=== PATIENT | female | born 1940 | race Caucasian/White ===

== ENCOUNTER → 2016-09-03 | Outpatient (CLI) | payer MEDICARE ==
[2016-09-03 14:52] LABS: Ionized Calcium 5.1 mg/dL (4.5-5.3)
[2016-09-03 15:05] LABS: Calcium 9.5 mg/dL (8.4-10.2)
== END | disposition home or self-care (01) ==
LOC: LABWHC1 13:56
PROVIDERS: ATTEND Internal Medicine
DX: E83.52 Hypercalcemia (principal)
CPT/HCPCS: 36415; 82310; 82330

== ENCOUNTER → 2017-07-07 | Outpatient (CLI) | payer MEDICARE ==
--- NOTE | 2017-07-07 17:33 | US ---
EXAMINATION TYPE: US venous doppler duplex LE BI DATE OF EXAM: 07/07/2017 4:57 PM COMPARISON: NONE CLINICAL HISTORY: Z47.1 Aftercare following joint replacement surgery. Left total hip replacement 2 w eeks prior; bilateral ankle swelling, prior DVT bilateral legs in per patient; on Coumadin. SIDE PERFORMED: Bilateral TECHNIQUE: The lower extremity deep venous system is examined utilizing real time linear array sonog haydee with graded compression, doppler sonography and color-flow sonography. VESSELS IMAGED: Common Femoral Vein Deep Femoral Vein Greater Saphenous Vein * Femoral Vein Popliteal Vein Small Saphenous Vein * Proximal Calf Veins (* superficial vessels) Right Leg: Non occluding chronic wall changes are noted in Right Femoral Vein and in one of two calf veins. Left Leg: Non occluding chronic wall changes are noted in lower Left Popliteal Vein and in one of tw o calf veins. Tech findings reported at exam's end to Dr Matos, utilization supervisor for Dr Gusman. IMPRESSION: The exam shows bilateral limited chronic deep venous thrombosis. No evidence of acute de ep venous thrombosis.
== END | disposition home or self-care (01) ==
LOC: RADUSWWP 15:48
PROVIDERS: ATTEND Orthopaedic Surgery
DX: I82.503 Chronic embolism and thrombosis of unspecified deep veins of lower extremity, bilateral (principal)
CPT/HCPCS: 93970

== ENCOUNTER 2017-08-09 08:44 | Inpatient (IN) | payer MEDICARE ==
[2017-08-09] MEDS ORDERED: LORazepam 2 MG/ML INJ IV STA (08:50)
[2017-08-09] MEDS ORDERED: IPRATROPIUM 0.5 MG/2.5 ML NEBU INHALATION STA (08:50)
[2017-08-09] MEDS ORDERED: SODIUM CHLORIDE 0.9% 500 ML IV STA (08:50)
[2017-08-09] MEDS ORDERED: ALBUTEROL NEBULIZED 2.5 MG/3 ML INHALATION STA (08:50)
[2017-08-09] MEDS ORDERED: methylPREDNISolone SOD SUCCI 125 MG/2 ML VIAL IV STA (08:50)
[2017-08-09] MEDS ORDERED: SODIUM CHLORIDE 0.9% 1,000 ML IV STA (08:50)
--- NOTE | 2017-08-09 08:59 | ED ---
General Adult HPI - General Chief complaint: Shortness of Breath Stated complaint: Diff Breathing Time Seen by Provider: 08/09/17 08:45 Source: patient, EMS, RN notes reviewed, old records reviewed Mode of arrival: EMS Limitations: no limitations - History of Present Illness Initial comments: This is a 68-year-old female to the ER for evaluation today. Patient presents here today for evaluation in regards to shortness of breath patient reassurance of breath. Patient unable to give history secondary to significant shortness of breath. Pulse ox per EMS at home was in the 60s to patiently currently on nonrebreather pulse ox in the 90s. History obtained by EMS recent diagnosis of pneumonia, patient is complaining of cough congestion shortness of breath, denies fevers no chest pain - Related Data Home Medications Medication Instructions Recorded Confirmed Acetaminophen/Diphenhydramine 1 tab PO HS PRN 06/17/17 08/09/17 [Tylenol PM 500-25mg] Aspirin EC [Ecotrin Low Dose] 81 mg PO DAILY 06/17/17 08/09/17 Cetirizine HCl [Zyrtec] 10 mg PO DAILY 06/17/17 08/09/17 Metoprolol Succinate (ER) [Toprol 50 mg PO BID 06/17/17 08/09/17 XL] Omeprazole Magnesium [Prilosec OTC] 20 mg PO DAILY 06/17/17 08/09/17 Telmisartan [Micardis] 80 mg PO DAILY 06/17/17 08/09/17 Albuterol Nebulized [Ventolin 2.5 mg INHALATION RT-Q2H PRN 08/09/17 08/09/17 Nebulized] Albuterol Sulfate [Proair Hfa] 1 - 2 puff INHALATION RT-Q6H PRN 08/09/17 Furosemide [Lasix] 20 mg PO DAILY 08/09/17 08/09/17 Warfarin [Coumadin] 2.5 mg PO DAILY@1800 08/09/17 08/09/17 traMADol HCL [Ultram] 50 mg PO Q6H PRN 08/09/17 08/09/17 Previous Rx's Medication Instructions Recorded Sennosides-Docusate Sodium 1 tab PO BID #60 tablet 06/21/17 [Senokot-S] amLODIPine [Norvasc] 5 mg PO HS tab 06/22/17 Allergies Allergy/AdvReac Type Severity Reaction Status Date / Time aspirin Allergy Unknown Verified 08/09/17 09:25 codeine Allergy Unknown Verified 08/09/17 09:25 insect venom Allergy Unknown Verified 08/09/17 09:25 Penicillins Allergy Unknown Verified 08/09/17 09:25 shellfish derived [Shellfish] Allergy Unknown Verified 08/09/17 09:25 Review of Systems ROS Statement: Those systems with pertinent positive or pertinent negative responses have been documented in the HPI. ROS Other: All systems not noted in ROS Statement are negative. Past Medical History Past Medical History: COPD, Hypertension History of Any Multi-Drug Resistant Organisms: None Reported Past Surgical History: Section, Cholecystectomy, Hernia Repair, Orthopedic Surgery, Tonsillectomy, Tubal Ligation Past Anesthesia/Blood Transfusion Reactions: No Reported Reaction Additional Past Anesthesia/Blood Transfusion Reaction / Comment(s): never had a blood transfusion Past Psychological History: No Psychological Hx Reported Smoking Status: Former smoker Past Alcohol Use History: None Reported Past Drug Use History: None Reported - Past Family History Father Family Medical History: No Reported History Mother Family Medical History: No Reported History General Exam Limitations: no limitations General appearance: alert, in no apparent distress, anxious Head exam: Present: atraumatic, normocephalic, normal inspection Eye exam: Present: normal appearance, PERRL, EOMI. Absent: scleral icterus, conjunctival injection, periorbital swelling ENT exam: Present: normal exam, mucous membranes moist Neck exam: Present: normal inspection. Absent: tenderness, meningismus, lymphadenopathy Respiratory exam: Present: normal lung sounds bilaterally, respiratory distress , wheezes, accessory muscle use, decreased breath sounds, prolonged expiratory. Absent: rales, rhonchi, stridor Cardiovascular Exam: Present: normal rhythm, tachycardia, normal heart sounds. Absent: systolic murmur, diastolic murmur, rubs, gallop, clicks GI/Abdominal exam: Present: soft, normal bowel sounds. Absent: distended, tenderness, guarding, rebound, rigid Extremities exam: Present: normal inspection, full ROM, normal capillary refill. Absent: tenderness, pedal edema, joint swelling, calf tenderness Back exam: Present: normal inspection Neurological exam: Present: alert, oriented X3, CN II-XII intact Psychiatric exam: Present: normal affect, normal mood Skin exam: Present: warm, dry, intact, normal color. Absent: rash Course Vital Signs 08/09/17 08/09/17 08/09/17 08:45 08:55 09:08 Temperature 98.4 F Pulse Rate 114 H 110 H 107 H Respiratory 39 H 36 H Rate Blood Pressure 187/91 O2 Sat by Pulse 86 L 99 Oximetry 08/09/17 08/09/17 08/09/17 09:17 09:25 09:55 Temperature Pulse Rate 105 H 111 H 113 H Respiratory 29 H Rate Blood Pressure 132/63 O2 Sat by Pulse 97 Oximetry 08/09/17 08/09/17 10:04 10:30 Temperature Pulse Rate 113 H 114 H Respiratory 36 H Rate Blood Pressure 136/59 O2 Sat by Pulse 93 L Oximetry - Reevaluation(s) Reevaluation #1: 08/09/17 10:44 no improvfement w breathing treatment, patient to be placed on bipap EKG Findings - EKG Comments: EKG Findings:: EKG shows sinus tachycardia rate of 107, LA 146, QRS 68, QTc 427 - EKG Results: EKG: interpreted by ANN Medical Decision Making - Medical Decision Making 76 female to the ED co sob, hypoxia, cough and congestion, patient is placed on bipap secondarily to work of breathing, patient has low o2, improved with breathing treatments, and o2 - Lab Data Result diagrams: 08/09/17 08:55 08/09/17 08:55 Lab Results 08/09/17 08/09/17 08/09/17 Range/Units 08:55 08:55 08:55 WBC 12.4 H (3.8-10.6) k/uL RBC 4.25 (3.80-5.40) m/uL Hgb 12.3 (11.4-16.0) gm/dL Hct 39.7 (34.0-46.0) % MCV 93.6 (80.0-100.0) fL MCH 28.8 (25.0-35.0) pg MCHC 30.8 L (31.0-37.0) g/dL RDW 15.2 (11.5-15.5) % Plt Count 257 (150-450) k/uL Neutrophils % 75 % Lymphocytes % 21 % Monocytes % 3 % Eosinophils % 0 % Basophils % 0 % Neutrophils # 9.3 H (1.3-7.7) k/uL Lymphocytes # 2.6 (1.0-4.8) k/uL Monocytes # 0.3 (0-1.0) k/uL Eosinophils # 0.0 (0-0.7) k/uL Basophils # 0.0 (0-0.2) k/uL Hypochromasia Moderate PT (9.0-12.0) sec INR (<1.2) APTT (22.0-30.0) sec Sodium (137-145) mmol/L Potassium (3.5-5.1) mmol/L Chloride (98-107) mmol/L Carbon Dioxide (22-30) mmol/L Anion Gap mmol/L BUN (7-17) mg/dL Creatinine (0.52-1.04) mg/dL Est GFR (MDRD) Af Amer (>60 ml/min/1.73 sqM) Est GFR (MDRD) Non-Af (>60 ml/min/1.73 sqM) Glucose (74-99) mg/dL Calcium (8.4-10.2) mg/dL Magnesium (1.6-2.3) mg/dL Total Bilirubin (0.2-1.3) mg/dL AST (14-36) U/L ALT (9-52) U/L Alkaline Phosphatase (38-126) U/L Total Creatine Kinase <20 L (30-135) U/L CK-MB (CK-2) 1.3 (0.0-2.4) ng/mL CK-MB (CK-2) Rel Index Troponin I <0.012 (0.000-0.034) ng/mL NT-Pro-B Natriuret Pep 375 pg/mL Total Protein (6.3-8.2) g/dL Albumin (3.5-5.0) g/dL 08/09/17 08/09/17 Range/Units 08:55 08:55 WBC (3.8-10.6) k/uL RBC (3.80-5.40) m/uL Hgb (11.4-16.0) gm/dL Hct (34.0-46.0) % MCV (80.0-100.0) fL MCH (25.0-35.0) pg MCHC (31.0-37.0) g/dL RDW (11.5-15.5) % Plt Count (150-450) k/uL Neutrophils % % Lymphocytes % % Monocytes % % Eosinophils % % Basophils % % Neutrophils # (1.3-7.7) k/uL Lymphocytes # (1.0-4.8) k/uL Monocytes # (0-1.0) k/uL Eosinophils # (0-0.7) k/uL Basophils # (0-0.2) k/uL Hypochromasia PT 22.3 H (9.0-12.0) sec INR 2.5 H (<1.2) APTT 26.3 (22.0-30.0) sec Sodium 145 (137-145) mmol/L Potassium 3.3 L (3.5-5.1) mmol/L Chloride 99 (98-107) mmol/L Carbon Dioxide 39 H (22-30) mmol/L Anion Gap 7 mmol/L BUN 20 H (7-17) mg/dL Creatinine 0.67 (0.52-1.04) mg/dL Est GFR (MDRD) Af Amer >60 (>60 ml/min/1.73 sqM) Est GFR (MDRD) Non-Af >60 (>60 ml/min/1.73 sqM) Glucose 144 H (74-99) mg/dL Calcium 9.5 (8.4-10.2) mg/dL Magnesium 1.8 (1.6-2.3) mg/dL Total Bilirubin 0.9 (0.2-1.3) mg/dL AST 16 (14-36) U/L ALT 24 (9-52) U/L Alkaline Phosphatase 103 (38-126) U/L Total Creatine Kinase (30-135) U/L CK-MB (CK-2) (0.0-2.4) ng/mL CK-MB (CK-2) Rel Index Troponin I (0.000-0.034) ng/mL NT-Pro-B Natriuret Pep pg/mL Total Protein 6.5 (6.3-8.2) g/dL Albumin 3.3 L (3.5-5.0) g/dL - Radiology Data Radiology results: report reviewed (CXR is negative), image reviewed Critical Care Time Critical Care Time: Yes Total Critical Care Time: 31 Disposition Clinical Impression: COPD exacerbation, Hypoxemia, Acute exacerbation of chronic obstructive airways disease, Acute respiratory failure Disposition: ADMITTED IP TO THIS HOSP Condition: Serious Referrals: Benigno Salinas MD [Primary Care Provider] - 1-2 days
[2017-08-09 09:12] LABS: Basophils % (A) 0 %; Eosinophils % (A) 0 %; HCT 39.7 % (34.0-46.0); HGB 12.3 gm/dL (11.4-16.0); Hypochromasia Moderate; Lymphocytes # (A) 2.6 k/uL (1.0-4.8); Lymphocytes % (A) 21 %; MCH 28.8 pg (25.0-35.0); MCHC 30.8 g/dL (31.0-37.0); MCV 93.6 fL (80.0-100.0); Mean Platelet Volume 7.2; Monocytes # (A) 0.3 k/uL (0-1.0); Monocytes % (A) 3 %; Neutrophils # (A) 9.3 k/uL (1.3-7.7); Neutrophils % (A) 75 %; Platelet Count 257 k/uL (150-450); RBC 4.25 m/uL (3.80-5.40); RDW 15.2 % (11.5-15.5); WBC 12.4 k/uL (3.8-10.6)
--- NOTE | 2017-08-09 09:15 | XR ---
EXAMINATION TYPE: XR chest 1V portable DATE OF EXAM: 08/09/2017 HISTORY: sob. REFERENCE: Previous study dated 07/24/2017. FINDINGS: The lungs are overinflated. The lungs now appear clear. Pleural spaces are clear. The heart is mildly enlarged. IMPRESSION: 1. COPD. 2. MILD CARDIOMEGALY.
[2017-08-09 09:22] LABS: ALT 24 U/L (9-52); AST 16 U/L (14-36); Albumin 3.3 g/dL (3.5-5.0); Alkaline Phosphatase 103 U/L (38-126); Anion Gap 7 mmol/L; Blood Urea Nitrogen 20 mg/dL (7-17); Calcium 9.5 mg/dL (8.4-10.2); Carbon Dioxide 39 mmol/L (22-30); Chloride 99 mmol/L (98-107); Glucose 144 mg/dL (74-99); INR 2.5 (<1.2); Magnesium 1.8 mg/dL (1.6-2.3); Partial Thromboplastin Time 26.3 sec (22.0-30.0); Potassium 3.3 mmol/L (3.5-5.1); Prothrombin Time 22.3 sec (9.0-12.0); Sodium 145 mmol/L (137-145); Total Bilirubin 0.9 mg/dL (0.2-1.3); Total Protein 6.5 g/dL (6.3-8.2)
[2017-08-09 09:37] LABS: Creatine Kinase <20 U/L (30-135)
[2017-08-09 09:51] LABS: Creatine Kinase MB 1.3 ng/mL (0.0-2.4); Troponin I <0.012 ng/mL (0.000-0.034)
[2017-08-09] MEDS ORDERED: ONDANSETRON 4 MG/2 ML VIAL IVP STA (10:30)
[2017-08-09] MEDS ORDERED: AZITHROMYCIN 500 MG TAB PO SCH (11:45)
[2017-08-09] MEDS: SODIUM CHLORIDE 0.9% 1,000 ML IV SCH ×2 (12:26→17:52)
[2017-08-09 12:29] LABS: ABG PH 7.44 (7.35-7.45)
[2017-08-09 12:30] LABS: ABG HCO3 34 mmol/L (21-25); ABG PCO2 51 mmHg (35-45); ABG PO2 220 mmHg (83-108); ABG TCO2 36 mmol/L (19-24)
[2017-08-09 12:31] LABS: ABG Base Excess 9.5 mmol/L
--- NOTE | 2017-08-09 12:46 | P.CNPUL ---
History of Present Illness Consult date: 08/09/17 Requesting physician: Benigno Salinas Reason for consult: COPD Chief complaint: Shortness of breath History of present illness: This is a 68-year-old female who is quite familiar to my service, I saw this patient until on her last admission for shortness of breath which was felt to be related to COPD and pneumonia involving the left lower lobe. Patient was treated and she was eventually discharged home. During her last admission, she was also worked up for pulmonary embolism, and the workup was negative. Patient had hip surgery, and she remains on anticoagulation therapy in the form of within which is therapeutic with INR of 2.5 today. Patient also describes intermittent episodes of cough, and she was noted to have low pulse oximetry before she came into the ER were and her pulse oximetry was in the 60s. Patient was placed on a nonrebreather, and as she was transferred to [facility], she was placed on BiPAP, and ABG was done while on BiPAP. Her BiPAP settings were on the percent FiO2, IPAP of 12 and EPAP of 5. ABG on Zosyn in showed a pO2 of 220 pCO2 of 51 pH of 7.44. Hence the patient will be switched from BiPAP to a nasal cannula. Chest x-ray on this admission showed no evidence of active disease. Patient denies any headaches, no blurred vision no dizziness, no fever, no chills, no hemoptysis, no chest pain. No nausea no vomiting no abdominal pain, she was mostly complaining of shortness of breath. Review of Systems 14 point review of systems were obtained, please refer to pertinent positives and negatives in HPI, otherwise remaining systems are negative. Past Medical History Past Medical History: COPD, Hypertension History of Any Multi-Drug Resistant Organisms: None Reported Past Surgical History: Section, Cholecystectomy, Hernia Repair, Orthopedic Surgery, Tonsillectomy, Tubal Ligation Past Anesthesia/Blood Transfusion Reactions: No Reported Reaction Additional Past Anesthesia/Blood Transfusion Reaction / Comment(s): never had a blood transfusion Past Psychological History: No Psychological Hx Reported Smoking Status: Former smoker Past Alcohol Use History: None Reported Past Drug Use History: None Reported - Past Family History Father Family Medical History: No Reported History Mother Family Medical History: No Reported History Medications and Allergies Home Medications Medication Instructions Recorded Confirmed Type Acetaminophen/Diphenhydramine 1 tab PO HS PRN 06/17/17 08/09/17 History [Tylenol PM 500-25mg] Aspirin EC [Ecotrin Low Dose] 81 mg PO DAILY 06/17/17 08/09/17 History Cetirizine HCl [Zyrtec] 10 mg PO DAILY 06/17/17 08/09/17 History Metoprolol Succinate (ER) [Toprol 50 mg PO BID 06/17/17 08/09/17 History XL] Omeprazole Magnesium [Prilosec OTC] 20 mg PO DAILY 06/17/17 08/09/17 History Telmisartan [Micardis] 80 mg PO DAILY 06/17/17 08/09/17 History Sennosides-Docusate Sodium 1 tab PO BID #60 tablet 06/21/17 08/09/17 Rx [Senokot-S] amLODIPine [Norvasc] 5 mg PO HS tab 06/22/17 08/09/17 Rx Albuterol Nebulized [Ventolin 2.5 mg INHALATION RT-Q2H PRN 08/09/17 08/09/17 History Nebulized] Albuterol Sulfate [Proair Hfa] 1 - 2 puff INHALATION RT-Q6H PRN 08/09/17 History Furosemide [Lasix] 20 mg PO DAILY 08/09/17 08/09/17 History Warfarin [Coumadin] 2.5 mg PO DAILY@1800 08/09/17 08/09/17 History traMADol HCL [Ultram] 50 mg PO Q6H PRN 08/09/17 08/09/17 History Allergies Allergy/AdvReac Type Severity Reaction Status Date / Time aspirin Allergy Unknown Verified 08/09/17 09:25 codeine Allergy Unknown Verified 08/09/17 09:25 insect venom Allergy Unknown Verified 08/09/17 09:25 Penicillins Allergy Unknown Verified 08/09/17 09:25 shellfish derived [Shellfish] Allergy Unknown Verified 08/09/17 09:25 Physical Exam Vitals: Vital Signs Temp Pulse Resp BP Pulse Ox 08/09/17 10:49 108 H 29 H 98 08/09/17 10:30 114 H 36 H 136/59 93 L 08/09/17 10:04 113 H 08/09/17 09:55 113 H 08/09/17 09:25 111 H 08/09/17 09:17 105 H 29 H 132/63 97 08/09/17 09:08 107 H 08/09/17 08:55 110 H 36 H 99 08/09/17 08:45 98.4 F 114 H 39 H 187/91 86 L Intake and Output 08/08/17 08/09/17 08/09/17 22:59 06:59 14:59 Other: Weight 71.668 kg Patient Weight 08/10/17 06:59 Weight 71.668 kg GENERAL EXAM: Alert, fairly comfortable in no apparent distress. However the patient is on BiPAP at the time of my evaluation. HEAD: Normocephalic. EYES: Normal reaction of pupils, equal size. NOSE: Clear with pink turbinates. THROAT: No erythema or exudates. NECK: No masses, no JVD. CHEST: No chest wall deformity. LUNGS: Equal air entry, diminished at the bases, slight wheezing on forced expiratory maneuver noted bilaterally. CVS: S1 and S2 normal with no audible murmur, regular rhythm. ABDOMEN: No hepatosplenomegaly, normal bowel sounds, no guarding or rigidity. SPINE: No scoliosis or deformity SKIN: No rashes CENTRAL NERVOUS SYSTEM: No focal deficits, tone is normal in all 4 extremities. EXTREMITIES: There is no peripheral edema. No clubbing, no cyanosis. Peripheral pulses are intact. Results - Laboratory Findings CBC and BMP: 08/09/17 08:55 08/09/17 08:55 ABG ABG pH 7.44 (7.35-7.45) 08/09/17 12:22 ABG pCO2 51 mmHg (35-45) H 08/09/17 12:22 ABG pO2 220 mmHg (83-108) H 08/09/17 12:22 ABG O2 Saturation 100.0 % (94-97) H 08/09/17 12:22 PT/INR, D-dimer PT 22.3 sec (9.0-12.0) H 08/09/17 08:55 INR 2.5 (<1.2) H 08/09/17 08:55 Abnormal lab findings: Abnormal Labs 08/09/17 08/09/17 08/09/17 08:55 08:55 08:55 WBC 12.4 H MCHC 30.8 L Neutrophils # 9.3 H PT INR ABG pCO2 ABG pO2 ABG HCO3 ABG Total CO2 ABG O2 Saturation Potassium 3.3 L Carbon Dioxide 39 H BUN 20 H Glucose 144 H Total Creatine Kinase <20 L Albumin 3.3 L 08/09/17 08/09/17 08:55 12:22 WBC MCHC Neutrophils # PT 22.3 H INR 2.5 H ABG pCO2 51 H ABG pO2 220 H ABG HCO3 34 H ABG Total CO2 36 H ABG O2 Saturation 100.0 H Potassium Carbon Dioxide BUN Glucose Total Creatine Kinase Albumin - Diagnostic Findings Chest x-ray: image reviewed (Mild cardiomegaly, COPD, lungs are clear.) Assessment and Plan Assessment: Impression: 1 acute on chronic hypoxic respiratory failure secondary to acute exacerbation of COPD. 2 recent history of left lower lobe pneumonia, healthcare acquired, resolved, and workup on her last admission for pulmonary embolism was negative. 3 history of left hip fracture requiring hemiarthroplasty, remains on Coumadin, and it is therapeutic with INR of 2.5. 4 history of hypertension 5 history of chronic ongoing tobacco dependence. Recommendation: Continue present course of treatment including O2, bronchodilators, steroids, empiric antibiotics, will follow closely. No need for repeat CT of the chest at this point. Time with Patient: Greater than 30
[2017-08-09] MEDS: INSULIN ASPART 100 UNIT/ML 1 ML 10 ML VIAL SQ SCH ×3 (13:35→21:03)
[2017-08-09] MEDS: IPRATROPIUM-ALBUTEROL 3 ML NEB INHALATION SCH ×3 (13:42→19:43)
[2017-08-09] MEDS: POTASSIUM CHLORIDE 20 MEQ, LIDOCAINE 2% INJ 20 MG in SODIUM CHLORIDE 0.9% 100 ML IVPB SCH ×3 (13:43→17:42)
[2017-08-09] MEDS: methylPREDNISolone SOD SUCCI 125 MG/2 ML VIAL IV SCH ×3 (13:43→23:11)
--- NOTE | 2017-08-09 13:51 | HP ---
HISTORY AND PHYSICAL DATE OF SERVICE: 08/09/2017 76-year-old white female, single, . NEW DATA: Height is 5 feet 1 inch. Weight 71.668 kg, BSA 1.71 m2, BMI 29.9 kg/m2. ALLERGIES: SHE IS ALLERGIC TO ASPIRIN, CODEINE, AND INSECT VENOM, PENICILLIN, SHELLFISH, AND DERIVATIVE. CHIEF COMPLAINT: The patient presented to the emergency room, brought by ambulance from home and with the severe hypoxemia and her pulse ox at home was 60-68% only and with some oral cyanosis. HISTORY OF PRESENT ILLNESS: A 76-year-old white female presented to the emergency room and found that she has been short of breath and as well as wake up this morning with hypoxemia. They called the EMS, was in the 60s. Subsequently, they started her on non- rebreather and brought her to the emergency room. The patient was discharged recently after Hospital admission with the pneumonia of the left lung and she had at that time very high flow of oxygen up to [address] Lane did graduate her down to a 4 L only and cleared for discharge. She also discharged at that time with antibiotic. On this admission, her chest x-ray was negative for pneumonia, but she has severe hypoxemia and decompensation with the underlying acute respiratory failure. The etiology is unclear. The patient also her caregiver stated that her blood pressure was high at home. However, when she come in the emergency room they gave her a bolus of 500, which is not recorded on the computer. Her blood pressure at that time and the only way to give the bolus is a consideration of hypotension. On the floor, as patient was started in the ER on BiPAP and currently her blood pressure in the 80s over 48 with the underlying hypotension and at that time, we increased on the floor her IV fluid as well as obtaining lactic acid and cultures for the urine and blood with the possibility of hypotension secondary to sepsis in spite that the chest x-ray came back as negative as the report from the ER that she has COPD and mild cardiomegaly. No presence of pneumonia on the x-ray. PAST MEDICAL HISTORY: Chronic respiratory failure and however on this admission, she had acute respiratory failure with failure with hypoxemia with the desaturation. She had history of hypertension, hypertensive heart disease and asthma. In her last admission, we did a CT scan angiogram to rule out PE which was negative for PE and we also requested a V/Q scan. The patient could not stand for sitting on her back and she refused the CT scan. She had also a history of DVT of the left lower extremities and she was treated with heparin followed by Coumadin at that time. Her previous admission she had echocardiogram and the echocardiogram was indicating that she had left ventricular size is normal and she had the ejection fraction 55-60%. Mild aortic valve sclerosis and a gradient in the aortic valve is 25.77 mmHg over 9.55 mmHg with mild aortic stenosis. She had also mitral regurg, tricuspid regurg, and [id number] pulmonary hypertension. She had a fracture of the left hip and underwent hemiarthroplasty of the left hip. She had history of remote history of coronary artery disease and history of osteoporosis. SOCIAL HISTORY: She has a chronic smoker for more than 30 years. However, she quit smoking in her last admission to the hospital. She had also inability to comply with statin. She had history of underlying diastolic dysfunction. However, that was not clear. ALLERGIES: ALLERGY IS SHE HAD ASPIRIN BEE-STING, CODEINE, PENICILLIN, IV DYE. MEDICATION: She has been on bronchodilator at home and she had a caregiver and she also has a stool softener, tramadol, warfarin. She has been on 2.5 mg p.o. daily. The patient currently on the BiPAP. REVIEW OF SYMPTOMS: Full review of systems could not be obtained and however the history taken from the caregiver and she stated that she would wake up with severe hypoxemia and her pulse ox was in the 60s and she does not look good. On examination, the patient was on BiPAP bilaterally. She is conscious, alert, and her vital sign indicating that temperature on the floor 98.7. Her respiratory rate is 26- 29. Her blood pressure 80/42 and was prior to that, 76/43 with a mean blood pressure 54. Also 83/39 on the BiPAP 100%. We obtained the ABGs and the ABGs was called to Dr. Hamilton who gradually decreased her oxygen per the pulmonary. Pulmonary consultation was requested immediately and patient seen by Dr. Hamilton. With the underlying pulmonary hypertension also the hypotension and she is currently on the BiPAP and we will be working out for possible sepsis and for that purpose we obtained the urinalysis, culture and sensitivity. Blood culture and sputum culture as well. With the acute desaturation and hypoxemia as well as lactic acid to indicate the inflammatory process. PHYSICAL EXAMINATION: The patient was conscious, alert, but she could not communicate with the BiPAP and with the hypoxemia and hypotension. Her HEENT was negative. Neck was supple. Chest was clear and however, she is on BiPAP and the lung is created with a positive pressure breathing. The heart was sinus tachycardia. The abdomen was soft, obese, positive bowel sounds. EXTREMITIES: No edema and positive pulses. Currently is hypotensive and we will increase her IV fluid as well and she started on steroid in the emergency room and given steroid with a questionable possibility of adrenal insufficiency. LABORATORY: The patient was leukocytes. White count 12.4 with hemoglobin 12.3, hematocrit 39, and her pro-time is 22.3 and INR 2.5, which is therapeutic for anticoagulation. Her ABGs showed that she has respiratory failure with a CO2 of 51 and the PO2 220 and a bicarb was 34 and she was on 100%. Electrolytes, the sodium 145, and potassium was low 30.3, and she had supplementation per protocol. Her carbon dioxide was 39 with the carbon dioxide retention. Her anion gap is 7 and creatinine 0.67 and BUN of 20. Her estimated glomerular filtration rate more than 60, sugar glucose 144, and serum magnesium is normal. AST 16, ALT 24, and her serum total creatine kinase is less than 20, normal. No cardiac event. Her troponin less than 0.012 and beta nitrate peptide is 375 and total protein 6.5, and albumin 3.3 on admission. ASSESSMENT: Acute respiratory failure and currently on BiPAP. However, we will be looking for her V/Q scan to clarify the issue off pulmonary embolism or CT scan of the chest with contrast and will be discussing with Pulmonary. If we can wait until her acute respiratory failure and hypotension is improved. Currently, the patient on anticoagulation of the Coumadin and currently therapeutic and she is on BiPAP, by the Pulmonary. IMPRESSION: 1. Acute respiratory failure with severe hypoxemia with no pneumonia. 2. Underlying chronic respiratory failure. 3. Electrolyte imbalance with hypokalemia. 4. Questionable pulmonary embolism was considered with the previous history of left lower extremities deep vein thrombosis. Patient at this time in critical situation due to the hypoxemia and hypotension and we will wait for the V/Q scan or the CT scan angio for pulmonary embolism until we were able to clarify that issue. MMODL / IJN: [id number] /
[2017-08-09 16:44] LABS: Appearance,Urine Cloudy (Clear); Bacteria,Urine Rare /hpf; Bilirubin,Urine Negative (Negative); Blood,Urine Negative (Negative); Cellular Casts,Urine 13 /lpf (0); Color,Urine Yellow; Glucose,Urine (UA) Negative (Negative); Granular Casts,Urine 6 /lpf (0); Hyaline Casts,Urine 63 /lpf (0-2); Ketones,Urine Negative (Negative); Leukocyte Esterase,Urine Moderate (Negative); Mucus,Urine Occasional /hpf; Nitrite,Urine Negative (Negative); PH, Urine 5.5 (5.0-8.0); Protein,Urine 1+ (Negative); RBC,Urine 2 /hpf (0-5); Specific Gravity,Urine 1.017 (1.001-1.035); Squamous Epithelial Cell,Urine 7 /hpf (0-4); WBC,Urine 25 /hpf (0-5)
[2017-08-09 16:47] LABS: Glucose,Whole Blood 275 mg/dL (75-99)
[2017-08-09] MEDS ORDERED: RX INFO: IV CONTRAST WAS GIVEN 1 EACH MISC MISCELLANE PRN (17:01)
--- NOTE | 2017-08-09 17:47 | CT ---
EXAMINATION TYPE: CT angio chest DATE OF EXAM: 08/09/2017 COMPARISON: 07/17/2017 HISTORY: 76-year-old female SOB, R/O PE TECHNIQUE: Contiguous axial scanning of the chest performed with IV Contrast, patient injected with 7 0 mL of Omnipaque 350. Coronal/sagittal MIP reconstructions performed. CT DLP: 239.1 mGycm Automated exposure control for dose reduction was used. FINDINGS: Heart is upper limits of normal in size without pericardial effusion. Coronary vessel calcifications are present in remarkable for coronary artery disease. Aorta is normal caliber with mild atherosclerotic calcifications and conventional arch vessel branchi ng anatomy. Satisfactory opacification of the pulmonary arterial system. There is respiratory motion limiting the evaluation Nonenlarged and mildly enlarged mesenteric lymph nodes are present, measuring up to 8 mm in the AP wi ndow, 9 mm precarinal region, and 1.2 cm left tracheobronchial angle. This tracheobronchial angle lym ph node appears slightly smaller measuring 1.4 cm, previously. There is some layering debris within the distal mainstem bronchi and in the proximal left lower lobe are bronchus. Some dependent consolidation or atelectasis at the posterior left base is improved from prior. There are some patchy groundglass posterior right base, inferior lingula, lingula, and diving instructor ior left upper lobe are noted. Background of [id number] emphysema. This seems to be a moderate-sized hiatal hernia but there is thickening along the site of hernia and some dependent fluid and debris within the distal esophagus and hernia. Some hyperdensity also present here, axial image 112 of uncertain etiology, possibly some type of hyp erdense ingested material. Diffuse low-density thickening of both adrenal glands as seen previously. Cholecystectomy clips. Bones: No osseous destructive process. IMPRESSION: 1. COPD. NO EVIDENCE FOR PULMONARY EMBOLUS. 2. WHILE THE DEPENDENT ATELECTASIS AND CONSOLIDATION AT THE LEFT LOWER LOBE SHOWS PARTIAL IMPROVEMENT , THERE IS NEW FOCAL GROUNDGLASS DENSITIES THROUGHOUT THE LEFT UPPER LOBE. CORRELATE FOR INFECTIOUS O R ASPIRATION PNEUMONITIS GIVEN LAYERING DEBRIS/SECRETIONS IN THE MAINSTEM BRONCHI. 3. MODERATE-SIZED HIATAL HERNIA. THERE IS WALL THICKENING AT THE GE JUNCTION AND HERNIA. RECOMMEND DI RECT VISUALIZATION TO EXCLUDE NEOPLASM. 4. SOME NONSPECIFIC HYPERDENSITY PROJECTING ALONG THE DEPENDENT PORTION OF THE HIATAL HERNIA. ETIOLOG Y IS UNCERTAIN. POSSIBLE HIGH DENSITY INGESTED MATERIAL. CORRELATE WITH PATIENT'S HEMOGLOBIN LEVEL AN D FOR ANY HEMATEMESIS/BLOOD IN THE STOOL TO EXCLUDE GI BLEED HERE. AGAIN, DIRECT VISUALIZATION MAY BE HELPFUL.
[2017-08-09] MEDS ORDERED: WARFARIN 2.5 MG TAB PO SCH ×2 (18:00)
[2017-08-09] MEDS: cefTRIAXone IN SWFI 1,000 MG/10 ML SYRINGE IVP SCH (18:36)
[2017-08-09] MEDS: LEVOFLOXACIN 750MG-D5W PMX 750 MG in DEXTROSE/WATER 1 150ML.BAG IVPB SCH (18:36)
[2017-08-09] MEDS: SYMBICORT 160-4.5 MCG INHALER INHALATION SCH (20:02)
[2017-08-09] MEDS: METOPROLOL SUCCINATE (ER) 50 MG TAB.ER.24H PO SCH (20:03)
[2017-08-09] MEDS: SENNOSIDES-DOCUSATE SODIUM 1 EACH TAB PO SCH (20:04)
[2017-08-09 20:17] LABS: Hemoglobin A1C 5.8 % (4.0-6.0)
[2017-08-09 20:57] LABS: Glucose,Whole Blood 182 mg/dL (75-99)
[2017-08-10] MEDS: SODIUM CHLORIDE 0.9% 1,000 ML IV SCH ×4 (03:56→16:37)
[2017-08-10 06:08] LABS: Basophils % (A) 0 %; Eosinophils % (A) 0 %; HCT 29.8 % (34.0-46.0); Hypochromasia Moderate; Lymphocytes # (A) 0.5 k/uL (1.0-4.8); Lymphocytes % (A) 5 %; MCHC 30.8 g/dL (31.0-37.0); MCV 94.2 fL (80.0-100.0); Mean Platelet Volume 7.4; Monocytes # (A) 0.1 k/uL (0-1.0); Monocytes % (A) 1 %; Neutrophils # (A) 8.5 k/uL (1.3-7.7); Neutrophils % (A) 93 %; Platelet Count 223 k/uL (150-450); RBC 3.16 m/uL (3.80-5.40); RDW 15.3 % (11.5-15.5); WBC 9.2 k/uL (3.8-10.6)
[2017-08-10 06:17] LABS: Anion Gap 4 mmol/L; Blood Urea Nitrogen 26 mg/dL (7-17); Carbon Dioxide 33 mmol/L (22-30); Chloride 109 mmol/L (98-107); Glucose 123 mg/dL (74-99); Magnesium 1.8 mg/dL (1.6-2.3); Potassium 4.5 mmol/L (3.5-5.1); Sodium 146 mmol/L (137-145)
[2017-08-10 06:27] LABS: HGB 9.2 gm/dL (11.4-16.0)
[2017-08-10 06:29] LABS: Glucose,Whole Blood 124 mg/dL (75-99)
[2017-08-10] MEDS: INSULIN ASPART 100 UNIT/ML 1 ML 10 ML VIAL SQ SCH ×4 (06:34→20:56)
[2017-08-10] MEDS: methylPREDNISolone SOD SUCCI 125 MG/2 ML VIAL IV SCH ×4 (06:35→23:04)
[2017-08-10 06:40] LABS: INR 4.4 (<1.2); Prothrombin Time 39.7 sec (9.0-12.0)
[2017-08-10] MEDS: IPRATROPIUM-ALBUTEROL 3 ML NEB INHALATION SCH ×4 (07:20→19:09)
[2017-08-10] MEDS: SYMBICORT 160-4.5 MCG INHALER INHALATION SCH ×2 (07:20→19:09)
[2017-08-10] MEDS ORDERED: PANTOPRAZOLE 40 MG TABLET PO SCH (07:30)
[2017-08-10] MEDS: cefTRIAXone IN SWFI 1,000 MG/10 ML SYRINGE IVP SCH (08:18)
[2017-08-10] MEDS ORDERED: ASPIRIN 81 MG PO SCH (09:00)
[2017-08-10] MEDS ORDERED: ENOXAPARIN 40 MG/0.4 ML SYRINGE SQ SCH (09:00)
--- NOTE | 2017-08-10 11:20 | P.PN ---
Subjective Progress Note Date: 08/10/17 Principal diagnosis: Acute on chronic hypoxic respiratory failure secondary to COPD exacerbation. This is a 68-year-old female who is quite familiar to my service, I saw this patient until on her last admission for shortness of breath which was felt to be related to COPD and pneumonia involving the left lower lobe. Patient was treated and she was eventually discharged home. During her last admission, she was also worked up for pulmonary embolism, and the workup was negative. Patient had hip surgery, and she remains on anticoagulation therapy in the form of within which is therapeutic with INR of 2.5 today. Patient also describes intermittent episodes of cough, and she was noted to have low pulse oximetry before she came into the ER were and her pulse oximetry was in the 60s. Patient was placed on a nonrebreather, and as she was transferred to [facility] (formerly [facility]3], she was placed on BiPAP, and ABG was done while on BiPAP. Her BiPAP settings were on the percent FiO2, IPAP of 12 and EPAP of 5. ABG on Zosyn in showed a pO2 of 220 pCO2 of 51 pH of 7.44. Hence the patient will be switched from BiPAP to a nasal cannula. Chest x-ray on this admission showed no evidence of active disease. Patient denies any headaches, no blurred vision no dizziness, no fever, no chills, no hemoptysis, no chest pain. No nausea no vomiting no abdominal pain, she was mostly complaining of shortness of breath. Patient was reevaluated today on 08/10/2017, she is presently on nasal cannula, high flow, doing much better compared to how she felt yesterday. I reviewed the CT of the chest, there is no evidence of pulmonary embolism. There is evidence of postinflammatory changes noted in the left lower lobe, and to some extent some areas of pneumonitis in the left upper lobe, could be residual from her last episode of pneumonia, or could be related to rule he to aspiration pneumonia since the patient is a high risk for aspiration, not to mention that the patient has a large hiatal hernia. Considering this, patient may have to have further GI evaluations, possibly a modified barium swallow, possibly even EGD. In the meantime continue antibiotics for possible aspiration pneumonia. Clinically I feel the findings are mostly postinflammatory from the recent extensive left sided pneumonia for which the patient was treated. These findings were not appreciated on the chest x-ray, but clearly seen on the CT of the chest which is more sensitive. Objective - Vital Signs Vital signs: Vital Signs Temp 97.7 F 08/10/17 08:00 Pulse 87 08/10/17 08:00 Resp 24 08/10/17 08:00 BP 113/59 08/10/17 08:00 Pulse Ox 95 08/10/17 08:47 Intake & Output 08/09/17 08/10/17 08/10/17 18:59 06:59 18:59 Intake Total 222 1974 Output Total 500 Balance 222 1475 Weight 61.5 kg 63.5 kg Intake: IV 1974 Levofloxacin 750Mg-D5w 100 Pmx 750 mg In Dextrose/ Water 1 150ml.bag @ 100 mls/hr IVPB Q24H JASON Rx#: [id number] Sodium Chloride 0.9% 1, 1875 000 ml @ 125 mls/hr IV . Q8H JASON Rx#:[id number] Oral 222 Output: Urine 500 Other: Voiding Method Bedpan # Voids 1 0 # Bowel Movements 0 - Exam GENERAL EXAM: Alert, fairly comfortable in no apparent distress. However the patient is on BiPAP at the time of my evaluation. HEAD: Normocephalic. EYES: Normal reaction of pupils, equal size. NOSE: Clear with pink turbinates. THROAT: No erythema or exudates. NECK: No masses, no JVD. CHEST: No chest wall deformity. LUNGS: Equal air entry, diminished at the bases, slight wheezing on forced expiratory maneuver noted bilaterally. CVS: S1 and S2 normal with no audible murmur, regular rhythm. ABDOMEN: No hepatosplenomegaly, normal bowel sounds, no guarding or rigidity. SPINE: No scoliosis or deformity SKIN: No rashes CENTRAL NERVOUS SYSTEM: No focal deficits, tone is normal in all 4 extremities. EXTREMITIES: There is no peripheral edema. No clubbing, no cyanosis. Peripheral pulses are intact. - Labs CBC & Chem 7: 08/10/17 05:39 08/10/17 05:39 Labs: Abnormal Lab Results - Last 24 Hours (Table) 08/09/17 08/09/17 08/09/17 Range/Units 12:22 14:19 16:00 RBC (3.80-5.40) m/uL Hgb (11.4-16.0) gm/dL Hct (34.0-46.0) % MCHC (31.0-37.0) g/dL Neutrophils # (1.3-7.7) k/uL Lymphocytes # (1.0-4.8) k/uL PT (9.0-12.0) sec INR (<1.2) D-Dimer 2.31 H (<0.60) mg/L FEU ABG pCO2 51 H (35-45) mmHg ABG pO2 220 H (83-108) mmHg ABG HCO3 34 H (21-25) mmol/L ABG Total CO2 36 H (19-24) mmol/L ABG O2 Saturation 100.0 H (94-97) % Sodium (137-145) mmol/L Chloride (98-107) mmol/L Carbon Dioxide (22-30) mmol/L BUN (7-17) mg/dL Glucose (74-99) mg/dL POC Glucose (mg/dL) (75-99) mg/dL Urine Appearance Cloudy H (Clear) Urine Protein 1+ H (Negative) Ur Leukocyte Esterase Moderate H (Negative) Urine WBC 25 H (0-5) /hpf Ur Squamous Epith Cells 7 H (0-4) /hpf Urine Bacteria Rare H (None) /hpf Hyaline Casts 63 H (0-2) /lpf Urine Mucus Occasional H (None) /hpf 08/09/17 08/09/17 08/10/17 Range/Units 16:43 20:52 05:39 RBC (3.80-5.40) m/uL Hgb (11.4-16.0) gm/dL Hct (34.0-46.0) % MCHC (31.0-37.0) g/dL Neutrophils # (1.3-7.7) k/uL Lymphocytes # (1.0-4.8) k/uL PT 39.7 H (9.0-12.0) sec INR 4.4 H (<1.2) D-Dimer (<0.60) mg/L FEU ABG pCO2 (35-45) mmHg ABG pO2 (83-108) mmHg ABG HCO3 (21-25) mmol/L ABG Total CO2 (19-24) mmol/L ABG O2 Saturation (94-97) % Sodium (137-145) mmol/L Chloride (98-107) mmol/L Carbon Dioxide (22-30) mmol/L BUN (7-17) mg/dL Glucose (74-99) mg/dL POC Glucose (mg/dL) 275 H 182 H (75-99) mg/dL Urine Appearance (Clear) Urine Protein (Negative) Ur Leukocyte Esterase (Negative) Urine WBC (0-5) /hpf Ur Squamous Epith Cells (0-4) /hpf Urine Bacteria (None) /hpf Hyaline Casts (0-2) /lpf Urine Mucus (None) /hpf 08/10/17 08/10/17 08/10/17 Range/Units 05:39 05:39 06:25 RBC 3.16 L (3.80-5.40) m/uL Hgb 9.2 L D (11.4-16.0) gm/dL Hct 29.8 L (34.0-46.0) % MCHC 30.8 L (31.0-37.0) g/dL Neutrophils # 8.5 H (1.3-7.7) k/uL Lymphocytes # 0.5 L (1.0-4.8) k/uL PT (9.0-12.0) sec INR (<1.2) D-Dimer (<0.60) mg/L FEU ABG pCO2 (35-45) mmHg ABG pO2 (83-108) mmHg ABG HCO3 (21-25) mmol/L ABG Total CO2 (19-24) mmol/L ABG O2 Saturation (94-97) % Sodium 146 H (137-145) mmol/L Chloride 109 H (98-107) mmol/L Carbon Dioxide 33 H (22-30) mmol/L BUN 26 H (7-17) mg/dL Glucose 123 H (74-99) mg/dL POC Glucose (mg/dL) 124 H (75-99) mg/dL Urine Appearance (Clear) Urine Protein (Negative) Ur Leukocyte Esterase (Negative) Urine WBC (0-5) /hpf Ur Squamous Epith Cells (0-4) /hpf Urine Bacteria (None) /hpf Hyaline Casts (0-2) /lpf Urine Mucus (None) /hpf Microbiology - Last 24 Hours (Table) 08/09/17 16:00 Urine Culture - Preliminary Urine,Clean Catch Assessment and Plan Assessment: Impression: 1 acute on chronic hypoxic respiratory failure secondary to acute exacerbation of COPD. 2 recent history of left lower lobe pneumonia, healthcare acquired, resolved, and workup on her last admission for pulmonary embolism was negative. 3 history of left hip fracture requiring hemiarthroplasty, remains on Coumadin, and it is therapeutic with INR of 2.5. 4 history of hypertension 5 history of chronic ongoing tobacco dependence. 6 possible aspiration pneumonia, although the findings could be related to her recent episode of extensive pneumonia involving the left lung. That is the findings could be postinflammatory in nature. But the patient is truly a high risk for aspiration. And she has a large hiatal hernia noted on the CT of the chest. Patient may need to have further GI workup and modified barium swallow, possibly EGD to evaluate her large hiatal hernia Recommendation: Continue present course of treatment including O2, bronchodilators, steroids, antibiotics, will follow closely. No need for repeat CT of the chest at this point. Time with Patient: Less than 30
[2017-08-10 12:07] LABS: Glucose,Whole Blood 138 mg/dL (75-99)
[2017-08-10] MEDS: SENNOSIDES-DOCUSATE SODIUM 1 EACH TAB PO SCH ×2 (12:18→20:52)
[2017-08-10] MEDS: METOPROLOL TARTRATE 5 MG/5 ML VIAL IVP SCH ×2 (13:04→20:50)
[2017-08-10] MEDS: PANTOPRAZOLE 40 MG/10 ML VIAL IVP SCH (13:05)
[2017-08-10] MEDS: ASPIRIN 300 MG SUPP RECTAL SCH (13:05)
[2017-08-10] MEDS: METOPROLOL SUCCINATE (ER) 50 MG TAB.ER.24H PO SCH (13:24)
[2017-08-10 13:38] LABS: Basophils % (A) 0 %; Eosinophils % (A) 0 %; HGB 9.1 gm/dL (11.4-16.0); Hypochromasia Marked; Lymphocytes # (A) 0.4 k/uL (1.0-4.8); Lymphocytes % (A) 4 %; MCH 28.6 pg (25.0-35.0); MCHC 30.3 g/dL (31.0-37.0); MCV 94.5 fL (80.0-100.0); Mean Platelet Volume 7.6; Monocytes # (A) 0.2 k/uL (0-1.0); Monocytes % (A) 2 %; Neutrophils % (A) 93 %; Platelet Count 233 k/uL (150-450); RBC 3.17 m/uL (3.80-5.40); RDW 15.4 % (11.5-15.5); WBC 9.7 k/uL (3.8-10.6)
[2017-08-10 16:52] LABS: Glucose,Whole Blood 124 mg/dL (75-99)
[2017-08-10] MEDS: LEVOFLOXACIN 750MG-D5W PMX 750 MG in DEXTROSE/WATER 1 150ML.BAG IVPB SCH (17:48)
[2017-08-10 17:58] LABS: Iron Saturation 17.03 (12.00-45.00)
--- NOTE | 2017-08-10 19:35 | PN ---
PROGRESS NOTE DATE OF SERVICE: August 10, 2017 She is 76 years old white female. NEW DATA: She is a 5 foot 1 inch height, weight 63.5 kg, BSA 1.62 m2, BMI 26.5 kg/m per m squared. ALLERGY: ASPIRIN CODEINE INSECT VENOM, PENICILLIN, SHELLFISH. The patient is seen today evaluated and also she seen by Dr. Hamilton, pulmonary and Critical. Her current vital sign is temperature 97.7 axillary and pulse rate 87, respiratory rate 24, her blood pressure markedly improved 113/59, and pulse ox was 95 on high-flow 15 L/minute with the BiPAP has been discontinued by the Pulmonary. On her underlying laboratory indicating that her white count 9.2, and as well as hemoglobin 9.2 and hematocrit 29.8. Her MCV 94.2, and the platelet count 223. Her new level PT 39.7 and 9, INR 4.4, and the Coumadin has been held with the repeat PT and INR on a daily basis. Her sodium 146, and her IV fluids 0.9 normal saline 125 mL/hour has been decreased to 100 with the improvement on her blood pressure, chloride 109, carbon dioxide 33, BUN of 26, creatinine 0.78 with a estimated glomerular filtration rate more than 60. Her blood sugar glucose is 123. He has been monitored because of her steroid as applied and meanwhile steroids causing hyperglycemia and hyperglycemia has been monitored and covered with insulin to scale. Her magnesium 1.8 and calcium 9. On her urine was showed to be that was done yesterday and this was cloudy and moderate leukocyte and WBC 25, and she also had hyaline casts 63. With the protein was 1+ with the assumption of the urinary tract infection and patient was covered already with Levaquin and Rocephin until he has the sensitivity. The patient had D-dimer was 2.31 and that is suspicious. We obtained subsequently CT scan angiogram of the chest and the CT scan angiogram was indicating that the conclusion that she has a COPD with no evidence for PE. She had dependent atelectasis and consolidation in the left lower lobe which shows partial improvement. There is a new focal ground-glass density through out the left upper lobe. So with the recommendation correlation of aspiration pneumonia given the underlying dermis and secretion in the mainstem of the bronchi. She had a moderate sized hiatal hernia. She has a wall thickening at the GE junction and the hernia and recommended direct visual visualization to rule out neoplasm. We did consult Gastroenterology for evaluation. She has nonspecific hyperdensity along the dependent portion of the hiatal hernia, unknown etiology and she had a high density ingested material and correlate with the patient hemoglobin and any hematemesis or blood in the stool, and we will be checking the stool for Hemoccult as well and consulting the Gastroenterology for visualization. She was seen today by Dr. Hamilton. He indicates that she had acute on chronic hypoxic respiratory failure secondary to acute exacerbation of COPD. She had history of recent left lower lobe pneumonia. She had history of left hip fracture with a hemiarthroplasty. She had a history of hypertension, history of chronic tobacco and he discussed the possibility of aspiration pneumonia involving the left lung and upper lobe with the possibility of post inflammatory and the need for a GI workup and modified barium swallow and possibly EGD to evaluate the large hiatal hernia. We did consult the gastroenterology and speech pathology has been seen the patient yesterday and she n.p.o. except currently she requesting ice chips in spite that may cause a problem as aspiration, but the patient is persistent and we tried to avoid that and we limiting her ice cubes. We will continue for his note her current medication and the treatment with bronchodilator and antibiotic. PHYSICAL EXAM: The patient was conscious, alert. She was oriented. Her caregiver at bedside and her temperature is 97.7 axillary. Her heart rate still on the tachycardia side was 105 to 106, however, controlled and occasionally 87, respiratory rate 24, blood pressure 113/59, and a pulse ox 95 on 15 L. she is currently will not be receiving oral medication and we did change her medication to IV discontinuation of Protonix p.o. and started as IV piggyback as well as changing the metoprolol to orally to 2.5 mg q.12 hours and monitoring with the telemetry. After extensive discussion about the risks of the ice chips, and the patient resistant and we allow the ice chips small teaspoon full 5 of them every 6 hours. The nurse was present at the time of the discussion. Currently the chest was recreated with the better improvement on the left lower lobe. However, we have the lower atelectasis. She had coughing and that was the coughing probably could be from pneumonia or could be from aspiration abnormalities. The heart was regular, tachycardic, and she has been on the Coumadin prior to the event for the left lower extremities DVT. The abdomen is soft. Positive bowel sounds. No organ enlargement. EXTREMITIES: No edema. With the underlying prolongation of the pro-time and INR. ASSESSMENT: 1. We have acute hypoxemia with acute respiratory failure with her saturation in the 60s, needed for BiPAP. 2. History of high-flow oxygen 15 L/minute. 3. History of underlying left lower lobe pneumonia. However, now there is scarring and probability of left upper lobe aspiration was considered and workup for that after we had a CT scan of the chest done yesterday. The patient currently n.p.o. except for ice chips and the speech pathology will be doing further investigation tomorrow. Today is a . Further treatment depend on the outcome. We also consulted the Gastroenterology, Dr. Bahena/Dr. Low who is on-call for seeing the patient and evaluated and probably upper EGD if possible as well to rule out thickening of the EG junction and probable biopsy as well added to probably video swallow study with speech pathology for the aspiration and continue the current treatment. The consideration of aspiration pneumonia was highly suspicious. MMODL / IJN: [id number] /
[2017-08-10 20:57] LABS: Glucose,Whole Blood 130 mg/dL (75-99)
[2017-08-10] MEDS: ALBUTEROL NEBULIZED 2.5 MG/3 ML INHALATION PRN (23:14)
[2017-08-11] MEDS: SODIUM CHLORIDE 0.9% 1,000 ML IV SCH ×3 (05:25→21:11)
[2017-08-11] MEDS: methylPREDNISolone SOD SUCCI 125 MG/2 ML VIAL IV SCH ×4 (05:57→23:14)
[2017-08-11 06:19] LABS: Glucose,Whole Blood 120 mg/dL (75-99)
[2017-08-11 06:23] LABS: Reticulocyte % 4.2 % (0.5-2.0)
[2017-08-11] MEDS: INSULIN ASPART 100 UNIT/ML 1 ML 10 ML VIAL SQ SCH ×4 (06:23→21:10)
[2017-08-11 06:27] LABS: Anion Gap 5 mmol/L; Blood Urea Nitrogen 23 mg/dL (7-17); Calcium 8.9 mg/dL (8.4-10.2); Carbon Dioxide 28 mmol/L (22-30); Chloride 111 mmol/L (98-107); Glucose 114 mg/dL (74-99); Potassium 4.1 mmol/L (3.5-5.1); Sodium 144 mmol/L (137-145)
[2017-08-11 06:41] LABS: INR 7.2 (<1.2)
[2017-08-11] MEDS ORDERED: PHYTONADIONE ORAL 5 MG/5 ML ORAL.SYRG PO STA (06:54)
[2017-08-11] MEDS: SENNOSIDES-DOCUSATE SODIUM 1 EACH TAB PO SCH ×2 (07:48→21:11)
[2017-08-11] MEDS: cefTRIAXone IN SWFI 1,000 MG/10 ML SYRINGE IVP SCH (07:48)
[2017-08-11] MEDS: PANTOPRAZOLE 40 MG/10 ML VIAL IVP SCH (07:48)
[2017-08-11] MEDS: ASPIRIN 300 MG SUPP RECTAL SCH (07:49)
[2017-08-11] MEDS: METOPROLOL TARTRATE 5 MG/5 ML VIAL IVP SCH ×2 (08:03→21:10)
[2017-08-11] MEDS: IPRATROPIUM-ALBUTEROL 3 ML NEB INHALATION SCH ×4 (08:22→21:33)
[2017-08-11] MEDS: SYMBICORT 160-4.5 MCG INHALER INHALATION SCH ×2 (08:22→21:31)
--- NOTE | 2017-08-11 09:53 | FL ---
EXAMINATION TYPE: FL barium swallow w video DATE OF EXAM: 08/11/2017 COMPARISON: NONE HISTORY: Silent aspiration TECHNIQUE: Fluoroscopy. FINDINGS: Fluoroscopic guidance was provided for the procedure performed in conjunction with the [facility] [place] pathology department. Please see complete report forthcoming from the Speech Pathology departmen t. Various consistencies from thin liquid to solids were administered. Fluoroscopy time 1.56 minutes. Number of images: 0. Aspiration was evident within liquids. Penetration occurred with additional consistencies. No significant pooling was observed in the vallecula. There was slight hesitation of propulsion. IMPRESSION: 1. Aspiration with thin liquids. This improved with chin tuck method. 2. Multiple episodes of penetration with multiple consistencies. This improved with chin tuck method.
--- NOTE | 2017-08-11 12:23 | CONS ---
CONSULTATION DATE OF SERVICE: 08/11/2017 REASON FOR CONSULTATION: Abnormal CT of the chest showing hiatal hernia and thickened esophagus. HISTORY OF PRESENT ILLNESS: The patient is a 76-year-old pleasant white female admitted to the hospital with shortness of breath, chronic cough, and apparently came to the emergency room and was noted to have severe hypoxia and was admitted to the hospital for further evaluation. She is currently being evaluated by Dr. Hamilton and on broad-spectrum antibiotics for possible pneumonia. She did have a CT of the chest done at the time of admission to the hospital, which showed a moderate-sized hiatal hernia with thickening of the distal esophagus, and hence direct endoscopy was recommended by the radiologist. Hence, we are consulted in regards to this issue. The patient presently denies any abdominal pain. She reports no nausea, vomiting. Denies any dysphagia or odynophagia. She was diagnosed with hiatal hernia many years ago and according to her had a hiatal hernia repair in 1985. She does get intermittent heartburn. She is maintained on omeprazole 20 mg daily for several years. She reports no recent weight loss. Her last upper endoscopy was about 3 or 4 years ago and according to the patient was within normal limits. PAST MEDICAL HISTORY: Her past medical history is significant for COPD, hypertension, GERD, hypercholesteremia. PAST SURGICAL HISTORY: Hiatal hernia repair in 1985, , cholecystectomy, tubal ligation, tonsillectomy. MEDICATIONS AT HOME: Metoprolol, Zyrtec, aspirin, Tylenol p.m., Senokot, Micardis, Prilosec, Norvasc, albuterol, Lasix, Coumadin, Ultram, ProAir. ALLERGIES: She has allergies to ASPIRIN, CODEINE, PENICILLIN, and SHELLFISH. SOCIAL HISTORY: No smoking. No alcohol use. FAMILY HISTORY: Unremarkable. REVIEW OF SYSTEMS: CARDIOPULMONARY: She does complain of shortness of breath. No chest pain. GENITOURINARY: No dysuria or hematuria. MUSCULOSKELETAL: Unremarkable. SKIN: Unremarkable. ENDOCRINE: Unremarkable. PSYCHIATRIC: Unremarkable. NEUROLOGY: Unremarkable. ENT/VISION: Unremarkable. HEMATOLOGY: Unremarkable. GI: As mentioned above. CONSTITUTIONAL: No recent weight loss. No fever, chills, night sweats. PHYSICAL EXAMINATION: On physical examination, she appears comfortable. No apparent distress. Vital signs are stable. Blood pressure is 132/86, pulse 85, temperature 97.9. HEENT EXAMINATION: Unremarkable. Conjunctivae pink. Sclerae anicteric. Oral cavity, no lesions. NECK: No JVD or lymph node enlargement. Chest was clear to auscultation. HEART: Regular rate and rhythm. ABDOMEN: Soft, nontender, nondistended. Liver and spleen are not palpable. Bowel sounds are positive. No organomegaly. EXTREMITIES: No pedal edema. SKIN: No rashes. NEURO: Alert and oriented x3. No focal deficits. LABS: Labs from yesterday, WBC 9.7, hemoglobin 9.1, platelets are normal. Basic metabolic panel is within normal limits. PT 66, INR 7.2. Hemoglobin is 9.1. IMPRESSION: 1. Exacerbation of chronic obstructive pulmonary disease. 2. Abnormal CT of the chest that showed a large hiatal hernia as well as thickening of the distal esophagus. Clinically, she does not have any symptoms, had gastroesophageal reflux disease for many years and has been maintained on Prilosec 20 mg daily and doing well. 3. Chronic cough, rule out aspiration pneumonia. Patient is scheduled for a modified barium swallow today at the bedside at 10 a.m. today. RECOMMENDATIONS: 1. Continue with Prilosec 20 mg daily. 2. Await modified barium swallow results from today. 3. If her respiratory status improves, we will consider proceeding with an upper endoscopy, but currently she is not very stable to undergo any endoscopic intervention/sedation for now. Plan was discussed with the patient. She is agreeable with that. We will follow her closely during her hospital stay. Thank you for this consultation. MMODL / IJN: [id number] /
[2017-08-11 12:27] LABS: INR 4.8 (<1.2); Prothrombin Time 43.7 sec (9.0-12.0)
[2017-08-11 12:30] LABS: Glucose,Whole Blood 179 mg/dL (75-99)
--- NOTE | 2017-08-11 15:47 | P.PN ---
Subjective Progress Note Date: 08/11/17 Principal diagnosis: Acute on chronic hypoxic respiratory failure secondary to acute exacerbation of COPD This is a 68-year-old female who is quite familiar to my service, I saw this patient until on her last admission for shortness of breath which was felt to be related to COPD and pneumonia involving the left lower lobe. Patient was treated and she was eventually discharged home. During her last admission, she was also worked up for pulmonary embolism, and the workup was negative. Patient had hip surgery, and she remains on anticoagulation therapy in the form of within which is therapeutic with INR of 2.5 today. Patient also describes intermittent episodes of cough, and she was noted to have low pulse oximetry before she came into the ER were and her pulse oximetry was in the 60s. Patient was placed on a nonrebreather, and as she was transferred to [facility] at [facility], she was placed on BiPAP, and ABG was done while on BiPAP. Her BiPAP settings were on the percent FiO2, IPAP of 12 and EPAP of 5. ABG on Zosyn in showed a pO2 of 220 pCO2 of 51 pH of 7.44. Hence the patient will be switched from BiPAP to a nasal cannula. Chest x-ray on this admission showed no evidence of active disease. Patient denies any headaches, no blurred vision no dizziness, no fever, no chills, no hemoptysis, no chest pain. No nausea no vomiting no abdominal pain, she was mostly complaining of shortness of breath. Patient was reevaluated today on 08/10/2017, she is presently on nasal cannula, high flow, doing much better compared to how she felt yesterday. I reviewed the CT of the chest, there is no evidence of pulmonary embolism. There is evidence of postinflammatory changes noted in the left lower lobe, and to some extent some areas of pneumonitis in the left upper lobe, could be residual from her last episode of pneumonia, or could be related to rule he to aspiration pneumonia since the patient is a high risk for aspiration, not to mention that the patient has a large hiatal hernia. Considering this, patient may have to have further GI evaluations, possibly a modified barium swallow, possibly even EGD. In the meantime continue antibiotics for possible aspiration pneumonia. Clinically I feel the findings are mostly postinflammatory from the recent extensive left sided pneumonia for which the patient was treated. These findings were not appreciated on the chest x-ray, but clearly seen on the CT of the chest which is more sensitive. On 08/11/2017 patient is doing well, her FiO2 is currently at 8 L per high flow nasal cannula with O2 sat at 96%. She remains afebrile since admission. Her vital signs are stable, hemodynamics are stable. Lung sounds are positive for some scattered rhonchi, she still has a congested cough. Able to expectorate some white-yellow sputum. Sputum cultures positive for Mariaelena albicans. Urine and blood cultures show no growth. She remains on antibiotics with Rocephin, Levaquin. Continues on Symbicort, continues on steroids 60 mg every 6 hours. Overall some modest improvement was noted. Objective - Vital Signs Vital signs: Vital Signs Temp 97.5 F L 08/11/17 15:24 Pulse 90 08/11/17 15:24 Resp 17 08/11/17 15:24 BP 113/63 08/11/17 15:24 Pulse Ox 96 08/11/17 15:24 Intake & Output 08/10/17 08/11/17 08/11/17 18:59 06:59 18:59 Intake Total 1190 1750 1780 Output Total 200 Balance 990 1750 1780 Weight 67.5 kg Intake: IV 950 1750 1200 Levofloxacin 750Mg-D5w 150 150 Pmx 750 mg In Dextrose/ Water 1 150ml.bag @ 100 mls/hr IVPB Q24H JASON Rx#: [id number] Sodium Chloride 0.9% 1, 800 1600 1200 000 ml @ 100 mls/hr IV . Q10H JASON Rx#:[id number] Oral 240 580 Output: Urine 200 Other: Voiding Method Bedpan # Voids 1 2 # Bowel Movements 0 0 - Exam GENERAL EXAM: Alert, fairly comfortable in no apparent distress. However the patient is on BiPAP at the time of my evaluation. HEAD: Normocephalic. EYES: Normal reaction of pupils, equal size. NOSE: Clear with pink turbinates. THROAT: No erythema or exudates. NECK: No masses, no JVD. CHEST: No chest wall deformity. LUNGS: Equal air entry, diminished at the bases, few rhonchi, congestive cough with production of white and yellow sputum CVS: S1 and S2 normal with no audible murmur, regular rhythm. ABDOMEN: No hepatosplenomegaly, normal bowel sounds, no guarding or rigidity. SPINE: No scoliosis or deformity SKIN: No rashes CENTRAL NERVOUS SYSTEM: No focal deficits, tone is normal in all 4 extremities. EXTREMITIES: There is no peripheral edema. No clubbing, no cyanosis. Peripheral pulses are intact. - Labs CBC & Chem 7: 08/10/17 13:30 08/11/17 05:49 Labs: Abnormal Lab Results - Last 24 Hours (Table) 08/10/17 08/10/17 08/10/17 Range/Units 13:30 16:49 20:56 Retic Count (0.5-2.0) % PT (9.0-12.0) sec INR (<1.2) Chloride (98-107) mmol/L BUN (7-17) mg/dL Glucose (74-99) mg/dL POC Glucose (mg/dL) 124 H 130 H (75-99) mg/dL Iron 39 L (50-170) ug/dL Ferritin 361.6 H (10.0-291.0) ng/mL 08/11/17 08/11/17 08/11/17 Range/Units 05:49 05:49 05:49 Retic Count 4.2 H (0.5-2.0) % PT 66.0 H (9.0-12.0) sec INR 7.2 H* (<1.2) Chloride 111 H (98-107) mmol/L BUN 23 H (7-17) mg/dL Glucose 114 H (74-99) mg/dL POC Glucose (mg/dL) (75-99) mg/dL Iron (50-170) ug/dL Ferritin (10.0-291.0) ng/mL 08/11/17 08/11/17 08/11/17 Range/Units 06:04 11:29 11:40 Retic Count (0.5-2.0) % PT 43.7 H (9.0-12.0) sec INR 4.8 H (<1.2) Chloride (98-107) mmol/L BUN (7-17) mg/dL Glucose (74-99) mg/dL POC Glucose (mg/dL) 120 H 179 H (75-99) mg/dL Iron (50-170) ug/dL Ferritin (10.0-291.0) ng/mL Microbiology - Last 24 Hours (Table) 08/09/17 12:15 Blood Culture - Preliminary Blood No Growth after 48 hours 08/10/17 12:30 Gram Stain - Preliminary Sputum Sputum Culture - Preliminary Mariaelena albicans 08/10/17 13:15 Throat Culture - Preliminary Throat 08/09/17 16:00 Urine Culture - Final Urine,Clean Catch Assessment and Plan Plan: Assessment: Impression: 1 acute on chronic hypoxic respiratory failure secondary to acute exacerbation of COPD. 2 recent history of left lower lobe pneumonia, healthcare acquired, resolved, and workup on her last admission for pulmonary embolism was negative. 3 history of left hip fracture requiring hemiarthroplasty, remains on Coumadin, and it is supratherapeutic at 4.8 on 08/11/2017. 4 history of hypertension 5 history of chronic ongoing tobacco dependence. 6 possible aspiration pneumonia, although the findings could be related to her recent episode of extensive pneumonia involving the left lung. That is the findings could be postinflammatory in nature. But the patient is truly a high risk for aspiration. And she has a large hiatal hernia noted on the CT of the chest. Patient may need to have further GI workup and modified barium swallow, possibly EGD to evaluate her large hiatal hernia Recommendation: Patient is doing well, continue weaning FiO2 to maintain O2 sat at 92%. Is currently down to 8 L per high flow nasal cannula with O2 sat at 96%. Continue antibiotics, continue bronchodilators continue steroids. Further recommendations to follow I performed a history & physical examination of the patient and discussed their management with my nurse practitioner, Candace Traylor. I reviewed the nurse practitioner's note and agree with the documented findings and plan of care. Lung sounds are positive for scattered rhonchi and congested cough. The findings and the impression was discussed with the patient. I attest to the documentation by the nurse practitioner. Time with Patient: Less than 30
[2017-08-11 17:12] LABS: Glucose,Whole Blood 196 mg/dL (75-99)
--- NOTE | 2017-08-11 17:24 | PN ---
PROGRESS NOTE She has ALLERGY to ASPIRIN, CODEINE; however, small dose aspirin 81 has not bothered her. She has allergy to CODEINE, INSECT VENOM, PENICILLIN and SHELLFISH. The patient has underlying history of coughing after eating, especially liquid and seen by the speech pathology and subsequently today we had to do fluoroscopic swallow study and that was the result of that. This is aspiration with thin liquid and improved with thick liquid and there are multiple episodes of penetration and with multiple consistency, improved with the chin-neck method. The patient seen also by Dr. Low regarding the CT scan result with the thickening in the GE junction and at this time she decided no further investigation because the patient did not have symptoms to her at this time and she will be following her as outpatient. In regard of her current status, she is much awake, alert, oriented. Her caregiver at bedside and her vital signs indicating that her temperature today 98.3 orally and her blood pressure 129/72, which is markedly improved with a mean pressure 91. She is on still high-flow oxygen with 13 L/minute and currently 97. On the laboratory, her retic count was increased with underlying pro-time ans INR was increased, the pro-time 66 and INR 7.2 and for that purpose the patient received vitamin K. Her electrolytes indicating sodium 144, potassium 4.1, chloride 111, carbon dioxide 28, anion gap is 5. Her BUN is 23 and creatinine 0.60 with the estimated glomerular filtration rate more than 60 and her blood sugar 114, covered with insulin to scale. Repeat PT and INR after giving the vitamin K orally down to 4.8, INR with a pro-time 43.7. EXAMINATION: The patient is conscious, alert, oriented. She now will be addressed Thick-it to be added to her meal as only to the liquid. Her oropharynx is normal. She has upper plate dentures. The neck was supple. The chest was increased anteroposterior diameter with underlying history of severe COPD and history of acute respiratory failure with hypoxemia and need for use of BiPAP. Currently she is off the BiPAP, but she had high- flow oxygen. Pulmonary following that as well. The heart was regular sinus and the abdomen was soft, positive bowel sounds and the extremities: No edema. She had a CT scan of the chest, which I did mention the result on it before and they did not find any PE, but they have thoughts of of the distal mainstem of the bronchi, has proximal left lower lobe bronchus and with the possibility of atelectasis or improved pneumonia and the patchy ground-glass posterior in the right base, lingula and posterior of the left upper lobe noted with the background of emphysema. She has also hiatal hernia moderate-size and as mentioned, seen by Dr. Low, as we requested to further evaluation, and she did not feel the patient needed any further investigation. On the assessment, the patient with the acute respiratory failure on high-flow oxygen with a history of probably the left lower lobe pneumonia is in resolving status, as the 1st chest x-ray was essentially negative, but the flow and the saturation were very low and she had in the 60s pulse ox. With the underlying minimal fluid for aspiration, the patient started on the Thick-it according to recommendation of the pathologist and chronic obstructive pulmonary disease. Still plan for the treatment with the hypotension. Also, which has been treated and so far no organism. We will continue the current treatment and we will repeat a chest x-ray tomorrow and for further evaluation depends on the patient's condition. MMODL / IJN: [id number] /
[2017-08-11] MEDS: LEVOFLOXACIN 750MG-D5W PMX 750 MG in DEXTROSE/WATER 1 150ML.BAG IVPB SCH (17:45)
[2017-08-11 20:53] LABS: Glucose,Whole Blood 219 mg/dL (75-99)
[2017-08-12] MEDS: ALBUTEROL NEBULIZED 2.5 MG/3 ML INHALATION PRN (04:08)
[2017-08-12] MEDS: methylPREDNISolone SOD SUCCI 125 MG/2 ML VIAL IV SCH ×4 (06:14→23:19)
[2017-08-12 06:22] LABS: Glucose,Whole Blood 178 mg/dL (75-99)
[2017-08-12] MEDS: INSULIN ASPART 100 UNIT/ML 1 ML 10 ML VIAL SQ SCH ×4 (06:31→21:37)
[2017-08-12 06:34] LABS: INR 1.3 (<1.2); Prothrombin Time 12.4 sec (9.0-12.0)
[2017-08-12] MEDS: IPRATROPIUM-ALBUTEROL 3 ML NEB INHALATION SCH ×4 (08:48→21:36)
[2017-08-12] MEDS: SYMBICORT 160-4.5 MCG INHALER INHALATION SCH (08:48)
[2017-08-12] MEDS: SENNOSIDES-DOCUSATE SODIUM 1 EACH TAB PO SCH ×2 (10:10→21:36)
[2017-08-12] MEDS: ASPIRIN 300 MG SUPP RECTAL SCH (10:10)
[2017-08-12] MEDS: PANTOPRAZOLE 40 MG/10 ML VIAL IVP SCH (10:10)
[2017-08-12] MEDS: METOPROLOL TARTRATE 5 MG/5 ML VIAL IVP SCH ×2 (10:17→21:37)
[2017-08-12] MEDS: SODIUM CHLORIDE 0.9% 1,000 ML IV SCH ×2 (10:40→17:33)
[2017-08-12 11:57] LABS: Glucose,Whole Blood 190 mg/dL (75-99)
[2017-08-12] MEDS: cefTRIAXone IN SWFI 1,000 MG/10 ML SYRINGE IVP SCH (12:09)
--- NOTE | 2017-08-12 12:31 | P.PN ---
Subjective Progress Note Date: 08/12/17 Principal diagnosis: Respiratory failure Progress note dated 08/12/2017 76-year-old female admitted with a diagnosis of hypoxemic respiratory failure. The patient has a history of underlying COPD and pneumonia. The patient's overall clinical status is improved slightly. She still has a wet congested cough. Doesn't take deep breaths. Still on high flow oxygen. The patient was admitted on August 09. She's feeling improved. Her improvement has been modest at best. We'll continue to watch very closely. Labs x-rays a medications are all reviewed. Objective - Vital Signs Vital signs: Vital Signs Temp 97.4 F L 08/12/17 12:00 Pulse 84 08/12/17 12:00 Resp 17 08/12/17 12:00 BP 139/91 08/12/17 12:00 Pulse Ox 96 08/12/17 12:00 Intake & Output 08/11/17 08/12/17 08/12/17 18:59 06:59 18:59 Intake Total 3156 774 2452 Output Total 100 Balance 7776 416 5811 Weight 67.5 kg Intake: IV 1200 800 500 Sodium Chloride 0.9% 1, 1200 800 500 000 ml @ 100 mls/hr IV . Q10H JASON Rx#:[id number] Oral 680 860 Output: Urine 100 Other: Voiding Method Bedside Commode Bedpan # Voids 2 # Bowel Movements 0 - Exam No acute distress, oriented 3. Mild conversational dyspnea HEENT examination is grossly unremarkable. Mucous membranes are moist. No oral lesions. Neck supple. Full range of motion. No adenopathy thyromegaly or neck vein distention. Cardiovascular examination reveals regular rhythm rate. S1-S2 normal. No S3 or S4. No discernible murmur noted. Lungs reveal diffuse bilateral rhonchi. Breath sounds are diminished. No wheezes. A few scattered crackles. Breath sounds are equal throughout. Abdomen soft bowel sounds are heard. No masses or tenderness. Extremities are intact. No cyanosis clubbing or edema. Skin is without rash or lesion. Neurologic examination is brief but nonfocal. - Labs CBC & Chem 7: 08/10/17 13:30 08/11/17 05:49 Labs: Abnormal Lab Results - Last 24 Hours (Table) 08/10/17 08/11/17 08/11/17 Range/Units 13:30 11:29 11:40 Pathologist Review See comment A PT 43.7 H (9.0-12.0) sec INR 4.8 H (<1.2) POC Glucose (mg/dL) 179 H (75-99) mg/dL 08/11/17 08/11/17 08/12/17 Range/Units 16:42 20:52 05:39 Pathologist Review PT 12.4 H (9.0-12.0) sec INR 1.3 H (<1.2) POC Glucose (mg/dL) 196 H 219 H (75-99) mg/dL 08/12/17 08/12/17 Range/Units 06:21 11:46 Pathologist Review PT (9.0-12.0) sec INR (<1.2) POC Glucose (mg/dL) 178 H 190 H (75-99) mg/dL Microbiology - Last 24 Hours (Table) 08/10/17 13:15 Throat Culture - Final Throat 08/10/17 12:30 Gram Stain - Final Sputum Sputum Culture - Final Mariaelena albicans 08/09/17 12:15 Blood Culture - Preliminary Blood No Growth after 48 hours Assessment and Plan (1) Acute exacerbation of chronic obstructive airways disease Current Visit: Yes Status: Acute Code(s): J44.1 - CHRONIC OBSTRUCTIVE PULMONARY DISEASE W (ACUTE) EXACERBATION SNOMED Code(s): 582490373 (2) Acute respiratory failure Current Visit: Yes Status: Acute Code(s): J96.00 - ACUTE RESPIRATORY FAILURE , UNSP W HYPOXIA OR HYPERCAPNIA SNOMED Code(s): 44538268 (3) COPD exacerbation Current Visit: Yes Status: Acute Code(s): J44.1 - CHRONIC OBSTRUCTIVE PULMONARY DISEASE W (ACUTE) EXACERBATION SNOMED Code(s): 703050568707435 (4) Hypoxemia Current Visit: Yes Status: Acute Code(s): R09.02 - HYPOXEMIA SNOMED Code(s ): 068034638 (5) Fracture of femoral neck, left Current Visit: No Status: Acute Code(s): S72.002A - FRACTURE OF UNSP PART OF NECK OF LEFT FEMUR, INIT SNOMED Code(s): 0647037 (6) Hypertension Current Visit: No Status: Acute Code(s): I10 - ESSENTIAL (PRIMARY) HYPERTENSION SNOMED Code(s): 12050672 (7) Pneumonia Current Visit: No Status: Acute Code(s): J18.9 - PNEUMONIA, UNSPECIFIED ORGANISM SNOMED Code(s): 923604068 (8) Sepsis Current Visit: No Status: Acute Code(s): A41.9 - SEPSIS, UNSPECIFIED ORGANISM SNOMED Code(s): 65831502 (9) Tobacco dependence Current Visit: No Status: Acute Code(s): F17.200 - NICOTINE DEPENDENCE, UNSPECIFIED, UNCOMPLICATED SNOMED Code(s): 18478355 Plan: Plan dated 08/12/2017 The patient's oxygen will continue to be weaned down. We'll review the medications. X-rays are reviewed. The patient's overall prognosis remains very guarded. She has show modest improvement. We'll continue to follow closely. Time with Patient: Less than 30
--- NOTE | 2017-08-12 13:14 | P.PN ---
Subjective Progress Note Date: 08/12/17 Principal diagnosis: This is a dictation on progress note patient seen and evaluated today on [address] Destiny Nation M.D., FACP. Patient seen today by Dr. Lane as well and he will be planning for bronchoscopy probably tomorrow. Patient appeared to be improving gradually but still have high flow of nasal O2. Her vital sign indicating temperature 97.4 and rhythm is 84 bpm and regular and her blood pressure 139/91. Her mean blood pressure 107. Today on the 08 12 her INR 1.3 and pro time is 12.4 Coumadin has been stopped as she could not be able to handle with the prolongation of the PT and INR. And will start her on heparin subcu for DVT prophylaxis. Patient is diabetic covered with insulin to scale her blood sugars fairly well controlled with the coverage with insulin spatially she is on a steroid. Pulmonary recommended continue with the steroid and antibiotic will be continued until bronchoscopy done as well as the testing followed that. Laboratory: White count is 9.7 on August 10 and her on hemoglobin 9.1 with the market hypochromasia and the reticulocyte count was mildly elevated will check stool for Hemoccult as well, and that could be associated with the Coumadin with the super therapeutic or more of toxic. Patient in bed conscious alert oriented 3 She able to eat her lunch with the use of [place] after evaluation with swallowing study and indicating minimal aspiration with Clomid only and the recommended Thick-It and neck maneuver. A chest is clear with the presence of left-sided rhonchi's and decrease air entry on the left side of the chest. The heart is regular sinus and the blood pressure improved significantly as she was admitted with hypotension. Abdomen is soft positive bowel sounds no tenderness in the 4 quadrants. Extremities no edema and positive pulses. Neurologically stable no lateralizing sign. Assessment: #1 patient admitted with acute hypoxemia with the saturation average of in the 60s situation. On the chronic respiratory failure. #2 left sided remanent of pneumonia or obstruction of the rhonchi's with the tracheobronchitis obstruction of pneumonia. #3 aspiration to liquid. #4 anemia of chronic disease and could be complexed with the Coumadin toxicity. Order Erick therapeutic level. #5 advanced COPD in for stage with the need of oxygen with the desaturation with ambulation below 88. #6 chronic degenerative osteoarthritis hyperlipidemia, hypertension with hypertensive heart disease currently stable and other chronic illness. #7 sputum Mariaelena albicans could be associated with the antibiotic, negative blood culture, throat culture normal adali, and urine culture was genital adali however patient had leukocytic elevation in the urine and the possibility of the UTI was considered. With the underlying presentation of hypotension and leukocytosis. Plan: #1 obtain stool for Hemoccult 2. #2 continue the antibiotic until the bronchoscopy done. #3 we'll order laboratory for tomorrow and start oral Diflucan 100 mg daily. For 4 days fill the results of the bronchoscopy available. Objective - Vital Signs Vital signs: Vital Signs Temp 97.4 F L 08/12/17 12:00 Pulse 84 08/12/17 12:00 Resp 17 08/12/17 12:00 BP 139/91 08/12/17 12:00 Pulse Ox 96 08/12/17 12:00 Intake & Output 08/11/17 08/12/17 08/12/17 18:59 06:59 18:59 Intake Total 7433 145 1247 Output Total 100 Balance 1658 006 2339 Weight 67.5 kg Intake: IV 1200 800 500 Sodium Chloride 0.9% 1, 1200 800 500 000 ml @ 100 mls/hr IV . Q10H JASON Rx#:[id number] Oral 680 860 Output: Urine 100 Other: Voiding Method Bedside Commode Bedpan # Voids 2 # Bowel Movements 0 - Labs CBC & Chem 7: 08/10/17 13:30 08/11/17 05:49 Labs: Abnormal Lab Results - Last 24 Hours (Table) 08/10/17 08/11/17 08/11/17 Range/Units 13:30 16:42 20:52 Pathologist Review See comment A PT (9.0-12.0) sec INR (<1.2) POC Glucose (mg/dL) 196 H 219 H (75-99) mg/dL 08/12/17 08/12/17 08/12/17 Range/Units 05:39 06:21 11:46 Pathologist Review PT 12.4 H (9.0-12.0) sec INR 1.3 H (<1.2) POC Glucose (mg/dL) 178 H 190 H (75-99) mg/dL Microbiology - Last 24 Hours (Table) 08/10/17 13:15 Throat Culture - Final Throat 08/10/17 12:30 Gram Stain - Final Sputum Sputum Culture - Final Mariaelena albicans 08/09/17 12:15 Blood Culture - Preliminary Blood No Growth after 48 hours
[2017-08-12] MEDS: HEPARIN SODIUM,PORCINE 5,000 UNIT/ML 1 ML VIAL SQ SCH ×2 (15:53→21:37)
[2017-08-12] MEDS: FLUCONAZOLE 100 MG TAB PO SCH (15:53)
[2017-08-12 17:07] LABS: Glucose,Whole Blood 281 mg/dL (75-99)
[2017-08-12 21:06] LABS: Glucose,Whole Blood 224 mg/dL (75-99)
[2017-08-12] MEDS: BUDESONIDE 1 MG/2 ML NEBU INHALATION SCH (21:36)
[2017-08-12] MEDS: FORMOTEROL FUMARATE 20 MCG/2 ML NEBU INHALATION SCH (21:36)
[2017-08-13] MEDS: ALBUTEROL NEBULIZED 2.5 MG/3 ML INHALATION PRN (05:29)
[2017-08-13 06:05] LABS: Glucose,Whole Blood 160 mg/dL (75-99)
[2017-08-13] MEDS: INSULIN ASPART 100 UNIT/ML 1 ML 10 ML VIAL SQ SCH ×4 (06:30→21:54)
[2017-08-13] MEDS: methylPREDNISolone SOD SUCCI 125 MG/2 ML VIAL IV SCH ×4 (06:30→23:42)
[2017-08-13 06:45] LABS: INR 1.1 (<1.2); Prothrombin Time 10.3 sec (9.0-12.0)
[2017-08-13] MEDS: FORMOTEROL FUMARATE 20 MCG/2 ML NEBU INHALATION SCH ×2 (07:41→20:26)
[2017-08-13] MEDS: IPRATROPIUM-ALBUTEROL 3 ML NEB INHALATION SCH ×4 (07:41→20:26)
[2017-08-13] MEDS: BUDESONIDE 1 MG/2 ML NEBU INHALATION SCH ×2 (07:41→20:26)
[2017-08-13] MEDS: PANTOPRAZOLE 40 MG/10 ML VIAL IVP SCH (08:36)
[2017-08-13] MEDS: METOPROLOL TARTRATE 5 MG/5 ML VIAL IVP SCH ×2 (08:40→21:40)
[2017-08-13] MEDS: cefTRIAXone IN SWFI 1,000 MG/10 ML SYRINGE IVP SCH (08:40)
[2017-08-13] MEDS: HEPARIN SODIUM,PORCINE 5,000 UNIT/ML 1 ML VIAL SQ SCH ×2 (08:41→21:42)
[2017-08-13] MEDS: ASPIRIN 300 MG SUPP RECTAL SCH (08:41)
[2017-08-13] MEDS: SODIUM CHLORIDE 0.9% 1,000 ML IV SCH ×3 (08:41→23:46)
[2017-08-13] MEDS ORDERED: PROPOFOL 10 MG/ML 20 ML VIAL IV ONE (10:38)
[2017-08-13] MEDS ORDERED: LIDOCAINE 1% INJ 10MG/ML (20 ML MDV) ONE (10:38)
[2017-08-13] MEDS ORDERED: IV FLUID CONTINUATION 1,000 ML IV ONE (10:39)
--- NOTE | 2017-08-13 10:40 | P.PN ---
Subjective Progress Note Date: 08/13/17 Principal diagnosis: Acute exacerbation of chronic obstructive pulmonary disease This is a 68-year-old female who is quite familiar to my service, I saw this patient until on her last admission for shortness of breath which was felt to be related to COPD and pneumonia involving the left lower lobe. Patient was treated and she was eventually discharged home. During her last admission, she was also worked up for pulmonary embolism, and the workup was negative. Patient had hip surgery, and she remains on anticoagulation therapy in the form of within which is therapeutic with INR of 2.5 today. Patient also describes intermittent episodes of cough, and she was noted to have low pulse oximetry before she came into the ER were and her pulse oximetry was in the 60s. Patient was placed on a nonrebreather, and as she [facility] she was placed on BiPAP, and ABG was done while on BiPAP. Her BiPAP settings were on the percent FiO2, IPAP of 12 and EPAP of 5. ABG on Zosyn in showed a pO2 of 220 pCO2 of 51 pH of 7.44. Hence the patient will be switched from BiPAP to a nasal cannula. Chest x-ray on this admission showed no evidence of active disease. Patient denies any headaches, no blurred vision no dizziness, no fever, no chills, no hemoptysis, no chest pain. No nausea no vomiting no abdominal pain, she was mostly complaining of shortness of breath. Patient was reevaluated today on 08/10/2017, she is presently on nasal cannula, high flow, doing much better compared to how she felt yesterday. I reviewed the CT of the chest, there is no evidence of pulmonary embolism. There is evidence of postinflammatory changes noted in the left lower lobe, and to some extent some areas of pneumonitis in the left upper lobe, could be residual from her last episode of pneumonia, or could be related to rule he to aspiration pneumonia since the patient is a high risk for aspiration, not to mention that the patient has a large hiatal hernia. Considering this, patient may have to have further GI evaluations, possibly a modified barium swallow, possibly even EGD. In the meantime continue antibiotics for possible aspiration pneumonia. Clinically I feel the findings are mostly postinflammatory from the recent extensive left sided pneumonia for which the patient was treated. These findings were not appreciated on the chest x-ray, but clearly seen on the CT of the chest which is more sensitive. On 08/11/2017 patient is doing well, her FiO2 is currently at 8 L per high flow nasal cannula with O2 sat at 96%. She remains afebrile since admission. Her vital signs are stable, hemodynamics are stable. Lung sounds are positive for some scattered rhonchi, she still has a congested cough. Able to expectorate some white-yellow sputum. Sputum cultures positive for Mariaelena albicans. Urine and blood cultures show no growth. She remains on antibiotics with Rocephin, Levaquin. Continues on Symbicort, continues on steroids 60 mg every 6 hours. Overall some modest improvement was noted. Progress note dated 08/12/2017 76-year-old female admitted with a diagnosis of hypoxemic respiratory failure. The patient has a history of underlying COPD and pneumonia. The patient's overall clinical status is improved slightly. She still has a wet congested cough. Doesn't take deep breaths. Still on high flow oxygen. The patient was admitted on August 09. She's feeling improved. Her improvement has been modest at best. We'll continue to watch very closely. Labs x-rays a medications are all reviewed. On 08/13/2017 the patient is seen again today in follow-up on the selective care unit. She is awake and alert in no acute distress. She continues with a loose nonproductive cough. Sputum culture revealed evidence of Mariaelena otherwise no growth. Blood cultures reveal no growth. Throat cultures no growth. She continues to require 10 L high flow nasal cannula to maintain O2 saturations in the 90s. She is afebrile. Hemodynamically stable. The plan is for bronchoscopy with BAL with Dr. Lane today. Objective - Vital Signs Vital signs: Vital Signs Temp 97.0 F L 08/13/17 04:00 Pulse 90 08/13/17 08:02 Resp 22 08/13/17 08:00 BP 149/69 08/13/17 08:00 Pulse Ox 93 L 08/13/17 08:00 Intake & Output 08/12/17 08/13/17 08/13/17 18:59 06:59 18:59 Intake Total 1760 800 Output Total 300 300 200 Balance 1460 500 -200 Weight 71.2 kg Intake: IV 500 800 Sodium Chloride 0.9% 1, 500 800 000 ml @ 100 mls/hr IV . Q10H [facility] Rx#:[id number] Oral 1260 Output: Urine 300 300 200 Other: Voiding Method Bedside Commode Bedpan # Voids 1 2 # Bowel Movements 1 - Exam GENERAL EXAM: Alert, fairly comfortable in no apparent distress. However the patient is on BiPAP at the time of my evaluation. HEAD: Normocephalic. EYES: Normal reaction of pupils, equal size. NOSE: Clear with pink turbinates. THROAT: No erythema or exudates. NECK: No masses, no JVD. CHEST: No chest wall deformity. LUNGS: Equal air entry, diminished at the bases, few rhonchi, congestive cough with production of white and yellow sputum CVS: S1 and S2 normal with no audible murmur, regular rhythm. ABDOMEN: No hepatosplenomegaly, normal bowel sounds, no guarding or rigidity. SPINE: No scoliosis or deformity SKIN: No rashes CENTRAL NERVOUS SYSTEM: No focal deficits, tone is normal in all 4 extremities. EXTREMITIES: There is no peripheral edema. No clubbing, no cyanosis. Peripheral pulses are intact. - Labs CBC & Chem 7: 08/10/17 13:30 08/11/17 05:49 Labs: Abnormal Lab Results - Last 24 Hours (Table) 08/12/17 08/12/17 08/12/17 Range/Units 11:46 16:45 21:04 POC Glucose (mg/dL) 190 H 281 H 224 H (75-99) mg/dL 08/13/17 Range/Units 06:04 POC Glucose (mg/dL) 160 H (75-99) mg/dL Microbiology - Last 24 Hours (Table) 08/09/17 12:15 Blood Culture - Preliminary Blood No Growth after 72 hours 08/10/17 13:15 Throat Culture - Final Throat 08/10/17 12:30 Gram Stain - Final Sputum Sputum Culture - Final Mariaelena albicans Assessment and Plan Assessment: Impression: 1 acute on chronic hypoxic respiratory failure secondary to acute exacerbation of COPD. 2 recent history of left lower lobe pneumonia, healthcare acquired, resolved, and workup on her last admission for pulmonary embolism was negative. 3 history of left hip fracture requiring hemiarthroplasty, remains on Coumadin, and it is supratherapeutic at 4.8 on 08/11/2017. 4 history of hypertension 5 history of chronic ongoing tobacco dependence. 6 possible aspiration pneumonia, although the findings could be related to her recent episode of extensive pneumonia involving the left lung. That is the findings could be postinflammatory in nature. But the patient is truly a high risk for aspiration. And she has a large hiatal hernia noted on the CT of the chest. Patient may need to have further GI workup and modified barium swallow, possibly EGD to evaluate her large hiatal hernia Recommendation: The patient was seen and evaluated by Dr. Lane. The plan is for bronchoscopy with BAL today. We'll continue with her current medications for now. We will continue to titrate down her FiO2 as tolerated. We'll continue to follow. I, the cosigning physician, have performed a history and physical examination on the patient. Lung sounds have bilateral scattered rhonchi more so on the left lung base.. Maintaining good O2 saturations in the 10 L high flow nasal cannula. I have discussed the assessment and plan of care with my nurse practitioner, Tisha Carpenter. I attest the above documented note as dictated by her.
[2017-08-13] MEDS ORDERED: LIDOCAINE 2% INJ 20 MG/ML INTRATRACH ONE (10:49)
--- NOTE | 2017-08-13 12:05 | PCN ---
PROCEDURE NOTE PROCEDURE: Bronchoscopy, airway examination, therapeutic lavage, BAL left lower lobe. PREOPERATIVE DIAGNOSIS: Left lower lobe pneumonia. POSTOPERATIVE DIAGNOSIS: Left lower lobe pneumonia. PROCEDURE: QUANTITATIVE ANALYST provided general anesthesia and unconscious sedation. The patient's procedure was done in room #1. There was informed consent. There was universal timeout. After the patient was adequately sedated and being fully monitored, the bronchoscope was placed through the right nostril. It passed through the right nasopharynx into the oropharynx. The hypopharynx was identified. There was some dried blood noted in the hypopharynx. Anterior commissure, true cords, false cords arytenoids, piriform sinuses, right and left vallecula all appeared otherwise normal. After topicalization, bronchoscope was pushed through glottic opening into the trachea. Trachea appeared relatively normal. There was some thin filmy secretions noted throughout the trachea. Nothing that looked purulent. Trachea nery was sharp. Right upper lobe and its 3 segments, right middle lobe and its 2 segments, right lower lobe and its 5 segments, left upper lobe and its 2 segments, the lingula and its 2 segments and the left lower lobe and its 4 segments, all had similar findings of mild bronchitis. There were some foamy secretions noted throughout. There was also what appeared to be some dried blood throughout the airways. There was no purulence. No mass or tumor. The bronchoscope was wedged into the left lower lobe. We did BAL. The patient tolerated the procedure well. Samples will be sent for evaluation. The patient will be recovered. MMODL / IJN: [id number] /
[2017-08-13 12:14] LABS: Glucose,Whole Blood 177 mg/dL (75-99)
[2017-08-13] MEDS: FLUCONAZOLE 100 MG TAB PO SCH (12:20)
[2017-08-13] MEDS: SENNOSIDES-DOCUSATE SODIUM 1 EACH TAB PO SCH ×2 (12:20→22:38)
[2017-08-13 14:03] LABS: Appearance,BF Cloudy; Color,BF Brown; Nucleated Cells, Body Fluid 780 /uL; RBC, Body Fluid 140 /uL
[2017-08-13 14:12] LABS: Mononuclear WBC,Body Fluid 66 %; Polynuclear WBC,Body Fluid 34 %; Total Cells Counted,Body Fluid 100
[2017-08-13 16:54] LABS: Glucose,Whole Blood 144 mg/dL (75-99)
--- NOTE | 2017-08-13 18:59 | P.PN ---
Subjective Progress Note Date: 08/13/17 Principal diagnosis: Dictation on the progress note date of service 08/13/[address]ElSafy Cameron [facility]. Patient seen and evaluated today and she was taken to bronchoscopy by Dr. Casey today on August 13 with the bronchial wash result is pending. Vital sign indicating 96.9 pulse rate is 106 respiratory rate 18 and nonlabored her blood pressure improved 149/82 with a mean blood pressure 104 her pulse ox is 91 which is lower on 10 L and we will see if the bronchoscopy also will be improving her future titration for the high flow oxygen with the underlying stage IV of COPD. However so far the blood pressure is improved at this time and we will be if continue to be elevated will start back her home medication. She is still on the antibiotic and Levaquin has been discontinued but the Rocephin has been still on until we see the lab tomorrow as we order the CBC with differential as well has the BNP. On the physical examination today face- to-face. Her HEENT was negative neck was supple chest was clear on the upper lung field is still decreased air entry in the lower lung field and the heart was regular sinus rhythm and the abdomen was soft positive bowel sounds and extremities no edema. We did stop the Coumadin and currently on heparin subcu every 12 hours 5000 as well as the state her previous medications nausea aspirin 81 that she has been tolerated and we hope that they removed from the ALLERGY of aspirin because patient has been taking aspirin at home with no problem. Her Lost laboratory was done on August 10 and her white count was 9.7 with hemoglobin 9.1 and a hematocrit 30.3 and we did the peripheral dyspnea the peripheral smear was done and read by the pathologist and could not differentiate between anemia of chronic disease versus iron deficiency anemia and that she had some reactive neutrophilia. We will be obtaining the CBC with differential tomorrow. On the Examination HEENT was negative as mentioned the pupil is equal reactive the oropharynx is negative no difficulty of swallowing has been [place] as she had aspiration to aspiration to 2 liquid. The and patient has currently able to eat her lunch and solid food Her chest was upper lung field is created the lower lung field is still diminished air entry with the high flow oxygen and waiting for the results of the bronchoscopy the. Heart the regular sinus rhythm and the abdomen was soft nontender positive bowel sounds and extremities no edema and positive pulses. Assessment #1 underlying acute hypoxemia and chronic respiratory failure associated with 60 acute respiratory failure on admission. #2 history of left lung pneumonia and the high flow oxygen with the hypoxemia. #3 status post bronchoscopy waiting for the results. #4 on a steroid and hyperglycemia with covered with insulin. #5 anemia of chronic disease and iron deficiency. #6 history of super level of PT INR and INR secondary to the Coumadin therapy that she could not be tolerated which was given to her because of history of left lower extremities DVT. Plan: The #1 continue the current treatment including the Rocephin as well as waiting for the results of the bronchoscopy and the bronchial lavage, #2 #2 high flow oxygen with the underlying COPD and the future plan at home. #3 underlying use of the steroid and then need for discontinuation will be discussed with the pulmonary to see what their opinion in that regard. Objective - Vital Signs Vital signs: Vital Signs Temp 96.9 F L 08/13/17 16:00 Pulse 88 08/13/17 16:22 Resp 18 08/13/17 16:00 BP 149/82 08/13/17 16:00 Pulse Ox 91 L 08/13/17 16:00 Intake & Output 08/12/17 08/13/17 08/13/17 18:59 06:59 18:59 Intake Total 1760 800 510 Output Total 300 300 600 Balance 1460 500 -90 Weight 71.2 kg Intake: IV 500 800 300 Sodium Chloride 0.9% 1, 500 800 000 ml @ 100 mls/hr IV . Q10H [facility] Rx#:[id number] Oral 1260 210 Output: Urine 300 300 600 Other: Voiding Method Bedside Commode Bedside Commode Bedpan Bedpan # Voids 1 2 0 # Bowel Movements 0 - Labs CBC & Chem 7: 08/10/17 13:30 08/11/17 05:49 Labs: Abnormal Lab Results - Last 24 Hours (Table) 08/12/17 08/13/17 08/13/17 Range/Units 21:04 06:04 12:10 POC Glucose (mg/dL) 224 H 160 H 177 H (75-99) mg/dL 08/13/17 Range/Units 16:41 POC Glucose (mg/dL) 144 H (75-99) mg/dL Microbiology - Last 24 Hours (Table) 08/09/17 12:15 Blood Culture - Preliminary Blood No Growth after 96 hours
[2017-08-13 21:21] LABS: Glucose,Whole Blood 177 mg/dL (75-99)
[2017-08-14] MEDS: ALBUTEROL NEBULIZED 2.5 MG/3 ML INHALATION PRN ×2 (03:02→23:38)
[2017-08-14 06:12] LABS: Glucose,Whole Blood 179 mg/dL (75-99)
[2017-08-14] MEDS: methylPREDNISolone SOD SUCCI 125 MG/2 ML VIAL IV SCH ×2 (06:26→11:47)
[2017-08-14] MEDS: SODIUM CHLORIDE 0.9% 1,000 ML IV SCH (06:27)
[2017-08-14 07:16] LABS: INR 1.1 (<1.2); Prothrombin Time 10.5 sec (9.0-12.0)
[2017-08-14 07:22] LABS: Anisocytosis Slight; Basophils % (A) 0 %; Eosinophils % (A) 0 %; HCT 31.4 % (34.0-46.0); HGB 9.4 gm/dL (11.4-16.0); Hypochromasia Moderate; Lymphocytes # (A) 0.2 k/uL (1.0-4.8); Lymphocytes % (A) 2 %; MCH 28.3 pg (25.0-35.0); MCV 94.6 fL (80.0-100.0); Mean Platelet Volume 7.7; Monocytes # (A) 0.2 k/uL (0-1.0); Monocytes % (A) 2 %; Neutrophils # (A) 8.8 k/uL (1.3-7.7); Neutrophils % (A) 95 %; Platelet Count 234 k/uL (150-450); RBC 3.32 m/uL (3.80-5.40); RDW 16.9 % (11.5-15.5); WBC 9.3 k/uL (3.8-10.6)
[2017-08-14 07:35] LABS: Anion Gap 4 mmol/L; Blood Urea Nitrogen 11 mg/dL (7-17); Calcium 8.5 mg/dL (8.4-10.2); Carbon Dioxide 33 mmol/L (22-30); Chloride 107 mmol/L (98-107); Glucose 164 mg/dL (74-99); Sodium 144 mmol/L (137-145)
[2017-08-14] MEDS: INSULIN ASPART 100 UNIT/ML 1 ML 10 ML VIAL SQ SCH ×4 (08:09→23:10)
[2017-08-14] MEDS: ASPIRIN 81 MG PO SCH (08:09)
[2017-08-14] MEDS: PANTOPRAZOLE 40 MG/10 ML VIAL IVP SCH (08:10)
[2017-08-14] MEDS: FLUCONAZOLE 100 MG TAB PO SCH (08:10)
[2017-08-14] MEDS: HEPARIN SODIUM,PORCINE 5,000 UNIT/ML 1 ML VIAL SQ SCH ×2 (08:10→22:36)
[2017-08-14] MEDS: SENNOSIDES-DOCUSATE SODIUM 1 EACH TAB PO SCH ×2 (08:10→22:42)
[2017-08-14] MEDS ORDERED: Potassium Replacement Protocol 1 EACH MISC MISCELLANE PRN ×2 (08:27→17:16)
[2017-08-14] MEDS: METOPROLOL TARTRATE 5 MG/5 ML VIAL IVP SCH ×2 (08:48→22:41)
[2017-08-14] MEDS: POTASSIUM CHLORIDE 10 MEQ, LIDOCAINE 2% INJ 10 MG in SODIUM CHLORIDE 0.9% 100 ML IV SCH ×5 (08:48→21:17)
[2017-08-14] MEDS: cefTRIAXone IN SWFI 1,000 MG/10 ML SYRINGE IVP SCH (08:48)
[2017-08-14] MEDS: IPRATROPIUM-ALBUTEROL 3 ML NEB INHALATION SCH ×4 (08:56→20:12)
[2017-08-14] MEDS: FORMOTEROL FUMARATE 20 MCG/2 ML NEBU INHALATION SCH ×2 (08:56→20:12)
[2017-08-14] MEDS: BUDESONIDE 1 MG/2 ML NEBU INHALATION SCH ×2 (08:56→20:12)
--- NOTE | 2017-08-14 11:28 | P.PN ---
Subjective Progress Note Date: 08/14/17 Principal diagnosis: Respiratory failure Progress note dated 08/12/2017 76-year-old female admitted with a diagnosis of hypoxemic respiratory failure. The patient has a history of underlying COPD and pneumonia. The patient's overall clinical status is improved slightly. She still has a wet congested cough. Doesn't take deep breaths. Still on high flow oxygen. The patient was admitted on August 09. She's feeling improved. Her improvement has been modest at best. We'll continue to watch very closely. Labs x-rays a medications are all reviewed. Progress note dated 08/14/2017 76-year-old female with history of persistent ongoing hypoxia make respiratory failure. Her car is high flow oxygen therapy. Spends much of her time on either BiPAP or the high flow oxygen device. The patient does have history of underlying COPD and pneumonia. She has been evaluated for pulmonary most him without was negative. The patient underwent bronchoscopy yesterday. She has scanty secretions. There were somewhat bloody. The blood was old. Otherwise not much purulence. I don't know how much it helped. The BAL was done. Also for culture results are negative. They are pending though. They are For up to 8 weeks. The patient feels better once ago home but obviously cannot go home on the amount of oxygen that she's currently requiring. We'll have to watch her closely. X-rays are reviewed. Objective - Vital Signs Vital signs: Vital Signs Temp 98.7 F 08/14/17 08:00 Pulse 100 08/14/17 09:14 Resp 20 08/14/17 08:00 BP 161/86 08/14/17 08:00 Pulse Ox 94 L 08/14/17 08:00 Intake & Output 08/13/17 08/14/17 08/14/17 18:59 06:59 18:59 Intake Total 510 1418 Output Total 600 800 Balance -90 -800 1418 Weight 73.2 kg Intake: IV 300 1100 Sodium Chloride 0.9% 1, 1100 000 ml @ 100 mls/hr IV . Q10H [facility] Rx#:[id number] Oral 210 318 Output: Urine 600 800 Other: Voiding Method Bedside Commode Bedside Commode Bedpan Bedpan # Voids 0 2 8 # Bowel Movements 0 - Exam No acute distress, oriented 3. Mild conversational dyspnea HEENT examination is grossly unremarkable. Mucous membranes are moist. No oral lesions. Neck supple. Full range of motion. No adenopathy thyromegaly or neck vein distention. Cardiovascular examination reveals regular rhythm rate. S1-S2 normal. No S3 or S4. No discernible murmur noted. Lungs reveal diffuse bilateral rhonchi. Breath sounds are diminished. No wheezes. A few scattered crackles. Breath sounds are equal throughout. Abdomen soft bowel sounds are heard. No masses or tenderness. Extremities are intact. No cyanosis clubbing or edema. Skin is without rash or lesion. Neurologic examination is brief but nonfocal. - Labs CBC & Chem 7: 08/14/17 06:21 08/14/17 06:21 Labs: Abnormal Lab Results - Last 24 Hours (Table) 08/13/17 08/13/17 08/13/17 Range/Units 12:10 16:41 21:19 RBC (3.80-5.40) m/uL Hgb (11.4-16.0) gm/dL Hct (34.0-46.0) % MCHC (31.0-37.0) g/dL RDW (11.5-15.5) % Neutrophils # (1.3-7.7) k/uL Lymphocytes # (1.0-4.8) k/uL Potassium (3.5-5.1) mmol/L Carbon Dioxide (22-30) mmol/L Glucose (74-99) mg/dL POC Glucose (mg/dL) 177 H 144 H 177 H (75-99) mg/dL 08/14/17 08/14/17 08/14/17 Range/Units 06:10 06:21 06:21 RBC 3.32 L (3.80-5.40) m/uL Hgb 9.4 L (11.4-16.0) gm/dL Hct 31.4 L (34.0-46.0) % MCHC 30.0 L (31.0-37.0) g/dL RDW 16.9 H (11.5-15.5) % Neutrophils # 8.8 H (1.3-7.7) k/uL Lymphocytes # 0.2 L (1.0-4.8) k/uL Potassium 3.0 L* (3.5-5.1) mmol/L Carbon Dioxide 33 H (22-30) mmol/L Glucose 164 H (74-99) mg/dL POC Glucose (mg/dL) 179 H (75-99) mg/dL Microbiology - Last 24 Hours (Table) 08/13/17 11:00 Gram Stain - Preliminary Bronchial Washings - Left Bronchial Washings Culture - Preliminary 08/13/17 11:00 Acid Fast Bacilli Smear - Final Bronchial Washings - Left Acid Fast Bacilli Culture - Preliminary 08/13/17 11:00 Fungal Culture - Preliminary Bronchial Washings - Left 08/09/17 12:15 Blood Culture - Preliminary Blood No Growth after 96 hours Assessment and Plan (1) Acute exacerbation of chronic obstructive airways disease Current Visit: Yes Status: Acute Code(s): J44.1 - CHRONIC OBSTRUCTIVE PULMONARY DISEASE W (ACUTE) EXACERBATION SNOMED Code(s): 224631510 (2) Acute respiratory failure Current Visit: Yes Status: Acute Code(s): J96.00 - ACUTE RESPIRATORY FAILURE , UNSP W HYPOXIA OR HYPERCAPNIA SNOMED Code(s): 81558122 (3) COPD exacerbation Current Visit: Yes Status: Acute Code(s): J44.1 - CHRONIC OBSTRUCTIVE PULMONARY DISEASE W (ACUTE) EXACERBATION SNOMED Code(s): 204232390170040 (4) Hypoxemia Current Visit: Yes Status: Acute Code(s): R09.02 - HYPOXEMIA SNOMED Code(s ): 877515811 (5) Fracture of femoral neck, left Current Visit: No Status: Acute Code(s): S72.002A - FRACTURE OF UNSP PART OF NECK OF LEFT FEMUR, INIT SNOMED Code(s): 2475074 (6) Hypertension Current Visit: No Status: Acute Code(s): I10 - ESSENTIAL (PRIMARY) HYPERTENSION SNOMED Code(s): 87768986 (7) Pneumonia Current Visit: No Status: Acute Code(s): J18.9 - PNEUMONIA, UNSPECIFIED ORGANISM SNOMED Code(s): 280295628 (8) Sepsis Current Visit: No Status: Acute Code(s): A41.9 - SEPSIS, UNSPECIFIED ORGANISM SNOMED Code(s): 21238831 (9) Tobacco dependence Current Visit: No Status: Acute Code(s): F17.200 - NICOTINE DEPENDENCE, UNSPECIFIED, UNCOMPLICATED SNOMED Code(s): 95090999 Plan: Plan dated 08/12/2017 The patient's oxygen will continue to be weaned down. We'll review the medications. X-rays are reviewed. The patient's overall prognosis remains very guarded. She has show modest improvement. We'll continue to follow closely. Plan dated 08/13/2017 The patient's labs x-rays a medications are reviewed. The patient's culture data will be reviewed as well. We'll also review her updrafts in her antibiotics. Prognosis is very poor given the fact that she's not been able to be weaned down significantly from her oxygen requirements. She causes might be a consideration. We'll continue to follow. Additional recommendations and suggestions are forthcoming. Time with Patient: Less than 30
[2017-08-14 11:30] LABS: Glucose,Whole Blood 158 mg/dL (75-99)
--- NOTE | 2017-08-14 15:03 | XR ---
EXAMINATION TYPE: XR chest 1V portable DATE OF EXAM: 08/14/2017 CLINICAL HISTORY: Difficulty breathing progress study. Shortness of breath with productive cough and congestion. TECHNIQUE: Single AP portable upright view of the chest is obtained. COMPARISON: Chest x-ray and CTA chest from 5 days earlier FINDINGS: Cardiac silhouette size is stable and mildly enlarged with central vascular congestion. Th ere is underlying chronic emphysematous change with small bilateral pleural effusions now felt presen t. There is new patchy bibasilar atelectasis and/or infiltrate. Retrocardiac opacity consistent with moderate size hiatal hernia is redemonstrated. Osseous structures are demineralized. IMPRESSION: Suspect developing CHF exacerbation fluid overload state as there is new small bilateral pleural effusions and mild central vascular congestion felt present.
[2017-08-14 16:56] LABS: Glucose,Whole Blood 174 mg/dL (75-99)
[2017-08-14] MEDS: methylPREDNISolone SOD SUCCI 40 MG/ML 1 ML VIAL IV SCH (18:01)
[2017-08-14 19:06] LABS: Anion Gap 4 mmol/L; Blood Urea Nitrogen 13 mg/dL (7-17); Calcium 8.8 mg/dL (8.4-10.2); Carbon Dioxide 33 mmol/L (22-30); Chloride 106 mmol/L (98-107); Glucose 187 mg/dL (74-99); Potassium 3.2 mmol/L (3.5-5.1); Sodium 143 mmol/L (137-145)
--- NOTE | 2017-08-14 19:11 | P.PN ---
Subjective Progress Note Date: 08/14/17 #5 hyperglycemia This dictation on progress note date of service 08/14/2017. Dictated by Dr. Rios Cameron [facility]. Patient seen and evaluated today and discussed with her current planning, she still weaning her off the oxygen gradually as she still on high flow oxygen 10 L /m. Dr. Lane pulmonary and critical has been following the patient closely. And he ordered a chest x-ray today and the impression that they suspect developing of congestive heart failure exacerbation and fluid overload which is a new small bilateral pleural effusion and mild central vascular congestion. I did discontinue IV fluids and to be hep well, and that patient already receiving Lasix and hopefully that will be corrected. Her vital sign indicating that blood pressure 156/83 which is markedly improvement from the time she arrived with hypotension her mean arterial pressure is 107 her pulse ox saturation was 98 but [place] later of oxygen her heart rate still have some tachycardia but sinus with a temperature 98.2 orally. She has a bilateral rhonchi and crackles. On the physical examination her culture found that she has from the bronchial washing done on 08/13/2017 that she has yeast species and found that Mariaelena albicans. Blood culture was no growth. Probably we will be starting her on Diflucan 100 mg once daily. Her white count is 9.3 with a hemoglobin 9.4 and hematocrit 31.4 with the underlying anemia her MCV 94.6 and she has moderate hypochromasia and a niece who cytosis slight. Today she have lab in the morning found the potassium is 2.8 supplemented per protocol. Her blood sugar has been controlled with insulin to scale due to the hyperglycemia of a steroid her BMP was 2270 with probably the volume over load. On examination: Patient still need high flow oxygen 10 m/m her HEENT was negative no cyanosis. Neck was supple no JVD trachea midline. Chest rhonchi's bilaterally and left lung decreased air entry with dullness on percussion. The heart is regular sinus no evidence of gallop. The abdomen: Soft nontender positive bowel sounds. Extremities no edema. Assessment: Advanced stage of COPD stage IV with severe hypoxemia and the high flow oxygen. #2 underlying history of left lower lobe pneumonia resolving #3 underlying sputum positive for Mariaelena albicans. #4 elevated BP and PE with a normal systolic function associated with diastolic congestive heart failure considered. #5 hyperglycemia secondary to steroid as recommended by pulmonary. Anemia mixed picture and will continue the iron supplementation. Plan: #1 physical therapy #2 continuing the oxygen and titration and weaning by Dr. Lane, #3 supple mentation of the electrolytes and the potassium. #4 discontinue IV fluid and continue his hep well. Objective - Vital Signs Vital signs: Vital Signs Temp 98.2 F 08/14/17 16:00 Pulse 107 H 08/14/17 16:00 Resp 16 08/14/17 16:00 BP 156/83 08/14/17 16:00 Pulse Ox 98 08/14/17 16:00 Intake & Output 08/13/17 08/14/17 08/14/17 18:59 06:59 18:59 Intake Total 510 1654 Output Total 600 800 Balance -90 -800 1654 Weight 73.2 kg 73.2 kg Intake: IV 300 1100 Sodium Chloride 0.9% 1, 1100 000 ml @ 100 mls/hr IV . Q10H JASON Rx#:[id number] Oral 210 554 Output: Urine 600 800 Other: Voiding Method Bedside Commode Bedside Commode Bedpan Bedpan # Voids 0 2 8 # Bowel Movements 0 - Labs CBC & Chem 7: 08/14/17 06:21 08/14/17 15:34 Labs: Abnormal Lab Results - Last 24 Hours (Table) 08/13/17 08/14/17 08/14/17 Range/Units 21:19 06:10 06:21 RBC 3.32 L (3.80-5.40) m/uL Hgb 9.4 L (11.4-16.0) gm/dL Hct 31.4 L (34.0-46.0) % MCHC 30.0 L (31.0-37.0) g/dL RDW 16.9 H (11.5-15.5) % Neutrophils # 8.8 H (1.3-7.7) k/uL Lymphocytes # 0.2 L (1.0-4.8) k/uL Potassium (3.5-5.1) mmol/L Carbon Dioxide (22-30) mmol/L Glucose (74-99) mg/dL POC Glucose (mg/dL) 177 H 179 H (75-99) mg/dL 08/14/17 08/14/17 08/14/17 Range/Units 06:21 11:28 15:34 RBC (3.80-5.40) m/uL Hgb (11.4-16.0) gm/dL Hct (34.0-46.0) % MCHC (31.0-37.0) g/dL RDW (11.5-15.5) % Neutrophils # (1.3-7.7) k/uL Lymphocytes # (1.0-4.8) k/uL Potassium 3.0 L* 2.8 L* (3.5-5.1) mmol/L Carbon Dioxide 33 H (22-30) mmol/L Glucose 164 H (74-99) mg/dL POC Glucose (mg/dL) 158 H (75-99) mg/dL 08/14/17 Range/Units 16:43 RBC (3.80-5.40) m/uL Hgb (11.4-16.0) gm/dL Hct (34.0-46.0) % MCHC (31.0-37.0) g/dL RDW (11.5-15.5) % Neutrophils # (1.3-7.7) k/uL Lymphocytes # (1.0-4.8) k/uL Potassium (3.5-5.1) mmol/L Carbon Dioxide (22-30) mmol/L Glucose (74-99) mg/dL POC Glucose (mg/dL) 174 H (75-99) mg/dL Microbiology - Last 24 Hours (Table) 08/13/17 11:00 Gram Stain - Preliminary Bronchial Washings - Left Bronchial Washings Culture - Preliminary Yeast species 08/09/17 12:15 Blood Culture - Preliminary Blood No Growth after 120 hours 08/13/17 11:00 Acid Fast Bacilli Smear - Final Bronchial Washings - Left Acid Fast Bacilli Culture - Preliminary 08/13/17 11:00 Fungal Culture - Preliminary Bronchial Washings - Left
[2017-08-14 21:22] LABS: Glucose,Whole Blood 162 mg/dL (75-99)
[2017-08-14] MEDS: FUROSEMIDE 10 MG/ML 4 ML VIAL IV SCH (22:41)
[2017-08-14] MEDS: IRON AG/C/B12/CA/SUC.ACID/STOM 1 EACH TAB PO SCH (22:52)
[2017-08-15] MEDS: methylPREDNISolone SOD SUCCI 40 MG/ML 1 ML VIAL IV SCH ×4 (00:25→17:17)
[2017-08-15] MEDS: ALBUTEROL NEBULIZED 2.5 MG/3 ML INHALATION PRN ×2 (03:59→23:53)
[2017-08-15 06:31] LABS: Anisocytosis Slight; Basophils % (A) 0 %; Eosinophils % (A) 0 %; HCT 32.4 % (34.0-46.0); Hypochromasia Moderate; Lymphocytes # (A) 0.2 k/uL (1.0-4.8); Lymphocytes % (A) 1 %; MCH 28.6 pg (25.0-35.0); MCHC 30.8 g/dL (31.0-37.0); MCV 92.8 fL (80.0-100.0); Mean Platelet Volume 8.1; Monocytes # (A) 0.3 k/uL (0-1.0); Monocytes % (A) 2 %; Neutrophils # (A) 10.7 k/uL (1.3-7.7); Neutrophils % (A) 96 %; Platelet Count 216 k/uL (150-450); RBC 3.49 m/uL (3.80-5.40); RDW 16.7 % (11.5-15.5); Reticulocyte % 3.1 % (0.5-2.0); WBC 11.2 k/uL (3.8-10.6)
[2017-08-15 06:38] LABS: Glucose,Whole Blood 191 mg/dL (75-99)
[2017-08-15 06:41] LABS: Anion Gap 4 mmol/L; Blood Urea Nitrogen 15 mg/dL (7-17); Calcium 8.7 mg/dL (8.4-10.2); Carbon Dioxide 39 mmol/L (22-30); Chloride 102 mmol/L (98-107); Glucose 178 mg/dL (74-99); Magnesium 1.7 mg/dL (1.6-2.3); Sodium 145 mmol/L (137-145)
[2017-08-15 07:05] LABS: Potassium 2.8 mmol/L (3.5-5.1)
[2017-08-15] MEDS: INSULIN ASPART 100 UNIT/ML 1 ML 10 ML VIAL SQ SCH ×4 (07:13→21:18)
[2017-08-15] MEDS: BUDESONIDE 1 MG/2 ML NEBU INHALATION SCH ×2 (08:01→20:20)
[2017-08-15] MEDS: IPRATROPIUM-ALBUTEROL 3 ML NEB INHALATION SCH ×4 (08:01→20:20)
[2017-08-15] MEDS: FORMOTEROL FUMARATE 20 MCG/2 ML NEBU INHALATION SCH ×2 (08:01→20:20)
[2017-08-15] MEDS: PANTOPRAZOLE 40 MG/10 ML VIAL IVP SCH (08:24)
[2017-08-15] MEDS: FLUCONAZOLE 100 MG TAB PO SCH (08:25)
[2017-08-15] MEDS: HEPARIN SODIUM,PORCINE 5,000 UNIT/ML 1 ML VIAL SQ SCH ×2 (08:25→21:10)
[2017-08-15] MEDS: cefTRIAXone IN SWFI 1,000 MG/10 ML SYRINGE IVP SCH (08:25)
[2017-08-15] MEDS: METOPROLOL TARTRATE 5 MG/5 ML VIAL IVP SCH (08:25)
[2017-08-15] MEDS: ASPIRIN 81 MG PO SCH (08:25)
[2017-08-15] MEDS: SENNOSIDES-DOCUSATE SODIUM 1 EACH TAB PO SCH ×2 (08:25→21:10)
[2017-08-15] MEDS: FUROSEMIDE 10 MG/ML 4 ML VIAL IV SCH ×2 (08:25→15:27)
[2017-08-15] MEDS: IRON AG/C/B12/CA/SUC.ACID/STOM 1 EACH TAB PO SCH (08:25)
[2017-08-15] MEDS: POTASSIUM CHLORIDE 10 MEQ, LIDOCAINE 2% INJ 10 MG in SODIUM CHLORIDE 0.9% 100 ML IV SCH ×3 (08:43→10:47)
[2017-08-15] MEDS ORDERED: Magnesium Replacement Protocol 1 EACH MISC MISCELLANE PRN (11:04)
[2017-08-15 11:55] LABS: Glucose,Whole Blood 173 mg/dL (75-99)
--- NOTE | 2017-08-15 12:55 | PN ---
PROGRESS NOTE DATE OF SERVICE: 08/15/2017. DATA: 76-year-old white female, room #677, bed 2. She is a 5 foot 1 inch height, weight 71 kg and BSA 1.70 m2, BMI is 29.6 kg/m2. ALLERGIES: She has allergies to ASPIRIN, CODEINE, INSECT VENOM, PENICILLIN, SHELLFISH AND DERIVATIVES. The patient currently seen, evaluated, discussed with the caregiver sitting at bedside and the patient as well. Patient has been desaturated and currently she is on high- flow oxygen and we currently also Dr. Lane, the Pulmonary and Critical, is trying to wean her off. However, she is currently in 70% oxygen with the still high-flow and she is running in the 90s, which is good, but she is not continuing to improve. Today her laboratory indicating white count is improving to 11.2 and hemoglobin 10 and hematocrit is 32.4. Her retic count is high at 3.1 and her potassium was low 2.8, supplemented with the protocol and her sodium 145, potassium 102, carbon dioxide is 39, and her BUN is 0.5, and estimated glomerular filtration rate is more than 60, and she has a glucose 178, covered with insulin to scale. Calcium is 8.7 and magnesium 1.7, and also we are ordering magnesium to be covered with protocol if the magnesium drops. Also the patient is able to currently eat and will change her metoprolol to orally as well as pantoprazole and magnesium supplementation as mentioned. However, she is normal at this time. Her vital signs: The temperature is normal. Pulse rate in the average 100 and she has sinus rhythm. She is on exam, conscious and alert. She is still on the high flow rate. Her chest improved significantly after we discontinued the IV fluid and the patient also was found in the sputum with Mariaelena albicans and we started her on the Diflucan. Currently on examination of the chest. She has improved lungs. However, she had rhonchi bilateral and she has decreased air entry on the left lung. The last chest x-ray was done on August 14 with the impression of developing congestive heart failure or volume overload and at that time, her IV fluid was discontinued. She is urinating well with no evidence of abnormalities and left ventricular function is improved and the chest x-ray reviewed with the underlying cephalization. However, she has chronic scarring on the right lower lobe. The abdomen examination was negative. No tenderness. Positive bowel sounds. Extremities, no edema. ASSESSMENT: 1. Underlying severe hypoxemia with the high-flow oxygen. 2. History of pneumonia and significant improvement with the right lower lung possible scarring or collapse. 3. Underlying chronic obstructive pulmonary disease. 4. History of non toleration of the liquid with minimal aspiration, has been corrected by Thick-it with the underlying swallowing study. 5. Underlying hypertension. 6. Chronic smoker. PLAN: Will continue the current treatment. MMODL / IJN: [id number] /
--- NOTE | 2017-08-15 13:50 | P.PN ---
Subjective Progress Note Date: 08/15/17 Principal diagnosis: Respiratory failure Progress note dated 08/12/2017 76-year-old female admitted with a diagnosis of hypoxemic respiratory failure. The patient has a history of underlying COPD and pneumonia. The patient's overall clinical status is improved slightly. She still has a wet congested cough. Doesn't take deep breaths. Still on high flow oxygen. The patient was admitted on August 09. She's feeling improved. Her improvement has been modest at best. We'll continue to watch very closely. Labs x-rays a medications are all reviewed. Progress note dated 08/14/2017 76-year-old female with history of persistent ongoing hypoxia make respiratory failure. Her car is high flow oxygen therapy. Spends much of her time on either BiPAP or the high flow oxygen device. The patient does have history of underlying COPD and pneumonia. She has been evaluated for pulmonary most him without was negative. The patient underwent bronchoscopy yesterday. She has scanty secretions. There were somewhat bloody. The blood was old. Otherwise not much purulence. I don't know how much it helped. The BAL was done. Also for culture results are negative. They are pending though. They are For up to 8 weeks. The patient feels better once ago home but obviously cannot go home on the amount of oxygen that she's currently requiring. We'll have to watch her closely. X-rays are reviewed. Progress note dated 08/15/2017 76-year-old female with history of persistent and ongoing hypoxemia and respiratory failure. She's currently on high flow oxygen therapy. I told her respiratory therapist he could wean her FiO2 and except saturations in the mid to high 80s. The patient otherwise is doing about the same. Chest x-ray reveals some fluid overload. I started her on some Lasix. She does have underlying COPD and pneumonia. She has been screened for pulmonary embolism. CT angiogram was negative. Bronchoscopy was done for airway secretion control. There was scanty secretions and there were suctioned. Specimens went to laboratory for analysis. Other than that, things seem to be about the same. She clinically looks pretty reasonable. She still is on high flow at 50 L/m. Objective - Vital Signs Vital signs: Vital Signs Temp 97.6 F 08/15/17 12:30 Pulse 95 08/15/17 12:30 Resp 20 08/15/17 12:30 BP 150/97 08/15/17 12:30 Pulse Ox 94 L 08/15/17 12:30 Intake & Output 08/14/17 08/15/17 08/15/17 18:59 06:59 18:59 Intake Total 1654 420 Balance 1654 420 Weight 73.2 kg 71 kg Intake: IV 1100 300 Sodium Chloride 0.9% 1, 1100 300 000 ml @ 100 mls/hr IV . Q10H JASON Rx#:[id number] Oral 554 120 Other: Voiding Method Bedside Commode Bedpan Bedpan # Voids 8 1 - Exam No acute distress, oriented 3. Mild conversational dyspnea HEENT examination is grossly unremarkable. Mucous membranes are moist. No oral lesions. Neck supple. Full range of motion. No adenopathy thyromegaly or neck vein distention. Cardiovascular examination reveals regular rhythm rate. S1-S2 normal. No S3 or S4. No discernible murmur noted. Lungs reveal diffuse bilateral rhonchi. Breath sounds are diminished. No wheezes. A few scattered crackles. Breath sounds are equal throughout. Abdomen soft bowel sounds are heard. No masses or tenderness. Extremities are intact. No cyanosis clubbing or edema. Skin is without rash or lesion. Neurologic examination is brief but nonfocal. - Labs CBC & Chem 7: 08/15/17 05:45 08/15/17 05:45 Labs: Abnormal Lab Results - Last 24 Hours (Table) 08/13/17 08/14/17 08/14/17 Range/Units 11:00 15:34 16:43 WBC (3.8-10.6) k/uL RBC (3.80-5.40) m/uL Hgb (11.4-16.0) gm/dL Hct (34.0-46.0) % MCHC (31.0-37.0) g/dL RDW (11.5-15.5) % Neutrophils # (1.3-7.7) k/uL Lymphocytes # (1.0-4.8) k/uL Retic Count (0.5-2.0) % Potassium 2.8 L* (3.5-5.1) mmol/L Carbon Dioxide (22-30) mmol/L Creatinine (0.52-1.04) mg/dL Glucose (74-99) mg/dL POC Glucose (mg/dL) 174 H (75-99) mg/dL Viral Test See Below H 08/14/17 08/14/17 08/15/17 Range/Units 18:26 21:19 05:45 WBC 11.2 H (3.8-10.6) k/uL RBC 3.49 L (3.80-5.40) m/uL Hgb 10.0 L (11.4-16.0) gm/dL Hct 32.4 L (34.0-46.0) % MCHC 30.8 L (31.0-37.0) g/dL RDW 16.7 H (11.5-15.5) % Neutrophils # 10.7 H (1.3-7.7) k/uL Lymphocytes # 0.2 L (1.0-4.8) k/uL Retic Count 3.1 H (0.5-2.0) % Potassium 3.2 L (3.5-5.1) mmol/L Carbon Dioxide 33 H (22-30) mmol/L Creatinine (0.52-1.04) mg/dL Glucose 187 H (74-99) mg/dL POC Glucose (mg/dL) 162 H (75-99) mg/dL Viral Test 08/15/17 08/15/17 08/15/17 Range/Units 05:45 06:31 11:41 WBC (3.8-10.6) k/uL RBC (3.80-5.40) m/uL Hgb (11.4-16.0) gm/dL Hct (34.0-46.0) % MCHC (31.0-37.0) g/dL RDW (11.5-15.5) % Neutrophils # (1.3-7.7) k/uL Lymphocytes # (1.0-4.8) k/uL Retic Count (0.5-2.0) % Potassium 2.8 L* (3.5-5.1) mmol/L Carbon Dioxide 39 H (22-30) mmol/L Creatinine 0.50 L (0.52-1.04) mg/dL Glucose 178 H (74-99) mg/dL POC Glucose (mg/dL) 191 H 173 H (75-99) mg/dL Viral Test Microbiology - Last 24 Hours (Table) 08/13/17 11:00 Gram Stain - Final Bronchial Washings - Left Bronchial Washings Culture - Final Mariaelena glabrata Mariaelena albicans 08/09/17 12:15 Blood Culture - Preliminary Blood No Growth after 120 hours Assessment and Plan (1) Acute exacerbation of chronic obstructive airways disease Current Visit: Yes Status: Acute Code(s): J44.1 - CHRONIC OBSTRUCTIVE PULMONARY DISEASE W (ACUTE) EXACERBATION SNOMED Code(s): 879576054 (2) Acute respiratory failure Current Visit: Yes Status: Acute Code(s): J96.00 - ACUTE RESPIRATORY FAILURE , UNSP W HYPOXIA OR HYPERCAPNIA SNOMED Code(s): 99802981 (3) COPD exacerbation Current Visit: Yes Status: Acute Code(s): J44.1 - CHRONIC OBSTRUCTIVE PULMONARY DISEASE W (ACUTE) EXACERBATION SNOMED Code(s): 405944219160082 (4) Hypoxemia Current Visit: Yes Status: Acute Code(s): R09.02 - HYPOXEMIA SNOMED Code(s ): 635746161 (5) Fracture of femoral neck, left Current Visit: No Status: Acute Code(s): S72.002A - FRACTURE OF UNSP PART OF NECK OF LEFT FEMUR, INIT SNOMED Code(s): 2954540 (6) Hypertension Current Visit: No Status: Acute Code(s): I10 - ESSENTIAL (PRIMARY) HYPERTENSION SNOMED Code(s): 52477611 (7) Pneumonia Current Visit: No Status: Acute Code(s): J18.9 - PNEUMONIA, UNSPECIFIED ORGANISM SNOMED Code(s): 542265363 (8) Sepsis Current Visit: No Status: Acute Code(s): A41.9 - SEPSIS, UNSPECIFIED ORGANISM SNOMED Code(s): 59392316 (9) Tobacco dependence Current Visit: No Status: Acute Code(s): F17.200 - NICOTINE DEPENDENCE, UNSPECIFIED, UNCOMPLICATED SNOMED Code(s): 43835409 Plan: Plan dated 08/12/2017 The patient's oxygen will continue to be weaned down. We'll review the medications. X-rays are reviewed. The patient's overall prognosis remains very guarded. She has show modest improvement. We'll continue to follow closely. Plan dated 08/13/2017 The patient's labs x-rays a medications are reviewed. The patient's culture data will be reviewed as well. We'll also review her updrafts in her antibiotics. Prognosis is very poor given the fact that she's not been able to be weaned down significantly from her oxygen requirements. She causes might be a consideration. We'll continue to follow. Additional recommendations and suggestions are forthcoming. Plan dated 08/15/2017 The patient's BUN/creatinine are normal. I'll push the dose of Lasix at this time. She will need potassium replacement for hypokalemia. Review her other medications. We'll wean the FiO2. We'll except saturations in the mid to high 80s. Additional recommendations and suggestions are forthcoming. She may benefit from a Trilogy ventilator. Time with Patient: Less than 30
[2017-08-15] MEDS: POTASSIUM CHLORIDE ER 20 MEQ TAB.ER PO SCH ×3 (16:03→21:10)
[2017-08-15 17:11] LABS: Glucose,Whole Blood 165 mg/dL (75-99)
[2017-08-15] MEDS: METOPROLOL TARTRATE 25 MG TAB PO SCH (21:10)
[2017-08-15 21:28] LABS: Glucose,Whole Blood 241 mg/dL (75-99)
[2017-08-16] MEDS: FUROSEMIDE 10 MG/ML 4 ML VIAL IV SCH ×3 (00:53→20:49)
[2017-08-16] MEDS: methylPREDNISolone SOD SUCCI 40 MG/ML 1 ML VIAL IV SCH ×4 (00:53→17:37)
[2017-08-16] MEDS: ALBUTEROL NEBULIZED 2.5 MG/3 ML INHALATION PRN ×2 (04:39→23:27)
[2017-08-16] MEDS: PANTOPRAZOLE 40 MG TABLET PO SCH (06:25)
[2017-08-16] MEDS: INSULIN ASPART 100 UNIT/ML 1 ML 10 ML VIAL SQ SCH ×4 (06:26→20:54)
[2017-08-16 06:31] LABS: Glucose,Whole Blood 170 mg/dL (75-99)
[2017-08-16] MEDS: FORMOTEROL FUMARATE 20 MCG/2 ML NEBU INHALATION SCH ×2 (08:07→19:33)
[2017-08-16] MEDS: IPRATROPIUM-ALBUTEROL 3 ML NEB INHALATION SCH ×4 (08:07→19:33)
[2017-08-16] MEDS: BUDESONIDE 1 MG/2 ML NEBU INHALATION SCH ×2 (08:07→19:33)
[2017-08-16 08:19] LABS: Basophils % (A) 0 %; Eosinophils % (A) 0 %; HCT 35.8 % (34.0-46.0); HGB 10.9 gm/dL (11.4-16.0); Hypochromasia Moderate; Lymphocytes # (A) 0.4 k/uL (1.0-4.8); Lymphocytes % (A) 3 %; MCH 28.6 pg (25.0-35.0); MCHC 30.5 g/dL (31.0-37.0); MCV 93.9 fL (80.0-100.0); Monocytes # (A) 0.3 k/uL (0-1.0); Monocytes % (A) 2 %; Neutrophils # (A) 12.8 k/uL (1.3-7.7); Neutrophils % (A) 95 %; Platelet Count 244 k/uL (150-450); RBC 3.81 m/uL (3.80-5.40); RDW 15.2 % (11.5-15.5); WBC 13.5 k/uL (3.8-10.6)
[2017-08-16 08:23] LABS: Blood Urea Nitrogen 19 mg/dL (7-17); Chloride 90 mmol/L (98-107); Glucose 141 mg/dL (74-99); Sodium 145 mmol/L (137-145)
[2017-08-16 08:30] LABS: Anion Gap 3 mmol/L
[2017-08-16 08:33] LABS: Carbon Dioxide 52 mmol/L (22-30)
[2017-08-16] MEDS: IRON AG/C/B12/CA/SUC.ACID/STOM 1 EACH TAB PO SCH (08:51)
[2017-08-16] MEDS: FLUCONAZOLE 100 MG TAB PO SCH (08:51)
[2017-08-16] MEDS: ASPIRIN 81 MG PO SCH (08:51)
[2017-08-16] MEDS: SENNOSIDES-DOCUSATE SODIUM 1 EACH TAB PO SCH ×2 (08:51→20:50)
[2017-08-16] MEDS: HEPARIN SODIUM,PORCINE 5,000 UNIT/ML 1 ML VIAL SQ SCH ×2 (08:51→20:49)
[2017-08-16] MEDS: METOPROLOL TARTRATE 25 MG TAB PO SCH ×2 (08:51→20:49)
[2017-08-16] MEDS: cefTRIAXone IN SWFI 1,000 MG/10 ML SYRINGE IVP SCH (08:52)
[2017-08-16] MEDS: POTASSIUM CHLORIDE ER 20 MEQ TAB.ER PO SCH ×6 (08:58→22:23)
[2017-08-16 11:39] LABS: Glucose,Whole Blood 179 mg/dL (75-99)
[2017-08-16] MEDS: ALPRAZolam 0.25 MG TAB PO PRN ×2 (12:47→22:22)
--- NOTE | 2017-08-16 12:54 | P.PN ---
Subjective Progress Note Date: 08/16/17 Principal diagnosis: Respiratory failure Progress note dated 08/12/2017 76-year-old female admitted with a diagnosis of hypoxemic respiratory failure. The patient has a history of underlying COPD and pneumonia. The patient's overall clinical status is improved slightly. She still has a wet congested cough. Doesn't take deep breaths. Still on high flow oxygen. The patient was admitted on August 09. She's feeling improved. Her improvement has been modest at best. We'll continue to watch very closely. Labs x-rays a medications are all reviewed. Progress note dated 08/14/2017 76-year-old female with history of persistent ongoing hypoxia make respiratory failure. Her car is high flow oxygen therapy. Spends much of her time on either BiPAP or the high flow oxygen device. The patient does have history of underlying COPD and pneumonia. She has been evaluated for pulmonary most him without was negative. The patient underwent bronchoscopy yesterday. She has scanty secretions. There were somewhat bloody. The blood was old. Otherwise not much purulence. I don't know how much it helped. The BAL was done. Also for culture results are negative. They are pending though. They are For up to 8 weeks. The patient feels better once ago home but obviously cannot go home on the amount of oxygen that she's currently requiring. We'll have to watch her closely. X-rays are reviewed. Progress note dated 08/15/2017 76-year-old female with history of persistent and ongoing hypoxemia and respiratory failure. She's currently on high flow oxygen therapy. I told her respiratory therapist he could wean her FiO2 and except saturations in the mid to high 80s. The patient otherwise is doing about the same. Chest x-ray reveals some fluid overload. I started her on some Lasix. She does have underlying COPD and pneumonia. She has been screened for pulmonary embolism. CT angiogram was negative. Bronchoscopy was done for airway secretion control. There was scanty secretions and there were suctioned. Specimens went to laboratory for analysis. Other than that, things seem to be about the same. She clinically looks pretty reasonable. She still is on high flow at 50 L/m. Progress note dated 08/16/2017 76-year-old female with a history of persistent and ongoing hypoxemia with respiratory failure. The patient has improved but her improvement has been very slow. She continues on high flow oxygen therapy. I did tell respiratory and nursing that the patient's saturations were fine in the mid to high 80s. The patient otherwise is doing about the same or slightly better. Since chest x -ray revealed evidence of fluid overload, were giving her additional Lasix 40 mg every 8 hours. Her primary diagnoses include COPD fluid overload and pneumonia. She was screened for pulmonary embolism. Computed tomography scan angiogram was negative for PE. Bronchoscopy was done for airway secretion control. She had scant secretions. Cultures are either pending or negative. We'll continue to follow. Prognosis is very guarded. Objective - Vital Signs Vital signs: Vital Signs Temp 97.5 F L 08/16/17 12:00 Pulse 94 08/16/17 12:00 Resp 18 08/16/17 12:00 BP 126/67 08/16/17 12:00 Pulse Ox 93 L 08/16/17 12:00 Intake & Output 08/15/17 08/16/17 08/16/17 18:59 06:59 18:59 Intake Total 840 120 Output Total 850 Balance 840 -850 120 Weight 63.5 kg Intake: IV 300 Sodium Chloride 0.9% 1, 300 000 ml @ 100 mls/hr IV . Q10H JASON Rx#:[id number] Intake, IV Titration 300 Amount Potassium Chloride 10 meq 300 Lidocaine 2% Inj 10 mg In Sodium Chloride 0.9% 100 ml @ 100 mls/hr IV Q1HR JASON Rx#:[id number] Oral 240 120 Output: Urine 850 Other: Voiding Method Bedpan Bedpan Bedpan # Voids 22 1 1 # Bowel Movements 0 - Exam No acute distress, oriented 3. Mild conversational dyspnea HEENT examination is grossly unremarkable. Mucous membranes are moist. No oral lesions. Neck supple. Full range of motion. No adenopathy thyromegaly or neck vein distention. Cardiovascular examination reveals regular rhythm rate. S1-S2 normal. No S3 or S4. No discernible murmur noted. Lungs reveal diffuse bilateral rhonchi. Breath sounds are diminished. No wheezes. A few scattered crackles. Breath sounds are equal throughout. Abdomen soft bowel sounds are heard. No masses or tenderness. Extremities are intact. No cyanosis clubbing or edema. Skin is without rash or lesion. Neurologic examination is brief but nonfocal. - Labs CBC & Chem 7: 08/16/17 07:34 08/16/17 07:34 Labs: Abnormal Lab Results - Last 24 Hours (Table) 08/15/17 08/15/17 08/15/17 Range/Units 15:26 17:01 21:11 WBC (3.8-10.6) k/uL Hgb (11.4-16.0) gm/dL MCHC (31.0-37.0) g/dL Neutrophils # (1.3-7.7) k/uL Lymphocytes # (1.0-4.8) k/uL Potassium 2.8 L* (3.5-5.1) mmol/L Chloride (98-107) mmol/L Carbon Dioxide (22-30) mmol/L BUN (7-17) mg/dL Creatinine (0.52-1.04) mg/dL Glucose (74-99) mg/dL POC Glucose (mg/dL) 165 H 241 H (75-99) mg/dL 08/16/17 08/16/17 08/16/17 Range/Units 06:13 07:34 07:34 WBC 13.5 H (3.8-10.6) k/uL Hgb 10.9 L (11.4-16.0) gm/dL MCHC 30.5 L (31.0-37.0) g/dL Neutrophils # 12.8 H (1.3-7.7) k/uL Lymphocytes # 0.4 L (1.0-4.8) k/uL Potassium 3.0 L* (3.5-5.1) mmol/L Chloride 90 L (98-107) mmol/L Carbon Dioxide 52 H* (22-30) mmol/L BUN 19 H (7-17) mg/dL Creatinine 0.48 L (0.52-1.04) mg/dL Glucose 141 H (74-99) mg/dL POC Glucose (mg/dL) 170 H (75-99) mg/dL 08/16/17 Range/Units 11:11 WBC (3.8-10.6) k/uL Hgb (11.4-16.0) gm/dL MCHC (31.0-37.0) g/dL Neutrophils # (1.3-7.7) k/uL Lymphocytes # (1.0-4.8) k/uL Potassium (3.5-5.1) mmol/L Chloride (98-107) mmol/L Carbon Dioxide (22-30) mmol/L BUN (7-17) mg/dL Creatinine (0.52-1.04) mg/dL Glucose (74-99) mg/dL POC Glucose (mg/dL) 179 H (75-99) mg/dL Microbiology - Last 24 Hours (Table) 08/09/17 12:15 Blood Culture - Final Blood No Growth after 144 hours 08/13/17 11:00 Gram Stain - Final Bronchial Washings - Left Bronchial Washings Culture - Final Mariaelena glabrata Mariaelena albicans Assessment and Plan (1) Acute exacerbation of chronic obstructive airways disease Current Visit: Yes Status: Acute Code(s): J44.1 - CHRONIC OBSTRUCTIVE PULMONARY DISEASE W (ACUTE) EXACERBATION SNOMED Code(s): 109454589 (2) Acute respiratory failure Current Visit: Yes Status: Acute Code(s): J96.00 - ACUTE RESPIRATORY FAILURE , UNSP W HYPOXIA OR HYPERCAPNIA SNOMED Code(s): 48818741 (3) COPD exacerbation Current Visit: Yes Status: Acute Code(s): J44.1 - CHRONIC OBSTRUCTIVE PULMONARY DISEASE W (ACUTE) EXACERBATION SNOMED Code(s): 256691310354335 (4) Hypoxemia Current Visit: Yes Status: Acute Code(s): R09.02 - HYPOXEMIA SNOMED Code(s ): 825364222 (5) Fracture of femoral neck, left Current Visit: No Status: Acute Code(s): S72.002A - FRACTURE OF UNSP PART OF NECK OF LEFT FEMUR, INIT SNOMED Code(s): 4745341 (6) Hypertension Current Visit: No Status: Acute Code(s): I10 - ESSENTIAL (PRIMARY) HYPERTENSION SNOMED Code(s): 74241437 (7) Pneumonia Current Visit: No Status: Acute Code(s): J18.9 - PNEUMONIA, UNSPECIFIED ORGANISM SNOMED Code(s): 690386304 (8) Sepsis Current Visit: No Status: Acute Code(s): A41.9 - SEPSIS, UNSPECIFIED ORGANISM SNOMED Code(s): 41191317 (9) Tobacco dependence Current Visit: No Status: Acute Code(s): F17.200 - NICOTINE DEPENDENCE, UNSPECIFIED, UNCOMPLICATED SNOMED Code(s): 45381740 Plan: Plan dated 08/12/2017 The patient's oxygen will continue to be weaned down. We'll review the medications. X-rays are reviewed. The patient's overall prognosis remains very guarded. She has show modest improvement. We'll continue to follow closely. Plan dated 08/13/2017 The patient's labs x-rays a medications are reviewed. The patient's culture data will be reviewed as well. We'll also review her updrafts in her antibiotics. Prognosis is very poor given the fact that she's not been able to be weaned down significantly from her oxygen requirements. She causes might be a consideration. We'll continue to follow. Additional recommendations and suggestions are forthcoming. Plan dated 08/15/2017 The patient's BUN/creatinine are normal. I'll push the dose of Lasix at this time. She will need potassium replacement for hypokalemia. Review her other medications. We'll wean the FiO2. We'll except saturations in the mid to high 80s. Additional recommendations and suggestions are forthcoming. She may benefit from a Trilogy ventilator. Plan dated 08/16/2017 The patient's Lasix was increased. Continuing to wean down her FiO2. Saturations have improved but slowly. Her saturations are okay in the mid to high 80s and low 90s. I'm considering echocardiogram with bubble study to rule out right to left shunt. This might be another explanation for her ongoing hypoxemia. CT angiogram was negative. We'll continue to follow. Time with Patient: Less than 30
--- NOTE | 2017-08-16 14:34 | PN ---
PROGRESS NOTE DATE OF SERVICE: 08/16/2017 DATA: She is a 5 foot 1 inches, weight 63.5 kg, BSA 1.62 m2, BMI 26.5 kg/m2. ALLERGY: ASPIRIN, CODEINE, INSECT VENOM AND PENICILLIN AND SHELLFISH DERIVATIVE. Today patient on date of service August 16 2017. The patient is seen evaluated today and discussed with her the plan of care. Her vital signs: Temperature 97.5 and orally. Pulse is 94 and regular sinus, blood pressure 126/67, and mean is 86. She had respiratory rate is 18 per minute, and she is on high-flow oxygen at 30%. FiO2 of 30, high-flow and her oxygen 93 without oxygen dropped to the 80s. In the laboratory and clinical pattern was indicating that her potassium is 3 and that has supplemented as per protocol. Her carbon dioxide was 52 with carbon dioxide retention with the associated with the acute respiratory failure. Her magnesium was normal as well as that was done yesterday and today her hyperglycemia secondary to steroid and 141. Her creatinine is 0.48 and BUN of 19. Her white count on today was 13.5 and hemoglobin is 10.9, and the hematocrit 35.8, and her electrolytes as mentioned was high carbon dioxide due to the respiratory failure and high-flow oxygen and the Dr. Lane and his team has seen the patient, and they are adjusting her weaning process and in Dr. Lane's note indicating his impression, acute exacerbation of COPD on top of chronic. He has acute respiratory failure and COPD exacerbation, hypoxemia with the use of high-flow and she had a history of fracture of the femoral neck and history of hypertension, history also of the sputum. This is his impression and his plan is to continue with the weaning of the oxygen and he will be following the patient. She has still hypokalemia fluctuating and the patient was increased the Lasix. It is okay mid to high 80s and low 90 by the Pulmonary. Patient currently on the medication and including the steroids and per Pulmonary we started her on the iron and the Diflucan and she is on ceftriaxone at this point with the underlying Mariaelena albicans in the sputum and we started the Diflucan. She is on Diflucan 100 mg once a day. As patient has feeling of significant improvement, however, the oxygen still high-flow and difficult weaning at this time and her lung is improved with bilateral rhonchi and especially mild dullness on the left lung field. The heart was regular sinus rhythm and the abdomen was soft. Positive bowel sounds and extremities no edema and positive pulses. ASSESSMENT: 1. Acute respiratory failure with the high-flow oxygen and history of previous left lung pneumonia. 2. Also she has status post bronchoscopy by Dr. Lane and Mariaelena in the sputum and treated at this time. 3. History of hypertension. 4. Hypertensive heart disease, controlled. 5. History of gastroesophageal reflux disease, currently covered. 6. History of liquid aspiration by video swallowing camera and that was already covered with thicket by the speech pathology. 7. Otherwise the potassium is currently covered with the medication. 8. The patient is still on prednisone as has been kept by Dr. Domingo morillo. Dr. Mcdaniels will cover me tomorrow and I will be back on Thursday as being a new year and I will be out of town for today and tomorrow after seeing the patient today. MMODL / IJN: [id number] /
[2017-08-16 16:36] LABS: Glucose,Whole Blood 180 mg/dL (75-99)
[2017-08-16] MEDS ORDERED: NA PHOS,M-B/NA PHOS,DI-BA 133 ML ENEMA RECTAL ONE (18:00)
[2017-08-16 20:53] LABS: Glucose,Whole Blood 153 mg/dL (75-99)
[2017-08-17] MEDS: methylPREDNISolone SOD SUCCI 40 MG/ML 1 ML VIAL IV SCH ×5 (00:22→23:26)
[2017-08-17] MEDS: ALBUTEROL NEBULIZED 2.5 MG/3 ML INHALATION PRN (02:54)
[2017-08-17 06:03] LABS: Glucose,Whole Blood 149 mg/dL (75-99)
[2017-08-17] MEDS: PANTOPRAZOLE 40 MG TABLET PO SCH (06:41)
[2017-08-17] MEDS: INSULIN ASPART 100 UNIT/ML 1 ML 10 ML VIAL SQ SCH ×4 (06:42→21:38)
[2017-08-17] MEDS: FORMOTEROL FUMARATE 20 MCG/2 ML NEBU INHALATION SCH ×2 (07:51→19:02)
[2017-08-17] MEDS: BUDESONIDE 1 MG/2 ML NEBU INHALATION SCH ×2 (07:51→19:02)
[2017-08-17] MEDS: IPRATROPIUM-ALBUTEROL 3 ML NEB INHALATION SCH ×4 (07:51→19:02)
[2017-08-17] MEDS: ASPIRIN 81 MG PO SCH (08:27)
[2017-08-17] MEDS: FUROSEMIDE 10 MG/ML 4 ML VIAL IV SCH ×2 (08:28→21:38)
[2017-08-17] MEDS: HEPARIN SODIUM,PORCINE 5,000 UNIT/ML 1 ML VIAL SQ SCH ×2 (08:28→20:37)
[2017-08-17] MEDS: IRON AG/C/B12/CA/SUC.ACID/STOM 1 EACH TAB PO SCH (08:28)
[2017-08-17] MEDS: FLUCONAZOLE 100 MG TAB PO SCH (08:28)
[2017-08-17] MEDS: METOPROLOL TARTRATE 25 MG TAB PO SCH ×2 (08:29→20:37)
[2017-08-17] MEDS: SENNOSIDES-DOCUSATE SODIUM 1 EACH TAB PO SCH ×2 (08:29→20:37)
[2017-08-17] MEDS: cefTRIAXone IN SWFI 1,000 MG/10 ML SYRINGE IVP SCH (08:31)
--- NOTE | 2017-08-17 12:01 | P.PN ---
Subjective Progress Note Date: 08/17/17 Principal diagnosis: Respiratory failure Progress note dated 08/12/2017 76-year-old female admitted with a diagnosis of hypoxemic respiratory failure. The patient has a history of underlying COPD and pneumonia. The patient's overall clinical status is improved slightly. She still has a wet congested cough. Doesn't take deep breaths. Still on high flow oxygen. The patient was admitted on August 09. She's feeling improved. Her improvement has been modest at best. We'll continue to watch very closely. Labs x-rays a medications are all reviewed. Progress note dated 08/14/2017 76-year-old female with history of persistent ongoing hypoxia make respiratory failure. Her car is high flow oxygen therapy. Spends much of her time on either BiPAP or the high flow oxygen device. The patient does have history of underlying COPD and pneumonia. She has been evaluated for pulmonary most him without was negative. The patient underwent bronchoscopy yesterday. She has scanty secretions. There were somewhat bloody. The blood was old. Otherwise not much purulence. I don't know how much it helped. The BAL was done. Also for culture results are negative. They are pending though. They are For up to 8 weeks. The patient feels better once ago home but obviously cannot go home on the amount of oxygen that she's currently requiring. We'll have to watch her closely. X-rays are reviewed. Progress note dated 08/15/2017 76-year-old female with history of persistent and ongoing hypoxemia and respiratory failure. She's currently on high flow oxygen therapy. I told her respiratory therapist he could wean her FiO2 and except saturations in the mid to high 80s. The patient otherwise is doing about the same. Chest x-ray reveals some fluid overload. I started her on some Lasix. She does have underlying COPD and pneumonia. She has been screened for pulmonary embolism. CT angiogram was negative. Bronchoscopy was done for airway secretion control. There was scanty secretions and there were suctioned. Specimens went to laboratory for analysis. Other than that, things seem to be about the same. She clinically looks pretty reasonable. She still is on high flow at 50 L/m. Progress note dated 08/16/2017 76-year-old female with a history of persistent and ongoing hypoxemia with respiratory failure. The patient has improved but her improvement has been very slow. She continues on high flow oxygen therapy. I did tell respiratory and nursing that the patient's saturations were fine in the mid to high 80s. The patient otherwise is doing about the same or slightly better. Since chest x -ray revealed evidence of fluid overload, were giving her additional Lasix 40 mg every 8 hours. Her primary diagnoses include COPD fluid overload and pneumonia. She was screened for pulmonary embolism. Computed tomography scan angiogram was negative for PE. Bronchoscopy was done for airway secretion control. She had scant secretions. Cultures are either pending or negative. We'll continue to follow. Prognosis is very guarded. Progress note dated 08/17/2017 76-year-old female with history of persistent ongoing hypoxemia with respiratory failure. Overall the patient has improved but her improvement has been slow. The patient has been diuresed. She is on good breathing medications. She underwent bronchoscopy for airway secretion control. The patient was evaluated for pulmonary embolism. That was negative. She does have a history of underlying COPD. Bronchoscopy revealed only scanty secretions. There are no thick secretions or mucus noted. Objective - Vital Signs Vital signs: Vital Signs Temp 97.4 F L 08/17/17 11:48 Pulse 84 08/17/17 11:51 Resp 20 08/17/17 11:48 BP 166/82 08/17/17 11:48 Pulse Ox 92 L 08/17/17 11:48 Intake & Output 08/16/17 08/17/17 08/17/17 18:59 06:59 18:59 Intake Total 300 120 Output Total 100 Balance 300 -100 120 Weight 61.5 kg Intake: Oral 300 120 Output: Urine 100 Other: Voiding Method Bedpan Bedpan Bedpan # Voids 1 1 1 # Bowel Movements 0 - Exam No acute distress, oriented 3. Mild conversational dyspnea HEENT examination is grossly unremarkable. Mucous membranes are moist. No oral lesions. Neck supple. Full range of motion. No adenopathy thyromegaly or neck vein distention. Cardiovascular examination reveals regular rhythm rate. S1-S2 normal. No S3 or S4. No discernible murmur noted. Lungs reveal diffuse bilateral rhonchi. Breath sounds are diminished. No wheezes. A few scattered crackles. Breath sounds are equal throughout. Abdomen soft bowel sounds are heard. No masses or tenderness. Extremities are intact. No cyanosis clubbing or edema. Skin is without rash or lesion. Neurologic examination is brief but nonfocal. - Labs CBC & Chem 7: 08/16/17 07:34 08/17/17 03:03 Labs: Abnormal Lab Results - Last 24 Hours (Table) 08/13/17 08/16/17 08/16/17 Range/Units 11:00 16:31 16:45 Potassium 3.4 L (3.5-5.1) mmol/L POC Glucose (mg/dL) 180 H (75-99) mg/dL Viral Test See Below H 08/16/17 08/17/17 Range/Units 20:50 06:01 Potassium (3.5-5.1) mmol/L POC Glucose (mg/dL) 153 H 149 H (75-99) mg/dL Viral Test Assessment and Plan (1) Acute exacerbation of chronic obstructive airways disease Current Visit: Yes Status: Acute Code(s): J44.1 - CHRONIC OBSTRUCTIVE PULMONARY DISEASE W (ACUTE) EXACERBATION SNOMED Code(s): 473049113 (2) Acute respiratory failure Current Visit: Yes Status: Acute Code(s): J96.00 - ACUTE RESPIRATORY FAILURE , UNSP W HYPOXIA OR HYPERCAPNIA SNOMED Code(s): 64835227 (3) COPD exacerbation Current Visit: Yes Status: Acute Code(s): J44.1 - CHRONIC OBSTRUCTIVE PULMONARY DISEASE W (ACUTE) EXACERBATION SNOMED Code(s): 578738694126178 (4) Hypoxemia Current Visit: Yes Status: Acute Code(s): R09.02 - HYPOXEMIA SNOMED Code(s ): 619485201 (5) Fracture of femoral neck, left Current Visit: No Status: Acute Code(s): S72.002A - FRACTURE OF UNSP PART OF NECK OF LEFT FEMUR, INIT SNOMED Code(s): 8807584 (6) Hypertension Current Visit: No Status: Acute Code(s): I10 - ESSENTIAL (PRIMARY) HYPERTENSION SNOMED Code(s): 52694420 (7) Pneumonia Current Visit: No Status: Acute Code(s): J18.9 - PNEUMONIA, UNSPECIFIED ORGANISM SNOMED Code(s): 950415297 (8) Sepsis Current Visit: No Status: Acute Code(s): A41.9 - SEPSIS, UNSPECIFIED ORGANISM SNOMED Code(s): 81578652 (9) Tobacco dependence Current Visit: No Status: Acute Code(s): F17.200 - NICOTINE DEPENDENCE, UNSPECIFIED, UNCOMPLICATED SNOMED Code(s): 82070475 Plan: Plan dated 08/12/2017 The patient's oxygen will continue to be weaned down. We'll review the medications. X-rays are reviewed. The patient's overall prognosis remains very guarded. She has show modest improvement. We'll continue to follow closely. Plan dated 08/13/2017 The patient's labs x-rays a medications are reviewed. The patient's culture data will be reviewed as well. We'll also review her updrafts in her antibiotics. Prognosis is very poor given the fact that she's not been able to be weaned down significantly from her oxygen requirements. She causes might be a consideration. We'll continue to follow. Additional recommendations and suggestions are forthcoming. Plan dated 08/15/2017 The patient's BUN/creatinine are normal. I'll push the dose of Lasix at this time. She will need potassium replacement for hypokalemia. Review her other medications. We'll wean the FiO2. We'll except saturations in the mid to high 80s. Additional recommendations and suggestions are forthcoming. She may benefit from a Trilogy ventilator. Plan dated 08/16/2017 The patient's Lasix was increased. Continuing to wean down her FiO2. Saturations have improved but slowly. Her saturations are okay in the mid to high 80s and low 90s. I'm considering echocardiogram with bubble study to rule out right to left shunt. This might be another explanation for her ongoing hypoxemia. CT angiogram was negative. We'll continue to follow. Plan dated 08/17/2017. The patient so Lasix was initially increased and reduce because of prerenal azotemia. Her improvement to have been slow but steady. Saturations are improved. Dr. reyes have come down. The patient's CT angiogram was negative for pulmonary most him. Bronchoscopy revealed only scanty small amounts of secretions. Additional recommendations and suggestions are forthcoming. Prognosis is very guarded. Time with Patient: Less than 30
[2017-08-17 12:10] LABS: Glucose,Whole Blood 186 mg/dL (75-99)
[2017-08-17] MEDS ORDERED: LISINOPRIL 5 MG TAB PO STA (16:31)
[2017-08-17 17:22] LABS: Glucose,Whole Blood 142 mg/dL (75-99)
[2017-08-17 20:55] LABS: Glucose,Whole Blood 202 mg/dL (75-99)
--- NOTE | 2017-08-17 23:30 | PN ---
PROGRESS NOTE DATE OF SERVICE: 08/17/2017 This is a 76-year-old female who is known to have a chronic obstructive pulmonary disease and the patient was admitted to the hospital with fevers and difficulty in breathing and she was in acute respiratory failure and she also has a history of hypertensive cardiovascular disease, gastroesophageal reflux disease, and a history of recurrent aspiration pneumonia and the patient was admitted to the hospital for further evaluation and treatment. The patient was seen by Dr. Lane in consultation and he did a bronchoscopy and bronchial lavage and the patient tolerated the procedure well and patient waiting for the final culture results. The patient is currently using nasal oxygen constantly and also on a updraft treatments and antibiotics and clinically she is showing improvement. Vital signs stable. Heart is in sinus rhythm. Lungs revealed diminished breath sounds both bases. Scattered rales and rhonchi heard bilaterally. Abdomen soft and nontender. There is no mass palpable. Examination of the lower extremity reveals by bilateral minimal pitting edema. Neurologic examination does not reveal any localizing signs. The patient is constantly using oxygen and she had a CT angio which was negative for pulmonary embolism. She denies any chest pain and apparently she is getting better clinically and prognosis is guarded. We will continue current medications and Dr. Salinas her primary care physician will be back tomorrow and he will assume care of the patient starting tomorrow. Prognosis guarded. MMODL / IJN: [id number] /
[2017-08-18] MEDS: ALBUTEROL NEBULIZED 2.5 MG/3 ML INHALATION PRN (03:56)
[2017-08-18] MEDS: methylPREDNISolone SOD SUCCI 40 MG/ML 1 ML VIAL IV SCH ×4 (05:52→23:36)
[2017-08-18 06:21] LABS: Glucose,Whole Blood 174 mg/dL (75-99)
[2017-08-18] MEDS: PANTOPRAZOLE 40 MG TABLET PO SCH ×2 (06:38→06:43)
[2017-08-18] MEDS: INSULIN ASPART 100 UNIT/ML 1 ML 10 ML VIAL SQ SCH ×4 (06:38→21:23)
[2017-08-18] MEDS: IPRATROPIUM-ALBUTEROL 3 ML NEB INHALATION SCH ×4 (08:38→19:30)
[2017-08-18] MEDS: FORMOTEROL FUMARATE 20 MCG/2 ML NEBU INHALATION SCH ×2 (08:38→19:30)
[2017-08-18] MEDS: BUDESONIDE 1 MG/2 ML NEBU INHALATION SCH ×2 (08:38→19:30)
[2017-08-18] MEDS: FLUCONAZOLE 100 MG TAB PO SCH (09:21)
[2017-08-18] MEDS: METOPROLOL TARTRATE 25 MG TAB PO SCH ×2 (09:21→20:20)
[2017-08-18] MEDS: HEPARIN SODIUM,PORCINE 5,000 UNIT/ML 1 ML VIAL SQ SCH (09:21)
[2017-08-18] MEDS: IRON AG/C/B12/CA/SUC.ACID/STOM 1 EACH TAB PO SCH (09:21)
[2017-08-18] MEDS: LISINOPRIL 5 MG TAB PO SCH (09:21)
[2017-08-18] MEDS: SENNOSIDES-DOCUSATE SODIUM 1 EACH TAB PO SCH ×2 (09:21→20:20)
[2017-08-18] MEDS: cefTRIAXone IN SWFI 1,000 MG/10 ML SYRINGE IVP SCH (09:22)
[2017-08-18] MEDS: FUROSEMIDE 10 MG/ML 4 ML VIAL IV SCH (09:22)
[2017-08-18] MEDS: ASPIRIN 81 MG PO SCH (09:22)
[2017-08-18] MEDS ORDERED: RX INFO: IV CONTRAST WAS GIVEN 1 EACH MISC MISCELLANE PRN (09:31)
[2017-08-18] MEDS ORDERED: ENOXAPARIN 60 MG/0.6 ML SYRINGE SQ SCH (09:45)
[2017-08-18 10:54] LABS: ABG Base Excess 25.4 mmol/L; ABG HCO3 51 mmol/L (21-25); ABG PCO2 51 mmHg (35-45); ABG PH 7.61 (7.35-7.45); ABG PO2 51 mmHg (83-108); ABG TCO2 52 mmol/L (19-24)
--- NOTE | 2017-08-18 11:43 | CT ---
EXAMINATION TYPE: CT chest angio for PE DATE OF EXAM: 08/18/2017 COMPARISON: 08/09/2017 HISTORY: Persistant hypoxia CT DLP: 192.7 mGycm CONTRAST: CT chest with contrast and 3D reconstruction with MIP imaging is performed with IV Contrast, patient injected with 100 mL of Omnipaque 350. Contrast-enhanced CT of the chest was performed through the course of the pulmonary arteries with nathan g and mediastinal window settings submitted. 3D reconstruction with MIP imaging was also performed. PULMONARY ARTERIES: The pulmonary arteries and their major tributaries are patent. I do not see yanni dence for sizable filling defect to suggest pulmonary embolic process. LUNGS: Increasing basilar infiltrates and/or atelectasis. Scattered patchy densities lower lobes have also increased. Hyperinflation compatible with COPD. Pulmonary nodule left upper lobe measuring 8.6 mm has slightly irregular margins and should be followed closely and/or PET/CT. MEDIASTINUM: Thoracic aorta is of normal caliber . The heart is not enlarged. No evidence for media stinal mass. No mediastinal lymph nodes greater than 1cm. Large hiatal hernia again noted. HILAR STRUCTURES: No evidence for mass. No hilar lymph nodes greater than 1 cm. UPPER ABDOMEN: No significant abnormality is seen. IMPRESSION: 1. No evidence for Pulmonary embolism at this time. 2. Increasing basilar patchy infiltrates and areas of compressive atelectasis. Correlate for prior 9 pneumonia and/or aspiration pneumonia. 3. Large fixed hiatal hernia redemonstrated. 4. Follow-up for pulmonary nodule left upper lobe.
[2017-08-18 11:50] LABS: Glucose,Whole Blood 209 mg/dL (75-99)
--- NOTE | 2017-08-18 14:06 | P.PN ---
Subjective Progress Note Date: 08/18/17 Principal diagnosis: Acute on chronic hypoxic respiratory failure secondary to acute exacerbation of COPD This is a 68-year-old female who is quite familiar to my service, I saw this patient until on her last admission for shortness of breath which was felt to be related to COPD and pneumonia involving the left lower lobe. Patient was treated and she was eventually discharged home. During her last admission, she was also worked up for pulmonary embolism, and the workup was negative. Patient had hip surgery, and she remains on anticoagulation therapy in the form of within which is therapeutic with INR of 2.5 today. Patient also describes intermittent episodes of cough, and she was noted to have low pulse oximetry before she came into the ER were and her pulse oximetry was in the 60s. Patient was placed on a nonrebreather, and as she was transferred to [facility], she was placed on BiPAP, and ABG was done while on BiPAP. Her BiPAP settings were on the percent FiO2, IPAP of 12 and EPAP of 5. ABG on Zosyn in showed a pO2 of 220 pCO2 of 51 pH of 7.44. Hence the patient will be switched from BiPAP to a nasal cannula. Chest x-ray on this admission showed no evidence of active disease. Patient denies any headaches, no blurred vision no dizziness, no fever, no chills, no hemoptysis, no chest pain. No nausea no vomiting no abdominal pain, she was mostly complaining of shortness of breath. Patient was reevaluated today on 08/10/2017, she is presently on nasal cannula, high flow, doing much better compared to how she felt yesterday. I reviewed the CT of the chest, there is no evidence of pulmonary embolism. There is evidence of postinflammatory changes noted in the left lower lobe, and to some extent some areas of pneumonitis in the left upper lobe, could be residual from her last episode of pneumonia, or could be related to rule he to aspiration pneumonia since the patient is a high risk for aspiration, not to mention that the patient has a large hiatal hernia. Considering this, patient may have to have further GI evaluations, possibly a modified barium swallow, possibly even EGD. In the meantime continue antibiotics for possible aspiration pneumonia. Clinically I feel the findings are mostly postinflammatory from the recent extensive left sided pneumonia for which the patient was treated. These findings were not appreciated on the chest x-ray, but clearly seen on the CT of the chest which is more sensitive. On 08/11/2017 patient is doing well, her FiO2 is currently at 8 L per high flow nasal cannula with O2 sat at 96%. She remains afebrile since admission. Her vital signs are stable, hemodynamics are stable. Lung sounds are positive for some scattered rhonchi, she still has a congested cough. Able to expectorate some white-yellow sputum. Sputum cultures positive for Mariaelena albicans. Urine and blood cultures show no growth. She remains on antibiotics with Rocephin, Levaquin. Continues on Symbicort, continues on steroids 60 mg every 6 hours. Overall some modest improvement was noted. On 08/18/2017 patient seen in follow-up on selective care unit. She remains on AIRVO at 25 L/m, with O2 sat at 86%. She is awake, alert, responds appropriately. Does not appear to be in any acute distress, but remains persistently hypoxemic. Otherwise remains afebrile, hemodynamically stable. Repeat CTA chest was done today, results showed no evidence of pulmonary embolism, and increasing basilar patchy infiltrates and areas of compressive atelectasis. Large fixed hiatal hernia was seen again, and the pulmonary nodule in the left upper lobe measuring 8.6 mm with slightly irregular margins that will have to be followed up on. Hilar structures showed no evidence of a mass. Patient has been diuresed on Lasix, and has now developed significant metabolic alkalosis, with CO2 at 52 on labs from 08/16/2017. Blood gases were ordered and reviewed, pH 7.61, pCO2 is 51, pO2 is 51, and bicarb is 51, this was done and FiO2 of 60%. Patient has been off her anticoagulation since last week, we will resume her Lovenox at therapeutic dose. Objective - Vital Signs Vital signs: Vital Signs Temp 97.5 F L 08/18/17 12:10 Pulse 92 08/18/17 13:15 Resp 22 08/18/17 12:10 BP 142/73 08/18/17 12:10 Pulse Ox 93 L 08/18/17 13:15 Intake & Output 08/17/17 08/18/17 08/18/17 18:59 06:59 18:59 Intake Total 120 220 180 Output Total 300 Balance -180 220 180 Weight 48.6 kg Intake: Oral 120 220 180 Output: Urine 300 Other: Voiding Method Bedpan Bedpan Bedpan # Voids 1 2 0 # Bowel Movements 0 - Exam GENERAL EXAM: Alert, fairly comfortable in no apparent distress. Currently is on AIRVO at 25 l/min HEAD: Normocephalic. EYES: Normal reaction of pupils, equal size. NOSE: Clear with pink turbinates. THROAT: No erythema or exudates. NECK: No masses, no JVD. CHEST: No chest wall deformity. LUNGS: Equal air entry, diminished at the bases, bibasilar crackles CVS: S1 and S2 normal with no audible murmur, regular rhythm. ABDOMEN: No hepatosplenomegaly, normal bowel sounds, no guarding or rigidity. SPINE: No scoliosis or deformity SKIN: No rashes CENTRAL NERVOUS SYSTEM: No focal deficits, tone is normal in all 4 extremities. EXTREMITIES: There is no peripheral edema. No clubbing, no cyanosis. Peripheral pulses are intact. - Labs CBC & Chem 7: 08/16/17 07:34 08/17/17 03:03 Labs: Abnormal Lab Results - Last 24 Hours (Table) 08/17/17 08/17/17 08/18/17 Range/Units 17:05 20:52 06:19 ABG pH (7.35-7.45) ABG pCO2 (35-45) mmHg ABG pO2 (83-108) mmHg ABG HCO3 (21-25) mmol/L ABG Total CO2 (19-24) mmol/L ABG O2 Saturation (94-97) % POC Glucose (mg/dL) 142 H 202 H 174 H (75-99) mg/dL 08/18/17 08/18/17 Range/Units 10:35 11:41 ABG pH 7.61 H* (7.35-7.45) ABG pCO2 51 H (35-45) mmHg ABG pO2 51 L (83-108) mmHg ABG HCO3 51 H* (21-25) mmol/L ABG Total CO2 52 H (19-24) mmol/L ABG O2 Saturation 90.0 L (94-97) % POC Glucose (mg/dL) 209 H (75-99) mg/dL Microbiology - Last 24 Hours (Table) 08/13/17 11:00 Fungal Culture - Preliminary Bronchial Washings - Left Yeast species Assessment and Plan Plan: Assessment: Impression: 1 acute on chronic hypoxic respiratory failure secondary to acute exacerbation of COPD. 2 recent history of left lower lobe pneumonia, healthcare acquired, resolved, and workup on her last admission for pulmonary embolism was negative. 3 history of left hip fracture requiring hemiarthroplasty, Coumadin is currently on hold 4 history of hypertension 5 history of chronic ongoing tobacco dependence. 6 possible aspiration pneumonia, although the findings could be related to her recent episode of extensive pneumonia involving the left lung. That is the findings could be postinflammatory in nature. But the patient is truly a high risk for aspiration. And she has a large hiatal hernia noted on the CT of the chest. Patient may need to have further GI workup and modified barium swallow, possibly EGD to evaluate her large hiatal hernia Recommendation: Patient remains persistently hypoxemic even on high flow oxygen at 25 L/m. We will stop the diuretics, patient developed significant metabolic alkalosis. We will give the patient 2 doses of IV Diamox at 250 mg IV push. Repeat CTA chest from 08/18/2017 was reviewed, and again showed no evidence of pulmonary embolism. There is evidence of increased basilar patchy infiltrates and areas of compressive atelectasis. Hilar structures are negative for any evidence of a mass. Large fixed hiatal hernia was again seen. There is a left upper lobe nodule measuring 8.6 mm that we will need follow-up. We will titrate the oxygen to 50 L/m with FiO2 of 90%. We will obtain pulmonary perfusion scan to evaluate for a shunt. We will request cardiology to perform a bubble study echo to evaluate for any possibility of cardiac septal defect. I performed a history & physical examination of the patient and discussed their management with my nurse practitioner, Candace Traylor. I reviewed the nurse practitioner's note and agree with the documented findings and plan of care. Lung sounds are positive for bibasilar crackles. The findings and the impression was discussed with the patient. I attest to the documentation by the nurse practitioner. Time with Patient: Less than 30
[2017-08-18 16:44] LABS: Glucose,Whole Blood 178 mg/dL (75-99)
[2017-08-18] MEDS: ENOXAPARIN 60 MG/0.6 ML SYRINGE SQ SCH (17:36)
[2017-08-18] MEDS: amLODIPine 5 MG TAB PO SCH (20:20)
[2017-08-18 21:11] LABS: Glucose,Whole Blood 282 mg/dL (75-99)
[2017-08-18] MEDS: ALPRAZolam 0.25 MG TAB PO PRN (23:36)
[2017-08-19] MEDS: ALBUTEROL NEBULIZED 2.5 MG/3 ML INHALATION PRN (01:54)
[2017-08-19 06:10] LABS: Glucose,Whole Blood 240 mg/dL (75-99)
[2017-08-19 06:31] LABS: Basophils % (A) 0 %; Eosinophils % (A) 0 %; HCT 35.1 % (34.0-46.0); HGB 10.7 gm/dL (11.4-16.0); Hypochromasia Moderate; Lymphocytes # (A) 0.3 k/uL (1.0-4.8); Lymphocytes % (A) 2 %; MCH 29.1 pg (25.0-35.0); MCHC 30.6 g/dL (31.0-37.0); MCV 95.3 fL (80.0-100.0); Mean Platelet Volume 8.3; Monocytes # (A) 0.3 k/uL (0-1.0); Monocytes % (A) 2 %; Neutrophils # (A) 14.4 k/uL (1.3-7.7); Neutrophils % (A) 96 %; Platelet Count 205 k/uL (150-450); RBC 3.68 m/uL (3.80-5.40); RDW 15.2 % (11.5-15.5)
[2017-08-19] MEDS: INSULIN ASPART 100 UNIT/ML 1 ML 10 ML VIAL SQ SCH ×4 (06:37→22:15)
[2017-08-19] MEDS: PANTOPRAZOLE 40 MG TABLET PO SCH (06:37)
[2017-08-19] MEDS: methylPREDNISolone SOD SUCCI 40 MG/ML 1 ML VIAL IV SCH ×3 (06:38→17:25)
[2017-08-19] MEDS: ENOXAPARIN 60 MG/0.6 ML SYRINGE SQ SCH ×2 (06:38→17:24)
[2017-08-19 06:50] LABS: ALT 48 U/L (9-52); AST 17 U/L (14-36); Albumin 2.8 g/dL (3.5-5.0); Alkaline Phosphatase 82 U/L (38-126); Blood Urea Nitrogen 37 mg/dL (7-17); Calcium 8.9 mg/dL (8.4-10.2); Chloride 88 mmol/L (98-107); Glucose 226 mg/dL (74-99); Sodium 145 mmol/L (137-145); Total Bilirubin 0.7 mg/dL (0.2-1.3); Total Protein 5.1 g/dL (6.3-8.2)
[2017-08-19 06:58] LABS: Anion Gap 5 mmol/L
[2017-08-19 07:09] LABS: Potassium 2.6 mmol/L (3.5-5.1)
[2017-08-19 07:10] LABS: Carbon Dioxide 52 mmol/L (22-30)
--- NOTE | 2017-08-19 07:34 | PN ---
PROGRESS NOTE DATE OF SERVICE: 08/18/17 NEW DATA: Height is 5 feet 1 inch, weight 60.5 kg, BSA 1.59 m2, BMI 25.2 kg/m2. ALLERGIES: MULTIPLE SHE HAS WAS MENTIONED ALLERGY OF ASPIRIN. However, she is on 81 mg of aspirin daily and I do not think that this is allergic to and CODEINE, INSECT VENOM, PENICILLIN, SHELLFISH. HISTORY: Patient is seen today evaluated on the date of service on August 18, 2017 as today seen and evaluated, found the patient her bronchial washing was Mariaelena albicans. 76-year- old . On the current visit and progress note dictation by Dr. Salinas today I did find out that she became desaturated again and Dr. Rodriguez has been seeing the patient, evaluated her and found that her carbon dioxide went up with carbon dioxide retention. Her pH went up to 7.61 and the PO2 was 51 with hypoxemia and they restarted the oxygen again and increased the flow. The patient has been on high-flow off oxygen and they tried Dr. Lane to wean her off however she relapsed and currently she is on 60% FiO2 with the carbon dioxide as well as PO2 in acute respiratory failure. The bronchial washing as mentioned, she has Mariaelena albicans and in the bronchial wash and she has been covered with Diflucan. The Pulmonary reviewed impression that she had: 1. Acute on chronic hypoxic respiratory failure secondary to acute COPD exacerbation and history of left lower lobe infiltration and resolved. 2. Workup last admission of pulmonary embolism. Embolism was negative. 3. She had left hip fracture requiring hemiarthroplasty. 4. She is on Coumadin but currently we stopped the Coumadin because of the exacerbation and become supratherapeutic and patient has no atrial fibrillation. 5. Hypertension. 6. Chronic ongoing tobacco dependence. However, she quit since her last admission. 7. Possible aspiration. However, patient had with underwent the swallow study with video camera and found that she had only on the liquid and she is on Thick-it at this time and could be post inflammatory in nature that is considered. 8. She has a large hiatal hernia noted on the CT scan of the chest and the modified barium swallow already was done. After evaluation by EGD, the Dr. Low has been seen the patient in her last admission and she decided not to have any for further investigation. We would like to have the discussion between the Pulmonary and Gastroenterology if the thinking that is really the cause of her problem. On the current vital signs: Temperature 97.7 and pulse 95, respiratory rate 18, blood pressure 158/79 with a mean 105. Actually, patient came with hypotension and we held all medication at home until her blood pressure is currently back. She is on high O2 right now. FiO2 of 90 with the flow 50% full high-flow rate. On the microbiology found that she had a bronchial washing on the sputum, Mariaelena albicans and blood culture was negative. PHYSICAL EXAMINATION: On examination, the patient is conscious, alert, oriented. She has a special nasal plug for high-flow oxygen and she is able to eat and her chest bilateral rhonchi and she is on Thicket and the heart was regular sinus and the abdomen was soft. Positive bowel sounds and extremities no edema. Currently, she is on Rocephin 1 g and daily and she has the Rocephin was ordered on August 12 and that will be a total of 5 days on the Rocephin today and in a couple days probably will discontinue it except if the Pulmonary has different opinion. She is currently also on lisinopril 5 mg once a day. She is on the steroid, which continued by the Pulmonary as well and she is in on the Lovenox q.12 hours twice a day. The abdomen is soft, positive bowel sounds and extremities no edema and the heart was compensated and regular sinus rhythm. We will be still monitoring her flow high flow with hopefully with improvement. MMODL / IJN: [id number] /
[2017-08-19] MEDS: BUDESONIDE 1 MG/2 ML NEBU INHALATION SCH ×2 (08:49→20:11)
[2017-08-19] MEDS: FORMOTEROL FUMARATE 20 MCG/2 ML NEBU INHALATION SCH ×2 (08:49→20:12)
[2017-08-19] MEDS: IPRATROPIUM-ALBUTEROL 3 ML NEB INHALATION SCH ×4 (08:49→20:11)
[2017-08-19] MEDS: LOSARTAN 25 MG TAB PO SCH (09:06)
[2017-08-19] MEDS: SENNOSIDES-DOCUSATE SODIUM 1 EACH TAB PO SCH ×3 (09:06→20:37)
[2017-08-19] MEDS: IRON AG/C/B12/CA/SUC.ACID/STOM 1 EACH TAB PO SCH (09:07)
[2017-08-19] MEDS: ASPIRIN 81 MG PO SCH (09:07)
[2017-08-19] MEDS: LISINOPRIL 5 MG TAB PO SCH (09:07)
[2017-08-19] MEDS: METOPROLOL TARTRATE 25 MG TAB PO SCH ×3 (09:07→20:37)
[2017-08-19] MEDS: FLUCONAZOLE 100 MG TAB PO SCH (09:07)
[2017-08-19] MEDS: POTASSIUM CHLORIDE ER 20 MEQ TAB.ER PO SCH ×2 (09:11→12:18)
[2017-08-19] MEDS: cefTRIAXone IN SWFI 1,000 MG/10 ML SYRINGE IVP SCH (09:12)
[2017-08-19 12:21] LABS: Glucose,Whole Blood 212 mg/dL (75-99)
--- NOTE | 2017-08-19 15:11 | P.PN ---
<Candace Traylor M - Last Filed: 08/19/17 14:49> Subjective Progress Note Date: 08/19/17 Principal diagnosis: Acute on chronic hypoxic respiratory failure secondary to acute exacerbation of COPD This is a 68-year-old female who is quite familiar to my service, I saw this patient until on her last admission for shortness of breath which was felt to be related to COPD and pneumonia involving the left lower lobe. Patient was treated and she was eventually discharged home. During her last admission, she was also worked up for pulmonary embolism, and the workup was negative. Patient had hip surgery, and she remains on anticoagulation therapy in the form of within which is therapeutic with INR of 2.5 today. Patient also describes intermittent episodes of cough, and she was noted to have low pulse oximetry before she came into the ER were and her pulse oximetry was in the 60s. Patient was placed on a nonrebreather, and as she was transferred to [facility], she was placed on BiPAP, and ABG was done while on BiPAP. Her BiPAP settings were on the percent FiO2, IPAP of 12 and EPAP of 5. ABG on Zosyn in showed a pO2 of 220 pCO2 of 51 pH of 7.44. Hence the patient will be switched from BiPAP to a nasal cannula. Chest x-ray on this admission showed no evidence of active disease. Patient denies any headaches, no blurred vision no dizziness, no fever, no chills, no hemoptysis, no chest pain. No nausea no vomiting no abdominal pain, she was mostly complaining of shortness of breath. Patient was reevaluated today on 08/10/2017, she is presently on nasal cannula, high flow, doing much better compared to how she felt yesterday. I reviewed the CT of the chest, there is no evidence of pulmonary embolism. There is evidence of postinflammatory changes noted in the left lower lobe, and to some extent some areas of pneumonitis in the left upper lobe, could be residual from her last episode of pneumonia, or could be related to rule he to aspiration pneumonia since the patient is a high risk for aspiration, not to mention that the patient has a large hiatal hernia. Considering this, patient may have to have further GI evaluations, possibly a modified barium swallow, possibly even EGD. In the meantime continue antibiotics for possible aspiration pneumonia. Clinically I feel the findings are mostly postinflammatory from the recent extensive left sided pneumonia for which the patient was treated. These findings were not appreciated on the chest x-ray, but clearly seen on the CT of the chest which is more sensitive. On 08/11/2017 patient is doing well, her FiO2 is currently at 8 L per high flow nasal cannula with O2 sat at 96%. She remains afebrile since admission. Her vital signs are stable, hemodynamics are stable. Lung sounds are positive for some scattered rhonchi, she still has a congested cough. Able to expectorate some white-yellow sputum. Sputum cultures positive for Mariaelena albicans. Urine and blood cultures show no growth. She remains on antibiotics with Rocephin, Levaquin. Continues on Symbicort, continues on steroids 60 mg every 6 hours. Overall some modest improvement was noted. On 08/18/2017 patient seen in follow-up on selective care unit. She remains on AIRVO at 25 L/m, with O2 sat at 86%. She is awake, alert, responds appropriately. Does not appear to be in any acute distress, but remains persistently hypoxemic. Otherwise remains afebrile, hemodynamically stable. Repeat CTA chest was done today, results showed no evidence of pulmonary embolism, and increasing basilar patchy infiltrates and areas of compressive atelectasis. Large fixed hiatal hernia was seen again, and the pulmonary nodule in the left upper lobe measuring 8.6 mm with slightly irregular margins that will have to be followed up on. Hilar structures showed no evidence of a mass. Patient has been diuresed on Lasix, and has now developed significant metabolic alkalosis, with CO2 at 52 on labs from 08/16/2017. Blood gases were ordered and reviewed, pH 7.61, pCO2 is 51, pO2 is 51, and bicarb is 51, this was done and FiO2 of 60%. Patient has been off her anticoagulation since last week, we will resume her Lovenox at therapeutic dose. On 08/19/2017 seen in follow-up. Remains on AIRVO with FiO2 of 80%, satting 97% . Patient is resting comfortably in bed, somewhat somnolent, but arouses easily to verbal stimuli. She has percent, and 2 granddaughters present at the bedside. They're expressing concern over patient's ongoing persistent hypoxemia , overall medical debility. There was a long discussion patient's current condition. Today we obtained CTA chest, that showed no evidence of pulmonary embolism, but there are basilar patchy infiltrates with areas of compressive atelectasis. We had ordered pulmonary perfusion scan for possible shunt were explained patient's hypoxemia. But related to patient's poor respiratory status , and inability to lie flat for the test, we will wait till tomorrow. Patient did have a barium swallow evaluation that showed positive aspiration with thin liquids and multiple episodes of penetration with multiple consistencies. Echocardiogram on 2016 has been reviewed and showed EF 55-60%, with mild to moderate pulmonary hypertension, with mild to moderate right ventricular systolic pressure 46 mmHg. Bronchial washings show Mariaelena albicans. He is afebrile. Lung sounds are positive for expiratory wheezes on the left, and crackles over right lower base, patient still has a very congested loose cough, production of small amount of weight yellow sputum. Blood work has been reviewed, WBCs 15, hemoglobin stable at 10.7, serum sodium is 145, serum potassium is 2.6, carbon dioxide is elevated, carbon dioxide is 52, creatinine 0.90. Patient still has metabolic alkalosis, yesterday we gave 2 doses of Diamox, we will give 2 more doses today. We will correct the serum potassium with potassium replacement protocol. Objective - Vital Signs Vital signs: Vital Signs Temp 96.6 F L 08/19/17 11:50 Pulse 88 08/19/17 12:21 Resp 20 08/19/17 11:50 BP 136/70 08/19/17 11:50 Pulse Ox 97 08/19/17 12:11 Intake & Output 08/18/17 08/19/17 08/19/17 18:59 06:59 18:59 Intake Total 390 100 125 Output Total 100 Balance 390 0 125 Weight 60.5 kg 56 kg Intake: Oral 390 100 125 Output: Urine 100 Other: Voiding Method Bedpan Bedpan # Voids 0 1 1 - Exam GENERAL EXAM: Alert, fairly comfortable in no apparent distress. Currently is on AIRVO at 50 l/min, FiO2 of 80%. HEAD: Normocephalic. EYES: Normal reaction of pupils, equal size. NOSE: Clear with pink turbinates. THROAT: No erythema or exudates. NECK: No masses, no JVD. CHEST: No chest wall deformity. LUNGS: Equal air entry, diminished at the bases, and expiratory wheezes on the left, and crackles over right lower lobe. Loose congested productive cough. CVS: S1 and S2 normal with no audible murmur, regular rhythm. ABDOMEN: No hepatosplenomegaly, normal bowel sounds, no guarding or rigidity. SPINE: No scoliosis or deformity SKIN: No rashes CENTRAL NERVOUS SYSTEM: No focal deficits, tone is normal in all 4 extremities. EXTREMITIES: There is no peripheral edema. No clubbing, no cyanosis. Peripheral pulses are intact. - Labs CBC & Chem 7: 08/19/17 05:43 08/19/17 05:43 Labs: Abnormal Lab Results - Last 24 Hours (Table) 08/18/17 08/18/17 08/19/17 Range/Units 16:33 21:09 05:43 WBC 15.0 H (3.8-10.6) k/uL RBC 3.68 L (3.80-5.40) m/uL Hgb 10.7 L (11.4-16.0) gm/dL MCHC 30.6 L (31.0-37.0) g/dL Neutrophils # 14.4 H (1.3-7.7) k/uL Lymphocytes # 0.3 L (1.0-4.8) k/uL Potassium (3.5-5.1) mmol/L Chloride (98-107) mmol/L Carbon Dioxide (22-30) mmol/L BUN (7-17) mg/dL Glucose (74-99) mg/dL POC Glucose (mg/dL) 178 H 282 H (75-99) mg/dL Total Protein (6.3-8.2) g/dL Albumin (3.5-5.0) g/dL 08/19/17 08/19/17 08/19/17 Range/Units 05:43 06:08 12:01 WBC (3.8-10.6) k/uL RBC (3.80-5.40) m/uL Hgb (11.4-16.0) gm/dL MCHC (31.0-37.0) g/dL Neutrophils # (1.3-7.7) k/uL Lymphocytes # (1.0-4.8) k/uL Potassium 2.6 L* (3.5-5.1) mmol/L Chloride 88 L (98-107) mmol/L Carbon Dioxide 52 H* (22-30) mmol/L BUN 37 H (7-17) mg/dL Glucose 226 H (74-99) mg/dL POC Glucose (mg/dL) 240 H 212 H (75-99) mg/dL Total Protein 5.1 L (6.3-8.2) g/dL Albumin 2.8 L (3.5-5.0) g/dL Microbiology - Last 24 Hours (Table) 08/13/17 11:00 Fungal Culture - Preliminary Bronchial Washings - Left Mariaelena albicans Assessment and Plan Plan: Assessment: Impression: 1 acute on chronic hypoxic respiratory failure secondary to acute exacerbation of COPD. 2 recent history of left lower lobe pneumonia, healthcare acquired, resolved, and workup on her last admission for pulmonary embolism was negative. 3 history of left hip fracture requiring hemiarthroplasty, Coumadin is currently on hold 4 history of hypertension 5 history of chronic ongoing tobacco dependence. 6 possible aspiration pneumonia, although the findings could be related to her recent episode of extensive pneumonia involving the left lung. That is the findings could be postinflammatory in nature. But the patient is truly a high risk for aspiration. And she has a large hiatal hernia noted on the CT of the chest. She did have a modified barium swallow on 08/11/2017 showed aspiration with thin liquids, and multiple episodes of penetration with multiple consistencies. Recommendation: Patient remains persistently hypoxemic even on high flow oxygen at 50 L/m, O2 of 80%. Continue holding the diuretics, patient developed significant metabolic alkalosis. We will give the patient 2 more doses of IV Diamox at 250 mg IV push. CTA chest from 08/18/2017 was reviewed with patient and the family, and showed no evidence of pulmonary embolism. There is evidence of increased basilar patchy infiltrates and areas of compressive atelectasis. Hilar structures are negative for any evidence of a mass. we reordered a pulmonary perfusion scan to rule out a possible shunt, but patient is unable to lie flat at this point so he was rescheduled for tomorrow. Patient has been chronically ill since her fall resulting left hip fracture and hemiarthroplasty. She needs aggressive pulmonary toileting, will order incentive spirometer, increase activity as tolerated, encourage patient to sit up in the chair. This was discussed with the family, they understand patient's complex issues, son reported patient's wishes against intubation and mechanical ventilation should her condition deteriorate. I perf camen ormed a history & physical examination of the patient and discussed their management with my nurse practitioner, Candace Traylor. I reviewed the nurse practitioner's note and agree with the documented findings and plan of care. Lung sounds are positive for crackles over right, wheezing on the left, with loose congested productive cough. The findings and the impression was discussed with the patient. I attest to the documentation by the nurse practitioner. Time with Patient: Less than 30 <Kg Rodriguez - Last Filed: 08/19/17 16:21> Objective - Vital Signs Vital signs: Vital Signs Temp 96.9 F L 08/19/17 15:45 Pulse 92 08/19/17 16:07 Resp 20 08/19/17 16:07 BP 120/62 08/19/17 15:45 Pulse Ox 93 L 08/19/17 16:07 Intake & Output 08/18/17 08/19/17 08/19/17 18:59 06:59 18:59 Intake Total 390 100 125 Output Total 100 Balance 390 0 125 Weight 60.5 kg 56 kg Intake: Oral 390 100 125 Output: Urine 100 Other: Voiding Method Bedpan Bedpan # Voids 0 1 1 - Labs CBC & Chem 7: 08/19/17 05:43 08/19/17 05:43 Labs: Abnormal Lab Results - Last 24 Hours (Table) 08/18/17 08/18/17 08/19/17 Range/Units 16:33 21:09 05:43 WBC 15.0 H (3.8-10.6) k/uL RBC 3.68 L (3.80-5.40) m/uL Hgb 10.7 L (11.4-16.0) gm/dL MCHC 30.6 L (31.0-37.0) g/dL Neutrophils # 14.4 H (1.3-7.7) k/uL Lymphocytes # 0.3 L (1.0-4.8) k/uL Potassium (3.5-5.1) mmol/L Chloride (98-107) mmol/L Carbon Dioxide (22-30) mmol/L BUN (7-17) mg/dL Glucose (74-99) mg/dL POC Glucose (mg/dL) 178 H 282 H (75-99) mg/dL Total Protein (6.3-8.2) g/dL Albumin (3.5-5.0) g/dL 08/19/17 08/19/17 08/19/17 Range/Units 05:43 06:08 12:01 WBC (3.8-10.6) k/uL RBC (3.80-5.40) m/uL Hgb (11.4-16.0) gm/dL MCHC (31.0-37.0) g/dL Neutrophils # (1.3-7.7) k/uL Lymphocytes # (1.0-4.8) k/uL Potassium 2.6 L* (3.5-5.1) mmol/L Chloride 88 L (98-107) mmol/L Carbon Dioxide 52 H* (22-30) mmol/L BUN 37 H (7-17) mg/dL Glucose 226 H (74-99) mg/dL POC Glucose (mg/dL) 240 H 212 H (75-99) mg/dL Total Protein 5.1 L (6.3-8.2) g/dL Albumin 2.8 L (3.5-5.0) g/dL Microbiology - Last 24 Hours (Table) 08/13/17 11:00 Fungal Culture - Preliminary Bronchial Washings - Left Mariaelena albicans Assessment and Plan Plan: This is a joints evaluation that was done along with an expectoration. I also met family members. I explained to them the current condition. Unfortunately patient is progressively getting more weak and debilitated. She is still hypoxic requiring high flow of oxygen and this morning she was at 80% FiO2 to maintain a saturation above 90%. As mentioned earlier, the patient had a repeat CT angios the chest that showed some limited consolidation and atelectasis in lung bases bilaterally yet the findings were not enough to explain the profound hypoxemia. The CT angios did not show pulmonary embolism. Yet this is always a concern knowing that she has had DVT of the lower extremities and based on that I put the patient on 50 mg of Lovenox subcu every 12 hours. At the same time, the patient was diuresed and this made her quite alkalotic and we are trying to reverse to alkalosis by Diamox 250 mg IV every 12 hours. She is having a weak cough and she is congested. She needs to work more on her pulmonary toileting. The patient will be given up incentive spirometer. I'm also going to broaden antibiotic coverage. I'm going to discontinue the Rocephin it was this patient IV meropenem. Daily chest x-rays. Aggressive chest PT and pulmonary toileting. Prognosis remains poor. We'll continue to follow make further recommendations based on her progress. As part of her workup for her profound hypoxemia, a perfusion scan will be also done with delayed images to make sure there is no evidence of any form of shunting.
--- NOTE | 2017-08-19 16:56 | P.PN ---
Subjective Progress Note Date: 08/19/17 This is a dictation on the progress service 08/19/2017. Patient seen and evaluated today [id number] reviewed with the patient the current problem with the high flow oxygen with the possibility of recurrent scarring with the aspiration however the first testing was done indicating that she may have aspiration to the liquid and we started her on the Thick-It but with the progressing her flow high and no on the left obvious reason for the recurrent need for high flow and even with weaning of the oxygen has been failed. The pulmonary his impression at this time acute on chronic hypoxemic respiratory failure secondary to acute exacerbation of COPD. Recent history of lower left lower pneumonia on her last admission with the evaluation for the PE was negative She had history of left hip fracture required the hemiarthroplasty she is on Coumadin and at this time we are stopped to the Coumadin due to [place] level of PT and INR and questionable of bleeding and has been held which was given because of her DVT of the left lower extremities which have been after the event of the left hip arthroplasty. She had history of hypertension and chronic tobacco use she quit since her last admission. The lost test was in with the aspiration to the liquid only. Patient has high flow oxygen at this time as well as carbon dioxide retention and she is on 80% oxygen was 50 L/m and placed on Diamox IV she has developed metabolic alkalosis. And she is on DVT prophylaxis with Lovenox. She had a CTA of the chest on 08/18/2017 as repeated. And the pulmonary order pulmonary perfusion scan. And I will be ordering ultrasound of both legs for evaluation of probable chronic DVT could be considered On the current examination her temperature 96.9 heart rate 91 respiratory rate 20 blood pressure 120/62 and oxygen saturation ranging between 95-93 with with the high flow oxygen the oxygen in the rate is 50 and FiO2 of 70%. Patient is conscious alert oriented time 3 her family at bedside and speech pathology evaluating her today and we will be doing the modified barium swallow tomorrow to be with the clarification on the aspiration. I did talk with the patient in regards if the aspiration was positive then at that time we able to do the PEG tube placement or not and she may have to still absorb the finding after we have the results meanwhile we are in a be obtaining the ultrasound of both lower extremities to rule out chronic DVT. As her last admission we started heparin and followed by Coumadin because of the extended suspicious of DVT HEENT was negative she has high flow oxygen neck was supple and the chest was bilateral rhonchi and high flow oxygen and the heart was regular sinus rhythm. The abdomen is soft positive bowel sounds no organ enlargement and extremities was no edema however we have the history of DVT in the past in the left leg and we will be assessing both legs on these admission. No neurological finding. Assessment: Acute respiratory failure and top of chronic with the use of high flow oxygen. #2 history of left lung pneumonia and #3 status post bronchoscopy by Dr. Lane. Plan: #1 the pulmonary weaning the patient and evaluating. #2 we'll order bilateral ultrasound to rule out DVT causing any showering of the lung Patient had CT angiogram repeated on and compared with 08/09/2017 with the conclusion that increasing basilar infiltrate and or atelectasis scattered she densities in the lower lobes also increased hyperinflation compatible with COPD pulmonary nodule in the left upper lobe measuring 8.6 mm slightly irregular margin with the conclusion no evidence of pulmonary embolism increasing basilar patchy infiltrate and area of compressive atelectasis. History of aspiration before considering. I'll assess her antibiotic Objective - Vital Signs Vital signs: Vital Signs Temp 96.9 F L 08/19/17 15:45 Pulse 90 08/19/17 16:17 Resp 20 08/19/17 16:07 BP 120/62 08/19/17 15:45 Pulse Ox 93 L 08/19/17 16:07 Intake & Output 08/18/17 08/19/17 08/19/17 18:59 06:59 18:59 Intake Total 390 100 125 Output Total 100 Balance 390 0 125 Weight 60.5 kg 56 kg Intake: Oral 390 100 125 Output: Urine 100 Other: Voiding Method Bedpan Bedpan # Voids 0 1 1 - Labs CBC & Chem 7: 08/19/17 05:43 08/19/17 05:43 Labs: Abnormal Lab Results - Last 24 Hours (Table) 08/18/17 08/18/17 08/19/17 Range/Units 16:33 21:09 05:43 WBC 15.0 H (3.8-10.6) k/uL RBC 3.68 L (3.80-5.40) m/uL Hgb 10.7 L (11.4-16.0) gm/dL MCHC 30.6 L (31.0-37.0) g/dL Neutrophils # 14.4 H (1.3-7.7) k/uL Lymphocytes # 0.3 L (1.0-4.8) k/uL Potassium (3.5-5.1) mmol/L Chloride (98-107) mmol/L Carbon Dioxide (22-30) mmol/L BUN (7-17) mg/dL Glucose (74-99) mg/dL POC Glucose (mg/dL) 178 H 282 H (75-99) mg/dL Total Protein (6.3-8.2) g/dL Albumin (3.5-5.0) g/dL 08/19/17 08/19/17 08/19/17 Range/Units 05:43 06:08 12:01 WBC (3.8-10.6) k/uL RBC (3.80-5.40) m/uL Hgb (11.4-16.0) gm/dL MCHC (31.0-37.0) g/dL Neutrophils # (1.3-7.7) k/uL Lymphocytes # (1.0-4.8) k/uL Potassium 2.6 L* (3.5-5.1) mmol/L Chloride 88 L (98-107) mmol/L Carbon Dioxide 52 H* (22-30) mmol/L BUN 37 H (7-17) mg/dL Glucose 226 H (74-99) mg/dL POC Glucose (mg/dL) 240 H 212 H (75-99) mg/dL Total Protein 5.1 L (6.3-8.2) g/dL Albumin 2.8 L (3.5-5.0) g/dL Microbiology - Last 24 Hours (Table) 08/13/17 11:00 Fungal Culture - Preliminary Bronchial Washings - Left Mariaelena albicans
[2017-08-19 17:06] LABS: Glucose,Whole Blood 247 mg/dL (75-99)
[2017-08-19] MEDS: MEROPENEM 1 GM in SODIUM CHLORIDE 0.9% 100 ML IVPB SCH (17:24)
--- NOTE | 2017-08-19 18:27 | US ---
EXAMINATION TYPE: US venous doppler duplex LE BI DATE OF EXAM: 08/19/2017 6:07 PM COMPARISON: 07/17/2017 CLINICAL HISTORY: dvt differentiation if it is acute or chronic. h/o dvt in bilateral legs SIDE PERFORMED: Bilateral TECHNIQUE: The lower extremity deep venous system is examined utilizing real time linear array sonog haydee with graded compression, doppler sonography and color-flow sonography. VESSELS IMAGED: External Iliac Vein (EIV) Common Femoral Vein Deep Femoral Vein Greater Saphenous Vein * Femoral Vein Popliteal Vein Small Saphenous Vein * Proximal Calf Veins (* superficial vessels) Right Leg: Appearance of chronic thrombus within right proximal calf vein, thready flow, not fully c ompressible, nothing acute Left Leg: Appearance of chronic thrombus within right proximal calf vein extending to popiteal vein and dist femoral vein, thready flow, not fully compressible, nothing acute IMPRESSION: Bilateral chronic deep venous thrombosis. No adverse change compared to last exam.
[2017-08-19] MEDS: amLODIPine 5 MG TAB PO SCH ×2 (20:21→20:37)
[2017-08-19 21:19] LABS: Glucose,Whole Blood 160 mg/dL (75-99)
[2017-08-20] MEDS: MEROPENEM 1 GM in SODIUM CHLORIDE 0.9% 100 ML IVPB SCH ×4 (00:03→23:37)
[2017-08-20] MEDS: methylPREDNISolone SOD SUCCI 40 MG/ML 1 ML VIAL IV SCH ×5 (00:15→23:44)
[2017-08-20] MEDS: ALBUTEROL NEBULIZED 2.5 MG/3 ML INHALATION PRN ×3 (00:41→23:49)
[2017-08-20 04:55] LABS: Anisocytosis Slight; Basophils % (A) 0 %; Eosinophils % (A) 0 %; HCT 33.2 % (34.0-46.0); Hypochromasia Marked; Lymphocytes # (A) 0.3 k/uL (1.0-4.8); Lymphocytes % (A) 2 %; MCH 28.7 pg (25.0-35.0); MCV 95.6 fL (80.0-100.0); Mean Platelet Volume 9.4; Monocytes # (A) 0.2 k/uL (0-1.0); Monocytes % (A) 2 %; Neutrophils # (A) 14.9 k/uL (1.3-7.7); Neutrophils % (A) 97 %; Platelet Count 189 k/uL (150-450); RBC 3.47 m/uL (3.80-5.40); Reticulocyte % 1.3 % (0.5-2.0); WBC 15.4 k/uL (3.8-10.6)
[2017-08-20 05:08] LABS: Blood Urea Nitrogen 43 mg/dL (7-17); Calcium 8.9 mg/dL (8.4-10.2); Chloride 94 mmol/L (98-107); Glucose 198 mg/dL (74-99); Magnesium 2.1 mg/dL (1.6-2.3); Sodium 147 mmol/L (137-145)
[2017-08-20 05:15] LABS: Anion Gap 4 mmol/L
[2017-08-20 05:18] LABS: Carbon Dioxide 49 mmol/L (22-30)
[2017-08-20 05:24] LABS: Potassium 2.8 mmol/L (3.5-5.1)
[2017-08-20] MEDS ORDERED: Potassium Replacement Protocol 1 EACH MISC MISCELLANE PRN ×2 (05:38→05:45)
[2017-08-20] MEDS ORDERED: POTASSIUM CHLORIDE ER 20 MEQ TAB.ER PO SCH (06:00)
[2017-08-20 06:15] LABS: Glucose,Whole Blood 213 mg/dL (75-99)
[2017-08-20] MEDS: ENOXAPARIN 60 MG/0.6 ML SYRINGE SQ SCH ×2 (06:23→17:32)
[2017-08-20] MEDS: PANTOPRAZOLE 40 MG TABLET PO SCH ×3 (06:24→09:44)
[2017-08-20] MEDS: POTASSIUM CHLORIDE 10 MEQ in WATER FOR INJECTION 1 100ML.BAG IVPB SCH ×3 (06:47→12:22)
[2017-08-20] MEDS: INSULIN ASPART 100 UNIT/ML 1 ML 10 ML VIAL SQ SCH ×4 (07:05→22:20)
[2017-08-20] MEDS: FORMOTEROL FUMARATE 20 MCG/2 ML NEBU INHALATION SCH ×2 (09:25→19:32)
[2017-08-20] MEDS: IPRATROPIUM-ALBUTEROL 3 ML NEB INHALATION SCH ×4 (09:25→19:32)
[2017-08-20] MEDS: BUDESONIDE 1 MG/2 ML NEBU INHALATION SCH ×2 (09:25→19:32)
[2017-08-20] MEDS: LISINOPRIL 5 MG TAB PO SCH (09:34)
[2017-08-20] MEDS: METOPROLOL TARTRATE 25 MG TAB PO SCH ×2 (09:34→20:42)
[2017-08-20] MEDS: SENNOSIDES-DOCUSATE SODIUM 1 EACH TAB PO SCH ×2 (09:34→20:42)
[2017-08-20] MEDS: LOSARTAN 25 MG TAB PO SCH (09:34)
[2017-08-20] MEDS: traMADol 50 MG TAB PO PRN (09:35)
[2017-08-20] MEDS: FLUCONAZOLE 100 MG TAB PO SCH (09:35)
[2017-08-20] MEDS: ASPIRIN 81 MG PO SCH (09:35)
[2017-08-20] MEDS: IRON AG/C/B12/CA/SUC.ACID/STOM 1 EACH TAB PO SCH (09:45)
--- NOTE | 2017-08-20 12:06 | P.PN ---
Subjective Progress Note Date: 08/20/17 dictation of the progress note on the date of 08/20/[address] Brad M.D. [facility]. Patient seen today evaluated, speech pathology could not do the modified swallow study today as patient could not go down for the testing with the severe hypoxemia and on high flow oxygen. Her white count is 15.4 hemoglobin 10 hematocrit 33.2, platelet count 189, sats on August 192017 She had a potassium of 2.8 on 08/19/2017 was supplemented at that time she had also carbon dioxide elevated was 49 On the vital sign temperature 97.9 pulse 88 , her pulse ox was on high flow and start weaning process again her blood pressure 135/68 and been blood pressure 90 with the pulse ox 91.she is on FiO2 of oxygen flow rate of 55 and FiO2 of 70% . Patient is conscious alert oriented family at bedside. HEENT no changes neck was supple. Chest: Bilateral rhonchi's with the apparently secretion but she could not cough it up. With the high flow oxygen very difficult to wean with the doctor continue following the patient. The heart was regular sinus rhythm. The abdomen was soft positive bowel sounds. Extremities no edema and positive pulses. Ultrasound of the lower extremities bilateral, indicating presence of bilateral chronic DVT and he discuss it with Dr. Sanchez. Neurologically stable. Assessment: #1 acute respiratory failure with the difficulty of weaning with the high flow oxygen. #2 advanced COPD. #3 underlying bilateral chronic DVT, indicated by the ultrasound of the lower extremities bilaterally on this admission 08/19/2017. Discussed with Dr. Sanchez will be assuming the treatment. #4 aspiration with liquid and she is on thick at repeat could not be done today due to evidence of severe shortness of breath for was high flow oxygen and congestion. Number Number #5 underlying significant secretion in the bronchial tree, significant of liquid aspiration currently participates in the complex picture of the patient problem with the chemical pneumonitis. #6 smoking history uncontrolled lost admission with the underlying COPD with exacerbation. #7 history of bronchoscopy by Dr. Lane with the finding indicating Mariaelena albicans yeast patient on Diflucan. Number #7 gradual increase in the sodium and elevation of the creatinine and the BUN with the possibility of intravascular decreased volume. Leukocytosis secondary to steroid, or inflammatory response syndrome. The plan: #1 discussed with the treatment therapy with Dr. Harris pulmonary and critical and he will resume the management. #2 patient on antibiotic as well as antifungal. #3 monitoring the high flow oxygen and weaning. #4 nuclear medicine for the long diagnostic. #5 repeat the's modified barium swallow. When the patient able to go to the x- ray department for the study with the speech pathologist. Objective - Vital Signs Vital signs: Vital Signs Temp 97.9 F 08/20/17 08:00 Pulse 88 08/20/17 09:47 Resp 20 08/20/17 08:00 BP 135/68 08/20/17 08:00 Pulse Ox 91 L 08/20/17 08:00 Intake & Output 08/19/17 08/20/17 08/20/17 18:59 06:59 18:59 Intake Total 365 150 Balance 365 150 Weight 58 kg Intake: Intake, IV Titration 100 Amount Meropenem 1 gm In Sodium 100 Chloride 0.9% 100 ml @ 200 mls/hr IVPB Q8HR [facility] Rx#:[id number] Oral 365 50 Other: Voiding Method Bedpan # Voids 0 2 # Bowel Movements 0 - Labs CBC & Chem 7: 08/20/17 04:40 08/20/17 04:40 Labs: Abnormal Lab Results - Last 24 Hours (Table) 08/19/17 08/19/17 08/19/17 Range/Units 12:01 16:46 21:17 WBC (3.8-10.6) k/uL RBC (3.80-5.40) m/uL Hgb (11.4-16.0) gm/dL Hct (34.0-46.0) % MCHC (31.0-37.0) g/dL RDW (11.5-15.5) % Neutrophils # (1.3-7.7) k/uL Lymphocytes # (1.0-4.8) k/uL Sodium (137-145) mmol/L Potassium (3.5-5.1) mmol/L Chloride (98-107) mmol/L Carbon Dioxide (22-30) mmol/L BUN (7-17) mg/dL Glucose (74-99) mg/dL POC Glucose (mg/dL) 212 H 247 H 160 H (75-99) mg/dL 08/20/17 08/20/17 08/20/17 Range/Units 04:40 04:40 06:10 WBC 15.4 H (3.8-10.6) k/uL RBC 3.47 L (3.80-5.40) m/uL Hgb 10.0 L (11.4-16.0) gm/dL Hct 33.2 L (34.0-46.0) % MCHC 30.0 L (31.0-37.0) g/dL RDW 17.0 H (11.5-15.5) % Neutrophils # 14.9 H (1.3-7.7) k/uL Lymphocytes # 0.3 L (1.0-4.8) k/uL Sodium 147 H (137-145) mmol/L Potassium 2.8 L* (3.5-5.1) mmol/L Chloride 94 L (98-107) mmol/L Carbon Dioxide 49 H* (22-30) mmol/L BUN 43 H (7-17) mg/dL Glucose 198 H (74-99) mg/dL POC Glucose (mg/dL) 213 H (75-99) mg/dL
[2017-08-20] MEDS: POTASSIUM CHLORIDE ER 20 MEQ TAB.ER PO SCH ×2 (12:22→20:41)
[2017-08-20 12:38] LABS: Glucose,Whole Blood 190 mg/dL (75-99)
--- NOTE | 2017-08-20 13:15 | XR ---
EXAMINATION TYPE: XR chest 1V portable DATE OF EXAM: 08/20/2017 COMPARISON: 08/14/2017 INDICATION: Bilateral infiltrates, cough congestion TECHNIQUE: Single frontal view of the chest is obtained. FINDINGS: The heart size is normal. The pulmonary vasculature is normal. Minimal left base. No suspicious changes identified. Right lower lobe infiltrate has resolved. IMPRESSION: 1. Minimal plate atelectasis left base
--- NOTE | 2017-08-20 14:29 | P.PN ---
<Candace Traylor M - Last Filed: 08/20/17 14:11> Subjective Progress Note Date: 08/20/17 Principal diagnosis: Acute on chronic hypoxic respiratory failure secondary to acute exacerbation of COPD This is a 68-year-old female who is quite familiar to my service, I saw this patient until on her last admission for shortness of breath which was felt to be related to COPD and pneumonia involving the left lower lobe. Patient was treated and she was eventually discharged home. During her last admission, she was also worked up for pulmonary embolism, and the workup was negative. Patient had hip surgery, and she remains on anticoagulation therapy in the form of within which is therapeutic with INR of 2.5 today. Patient also describes intermittent episodes of cough, and she was noted to have low pulse oximetry before she came into the ER were and her pulse oximetry was in the 60s. Patient was placed on a nonrebreather, and as she was transferred to [facility], she was placed on BiPAP, and ABG was done while on BiPAP. Her BiPAP settings were on the percent FiO2, IPAP of 12 and EPAP of 5. ABG on Zosyn in showed a pO2 of 220 pCO2 of 51 pH of 7.44. Hence the patient will be switched from BiPAP to a nasal cannula. Chest x-ray on this admission showed no evidence of active disease. Patient denies any headaches, no blurred vision no dizziness, no fever, no chills, no hemoptysis, no chest pain. No nausea no vomiting no abdominal pain, she was mostly complaining of shortness of breath. Patient was reevaluated today on 08/10/2017, she is presently on nasal cannula, high flow, doing much better compared to how she felt yesterday. I reviewed the CT of the chest, there is no evidence of pulmonary embolism. There is evidence of postinflammatory changes noted in the left lower lobe, and to some extent some areas of pneumonitis in the left upper lobe, could be residual from her last episode of pneumonia, or could be related to rule he to aspiration pneumonia since the patient is a high risk for aspiration, not to mention that the patient has a large hiatal hernia. Considering this, patient may have to have further GI evaluations, possibly a modified barium swallow, possibly even EGD. In the meantime continue antibiotics for possible aspiration pneumonia. Clinically I feel the findings are mostly postinflammatory from the recent extensive left sided pneumonia for which the patient was treated. These findings were not appreciated on the chest x-ray, but clearly seen on the CT of the chest which is more sensitive. On 08/11/2017 patient is doing well, her FiO2 is currently at 8 L per high flow nasal cannula with O2 sat at 96%. She remains afebrile since admission. Her vital signs are stable, hemodynamics are stable. Lung sounds are positive for some scattered rhonchi, she still has a congested cough. Able to expectorate some white-yellow sputum. Sputum cultures positive for Mariaelena albicans. Urine and blood cultures show no growth. She remains on antibiotics with Rocephin, Levaquin. Continues on Symbicort, continues on steroids 60 mg every 6 hours. Overall some modest improvement was noted. On 08/18/2017 patient seen in follow-up on selective care unit. She remains on AIRVO at 25 L/m, with O2 sat at 86%. She is awake, alert, responds appropriately. Does not appear to be in any acute distress, but remains persistently hypoxemic. Otherwise remains afebrile, hemodynamically stable. Repeat CTA chest was done today, results showed no evidence of pulmonary embolism, and increasing basilar patchy infiltrates and areas of compressive atelectasis. Large fixed hiatal hernia was seen again, and the pulmonary nodule in the left upper lobe measuring 8.6 mm with slightly irregular margins that will have to be followed up on. Hilar structures showed no evidence of a mass. Patient has been diuresed on Lasix, and has now developed significant metabolic alkalosis, with CO2 at 52 on labs from 08/16/2017. Blood gases were ordered and reviewed, pH 7.61, pCO2 is 51, pO2 is 51, and bicarb is 51, this was done and FiO2 of 60%. Patient has been off her anticoagulation since last week, we will resume her Lovenox at therapeutic dose. On 08/19/2017 seen in follow-up. Remains on AIRVO with FiO2 of 80%, satting 97% . Patient is resting comfortably in bed, somewhat somnolent, but arouses easily to verbal stimuli. She has percent, and 2 granddaughters present at the bedside. They're expressing concern over patient's ongoing persistent hypoxemia , overall medical debility. There was a long discussion patient's current condition. Today we obtained CTA chest, that showed no evidence of pulmonary embolism, but there are basilar patchy infiltrates with areas of compressive atelectasis. We had ordered pulmonary perfusion scan for possible shunt were explained patient's hypoxemia. But related to patient's poor respiratory status , and inability to lie flat for the test, we will wait till tomorrow. Patient did have a barium swallow evaluation that showed positive aspiration with thin liquids and multiple episodes of penetration with multiple consistencies. Echocardiogram on 2016 has been reviewed and showed EF 55-60%, with mild to moderate pulmonary hypertension, with mild to moderate right ventricular systolic pressure 46 mmHg. Bronchial washings show Mariaelena albicans. He is afebrile. Lung sounds are positive for expiratory wheezes on the left, and crackles over right lower base, patient still has a very congested loose cough, production of small amount of weight yellow sputum. Blood work has been reviewed, WBCs 15, hemoglobin stable at 10.7, serum sodium is 145, serum potassium is 2.6, carbon dioxide is elevated, carbon dioxide is 52, creatinine 0.90. Patient still has metabolic alkalosis, yesterday we gave 2 doses of Diamox, we will give 2 more doses today. We will correct the serum potassium with potassium replacement protocol. On 08/20/2017 patient seen in follow-up. Resting quietly in bed, in no acute distress. FiO2 is currently down to 70% per high flow nasal cannula, with AIRVO. O2 sat is at 92-93%. This will be further weaned down. Patient denies any worsening dyspnea, still has pretty significantly congested nonproductive cough. Lung sounds are positive for crackles over left lower lobe, some wheezes on posterior left lower lobe, diminished on the right. Overall patient states she feels slightly better. 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 Chest x-ray was reviewed, and he was clear, with minimal plate atelectasis at the left base. Patient remains on bedrest, has been very minimally active, has significant generalized weakness. She needs aggressive pulmonary toileting, incentive spirometer, chest physiotherapy. Continue present antibiotics, bronchial washings and sputum culture showed Mariaelena albicans. Today's lab work was reviewed, WBC remain at 15.4, stable hemoglobin at 10, serum sodium is up to 147, serum potassium is 2.8 , chloride is 94, Avonex is 49, BUN is 43, and creatinine is 1. Her potassium is being corrected per protocol. Yesterday we started patient on meropenem to broaden her antibiotic coverage in addition to her fluconazole for the evidence of Mariaelena in her bronchial washings and sputum. Hemodynamically patient remains stable. Still unable to travel down to the nuclear medicine department for the pulmonary perfusion scan, as well as her repeat MBS study. She had previously was noted to be aspirating on thin liquids during the previous MBS study from 08/12/2017. For that reason patient has been initiated on nectar thick liquids. Extensive discussion was held with the patient's son and [id number], as well as the attending physician about the patient's ongoing hypoxia. Objective - Vital Signs Vital signs: Vital Signs Temp 97.9 F 08/20/17 08:00 Pulse 96 08/20/17 13:01 Resp 20 08/20/17 08:00 BP 135/68 08/20/17 08:00 Pulse Ox 91 L 08/20/17 08:00 Intake & Output 08/19/17 08/20/17 08/20/17 18:59 06:59 18:59 Intake Total 365 150 Balance 365 150 Weight 58 kg Intake: Intake, IV Titration 100 Amount Meropenem 1 gm In Sodium 100 Chloride 0.9% 100 ml @ 200 mls/hr IVPB Q8HR [facility] Rx#:[id number] Oral 365 50 Other: Voiding Method Bedpan # Voids 0 2 # Bowel Movements 0 - Exam GENERAL EXAM: Alert, fairly comfortable in no apparent distress. Currently is on AIRVO at 55 l/min, FiO2 of 70%. HEAD: Normocephalic. EYES: Normal reaction of pupils, equal size. NOSE: Clear with pink turbinates. THROAT: No erythema or exudates. NECK: No masses, no JVD. CHEST: No chest wall deformity. LUNGS: Equal air entry, diminished at the bases, and expiratory wheezes on the left, and crackles over left lower lobe. Loose congested productive cough. CVS: S1 and S2 normal with no audible murmur, regular rhythm. ABDOMEN: No hepatosplenomegaly, normal bowel sounds, no guarding or rigidity. SPINE: No scoliosis or deformity SKIN: No rashes CENTRAL NERVOUS SYSTEM: No focal deficits, tone is normal in all 4 extremities. EXTREMITIES: There is no peripheral edema. No clubbing, no cyanosis. Peripheral pulses are intact. - Labs CBC & Chem 7: 08/20/17 04:40 08/20/17 04:40 Labs: Abnormal Lab Results - Last 24 Hours (Table) 08/19/17 08/19/17 08/20/17 Range/Units 16:46 21:17 04:40 WBC 15.4 H (3.8-10.6) k/uL RBC 3.47 L (3.80-5.40) m/uL Hgb 10.0 L (11.4-16.0) gm/dL Hct 33.2 L (34.0-46.0) % MCHC 30.0 L (31.0-37.0) g/dL RDW 17.0 H (11.5-15.5) % Neutrophils # 14.9 H (1.3-7.7) k/uL Lymphocytes # 0.3 L (1.0-4.8) k/uL Sodium (137-145) mmol/L Potassium (3.5-5.1) mmol/L Chloride (98-107) mmol/L Carbon Dioxide (22-30) mmol/L BUN (7-17) mg/dL Glucose (74-99) mg/dL POC Glucose (mg/dL) 247 H 160 H (75-99) mg/dL 08/20/17 08/20/17 08/20/17 Range/Units 04:40 06:10 12:15 WBC (3.8-10.6) k/uL RBC (3.80-5.40) m/uL Hgb (11.4-16.0) gm/dL Hct (34.0-46.0) % MCHC (31.0-37.0) g/dL RDW (11.5-15.5) % Neutrophils # (1.3-7.7) k/uL Lymphocytes # (1.0-4.8) k/uL Sodium 147 H (137-145) mmol/L Potassium 2.8 L* (3.5-5.1) mmol/L Chloride 94 L (98-107) mmol/L Carbon Dioxide 49 H* (22-30) mmol/L BUN 43 H (7-17) mg/dL Glucose 198 H (74-99) mg/dL POC Glucose (mg/dL) 213 H 190 H (75-99) mg/dL Assessment and Plan Plan: Assessment: Impression: 1 acute on chronic hypoxic respiratory failure secondary to acute exacerbation of COPD. 2 recent history of left lower lobe pneumonia, healthcare acquired, resolved, and workup on her last admission for pulmonary embolism was negative. 3 history of left hip fracture requiring hemiarthroplasty, Coumadin is currently on hold 4 history of hypertension 5 history of chronic ongoing tobacco dependence. 6 possible aspiration pneumonia, although the findings could be related to her recent episode of extensive pneumonia involving the left lung. That is the findings could be postinflammatory in nature. But the patient is truly a high risk for aspiration. And she has a large hiatal hernia noted on the CT of the chest. She did have a modified barium swallow on 08/11/2017 showed aspiration with thin liquids, and multiple episodes of penetration with multiple consistencies. Recommendation: Patient needs aggressive pulmonary toileting, she has become very generally debilitated, has not been up out of bed, is not able to mobilize secretions effectively, there is a concern of her developing mucous plugging secondary to that. CPT every hour, incentive spirometer to the bedside. Continue holding the diuretics, patient developed significant metabolic alkalosis. Chest x-ray from 08/20/2017 has been reviewed, it is clear with minimal plate atelectasis at the left base. yesterday we've broadened the antibiotic coverage, added meropenem, patient remains on Diflucan, for Mariaelena in the bronchial washing and sputum. Continue weaning FiO2, to maintain O2 sat at 90%. Patient needs physical therapy, increase activity. Continue Lovenox at the therapeutic doses , patient does have chronic DVTs in bilateral lower legs. Still unable to travel downstairs for pulmonary perfusion scan, or repeat MBS. There has been previous evidence of aspiration with thin liquids, patient is now placed on nectar thick liquids. There was discussion about her current condition with her son and her [id number], who are next of kin. Patient condition was also discussed with the attending physician, Dr. Salinas. I perf camen ormed a history & physical examination of the patient and discussed their management with my nurse practitioner, Candace Traylor. I reviewed the nurse practitioner's note and agree with the documented findings and plan of care. Lung sounds are positive for crackles over right, wheezing on the left, with loose congested productive cough. The findings and the impression was discussed with the patient. I attest to the documentation by the nurse practitioner. Time with Patient: Less than 30 <Kg Rodriguez - Last Filed: 08/20/17 15:49> Objective - Vital Signs Vital signs: Vital Signs Temp 97.6 F 08/20/17 12:00 Pulse 94 08/20/17 15:39 Resp 20 08/20/17 12:00 BP 142/65 08/20/17 12:00 Pulse Ox 95 08/20/17 12:00 Intake & Output 08/19/17 08/20/17 08/20/17 18:59 06:59 18:59 Intake Total 365 150 400 Balance 365 150 400 Weight 58 kg 58 kg Intake: Intake, IV Titration 100 400 Amount Meropenem 1 gm In Sodium 100 100 Chloride 0.9% 100 ml @ 200 mls/hr IVPB Q8HR [facility] Rx#:[id number] Potassium Chloride 10 meq 300 In Water For Injection 1 100ml.bag @ 100 mls/hr IVPB Q1H [facility] Rx#: [id number] Oral 365 50 Other: Voiding Method Bedpan # Voids 0 2 # Bowel Movements 0 - Labs CBC & Chem 7: 08/20/17 04:40 08/20/17 04:40 Labs: Abnormal Lab Results - Last 24 Hours (Table) 08/19/17 08/19/17 08/20/17 Range/Units 16:46 21:17 04:40 WBC 15.4 H (3.8-10.6) k/uL RBC 3.47 L (3.80-5.40) m/uL Hgb 10.0 L (11.4-16.0) gm/dL Hct 33.2 L (34.0-46.0) % MCHC 30.0 L (31.0-37.0) g/dL RDW 17.0 H (11.5-15.5) % Neutrophils # 14.9 H (1.3-7.7) k/uL Lymphocytes # 0.3 L (1.0-4.8) k/uL Sodium (137-145) mmol/L Potassium (3.5-5.1) mmol/L Chloride (98-107) mmol/L Carbon Dioxide (22-30) mmol/L BUN (7-17) mg/dL Glucose (74-99) mg/dL POC Glucose (mg/dL) 247 H 160 H (75-99) mg/dL 08/20/17 08/20/17 08/20/17 Range/Units 04:40 06:10 12:15 WBC (3.8-10.6) k/uL RBC (3.80-5.40) m/uL Hgb (11.4-16.0) gm/dL Hct (34.0-46.0) % MCHC (31.0-37.0) g/dL RDW (11.5-15.5) % Neutrophils # (1.3-7.7) k/uL Lymphocytes # (1.0-4.8) k/uL Sodium 147 H (137-145) mmol/L Potassium 2.8 L* (3.5-5.1) mmol/L Chloride 94 L (98-107) mmol/L Carbon Dioxide 49 H* (22-30) mmol/L BUN 43 H (7-17) mg/dL Glucose 198 H (74-99) mg/dL POC Glucose (mg/dL) 213 H 190 H (75-99) mg/dL Assessment and Plan Plan: This is a joint evaluation. I saw this patient along with the nurse practitioner. I also met with the family including her son was the power of finance attorney. I also discussed the case with the primary care physician. The patient is still hypoxic. The patient on 70% FiO2 to maintain a saturation above 90%. Today's chest x-ray shows no acute abnormalities. She has a congested cough. Unable to bring up much sputum. She is on Lovenox for bilateral lower extremity DVT. She is on empiric antibiotic coverage with IV Merrem. Her diabetes has been discontinued based on significant metabolic alkalosis. The patient is on Diamox. Her acute hyponatremia is being treated also with D5 water . The patient is weak. She is quite debilitated. She is unable to ambulate still. She is tolerating the high flow oxygen. I was able to cut down her FiO2 down to 60% and I'm hoping that I will gradually be able to wean down the FiO2 to maintain a saturation above 90%. We will order a echocardiogram with bubble study. We'll continue to follow.
[2017-08-20] MEDS ORDERED: DEXTROSE 5% IN WATER 1,000 ML IV SCH (16:00)
[2017-08-20] MEDS: SODIUM CHLORIDE 0.45% 1,000 ML IV SCH (16:36)
[2017-08-20 17:10] LABS: Glucose,Whole Blood 162 mg/dL (75-99)
[2017-08-20] MEDS ORDERED: NA PHOS,M-B/NA PHOS,DI-BA 133 ML ENEMA RECTAL ONE (19:05)
[2017-08-20] MEDS: amLODIPine 5 MG TAB PO SCH (20:42)
[2017-08-20 21:18] LABS: Glucose,Whole Blood 196 mg/dL (75-99)
[2017-08-21] MEDS: ALBUTEROL NEBULIZED 2.5 MG/3 ML INHALATION PRN ×2 (03:44→22:52)
[2017-08-21 05:59] LABS: Glucose,Whole Blood 158 mg/dL (75-99)
[2017-08-21] MEDS: methylPREDNISolone SOD SUCCI 40 MG/ML 1 ML VIAL IV SCH ×4 (06:27→23:10)
[2017-08-21] MEDS: PANTOPRAZOLE 40 MG TABLET PO SCH (06:27)
[2017-08-21] MEDS: INSULIN ASPART 100 UNIT/ML 1 ML 10 ML VIAL SQ SCH ×4 (06:27→21:24)
[2017-08-21] MEDS: ENOXAPARIN 60 MG/0.6 ML SYRINGE SQ SCH ×2 (06:27→17:14)
[2017-08-21 06:42] LABS: Blood Urea Nitrogen 42 mg/dL (7-17); Calcium 9.3 mg/dL (8.4-10.2); Chloride 99 mmol/L (98-107); Glucose 153 mg/dL (74-99); Potassium 3.1 mmol/L (3.5-5.1); Sodium 148 mmol/L (137-145)
[2017-08-21 06:50] LABS: Anion Gap 3 mmol/L
[2017-08-21 06:59] LABS: Carbon Dioxide 46 mmol/L (22-30)
[2017-08-21 07:12] LABS: ABG Base Excess 16.8 mmol/L; ABG HCO3 41 mmol/L (21-25); ABG Oxygen Saturation 97.1 % (94-97); ABG PCO2 46 mmHg (35-45); ABG PH 7.56 (7.35-7.45); ABG PO2 81 mmHg (83-108); ABG TCO2 42 mmol/L (19-24)
--- NOTE | 2017-08-21 07:17 | XR ---
EXAMINATION TYPE: XR chest 1V portable DATE OF EXAM: 08/21/2017 HISTORY: Shortness of breath. COMPARISON: 08/20/2017 TECHNIQUE: Single view of the chest is submitted. FINDINGS: Demonstrated are scattered senescent parenchymal change. There is no evidence for focal infiltrate. The heart is stable. Hilar and mediastinal structures are within normal limits. Degenerative changes are seen of the dorsal spine. IMPRESSION: 1. Chronic changes without evidence for acute pulmonary disease.
[2017-08-21] MEDS: FORMOTEROL FUMARATE 20 MCG/2 ML NEBU INHALATION SCH ×2 (07:21→18:48)
[2017-08-21] MEDS: IPRATROPIUM-ALBUTEROL 3 ML NEB INHALATION SCH ×4 (07:21→18:48)
[2017-08-21] MEDS: BUDESONIDE 1 MG/2 ML NEBU INHALATION SCH ×2 (07:21→18:48)
[2017-08-21] MEDS: FLUCONAZOLE 100 MG TAB PO SCH (09:00)
[2017-08-21] MEDS: SENNOSIDES-DOCUSATE SODIUM 1 EACH TAB PO SCH ×2 (09:00→21:24)
[2017-08-21] MEDS: METOPROLOL TARTRATE 25 MG TAB PO SCH ×2 (09:00→21:24)
[2017-08-21] MEDS: POTASSIUM CHLORIDE ER 20 MEQ TAB.ER PO SCH ×2 (09:00→21:24)
[2017-08-21] MEDS: LOSARTAN 25 MG TAB PO SCH (09:00)
[2017-08-21] MEDS: IRON AG/C/B12/CA/SUC.ACID/STOM 1 EACH TAB PO SCH (09:00)
[2017-08-21] MEDS: ASPIRIN 81 MG PO SCH (09:00)
[2017-08-21] MEDS: MEROPENEM 1 GM in SODIUM CHLORIDE 0.9% 100 ML IVPB SCH ×3 (09:20→23:10)
[2017-08-21 11:56] LABS: Glucose,Whole Blood 200 mg/dL (75-99)
--- NOTE | 2017-08-21 13:46 | CDI ---
Last Revision, July 2017 Documentation Clarification Form Date: 08/21/2017 1:30:00 PM From: Dayanara Ramirez RN, CCDS Admit Date: 08/09/2017 10:41:00 AM Patient Name: Sherly Varma Visit Number: [id number] ATTENTION: The Clinical Documentation Specialists (CDI) and [facility] Coding Staff appreciate your assistance in clarifying documentation. Please respond to the clarification below the line at the bottom and electronically sign. The CDI & [facility] Coding staff will review the response and follow-up if needed. Please note: Queries are made part of the Legal Health Record. If you have any questions, please contact the author of this message via ITS. Dr. Benigno Salinas History/Risk Factors:. Chief Complaint: "severe hypoxemia and her pulse ox at home was 60-68% only and with some oral cyanosis." Chronic hypoxic respiratory failure, HTN, HTN CVD, Asthma, DVT, Smoker, underlying diastolic dysfunction. Clinical Indicators: 08/14 Attending Progress Note: "elevated BP and PE with a normal systolic function associated with diastolic congestive heart failure considered." 08/19 Pulmonary Progress Note: "Echocardiogram on 2016 has been reviewed and showed EF 55-60%, with mild to moderate pulmonary hypertension, with mild to moderate right ventricular systolic pressure 46 mmHg." 08/14 VS/Pulse OX: Temp 97.3, HR 105, B/P 145/73, RR 20, Spo2 96% 10L nc BNP: Not Done 08/14 Chest X Ray: "developing CHF exacerbation fluid overload state as there is new small bilateral pleural effusions and mild central vascular congestion felt present." Treatment: Lasix 40 mg IVP Q 12 hrs In your professional opinion, can you please clarify the acuity and type of CHF if known? Diastolic Heart Failure: Acute Chronic Acute on Chronic Unable to Determine Other, please specify Please continue to document in your progress notes and discharge summary in order to capture severity of illness and risk of mortality. Include clinical findings that support your diagnosis. patient had acute diastolic congestive heart failure treated with Lasix MTDD
--- NOTE | 2017-08-21 14:07 | P.CRDCN ---
History of Present Illness Consult date: 08/21/17 Chief complaint: Shortness of breath History of present illness: This is a pleasant 76-year-old female patient with a past medical history significant for hypertension and COPD, we asked to see for further evaluation of shortness of breath and possible intracardiac shunt as an etiology for the shortness of breath. The patient was seen initially by our service back in June 2017 for preoperative cardiac assessment before left hip surgery. Subsequently the patient was discharged home and she presented again to the hospital with shortness of breath. Initially the patient was diagnosed with COPD exacerbation and also underlying pneumonia and she has been treated for that. She continues to require high flow nasal cannula oxygen and in spite of that she is maintaining low saturation and continues to be symptomatic in terms of the shortness of breath. She denies having any chest pain or any chest discomfort. The patient did not have any symptoms of dizziness or lightheadedness or syncope. She did undergo a computed tomography scan of the chest and that did not reveal any PE. Currently she is on Coumadin but that because of the hip fracture. The patient is not aware of any prior history of coronary artery disease or congestive heart failure or cardiac arrhythmia. On physical examination, she does look frail 76-year-old who is in mild respiratory distress. She does have diminished breathing sounds bilaterally along with expiratory wheezing and bilateral rhonchi in both lung bases. She does not have any bilateral lower extremities edema. She did undergo an echocardiogram back in June 2017 when she was seen by our service and that revealed normal LV function without any significant valvular abnormalities with evidence of [id number] pulmonary hypertension. Past Medical History Past Medical History: COPD, Hypertension History of Any Multi-Drug Resistant Organisms: None Reported Past Surgical History: Section, Cholecystectomy, Hernia Repair, Orthopedic Surgery, Tonsillectomy, Tubal Ligation Past Anesthesia/Blood Transfusion Reactions: No Reported Reaction Additional Past Anesthesia/Blood Transfusion Reaction / Comment(s): never had a blood transfusion Past Psychological History: No Psychological Hx Reported Smoking Status: Former smoker Past Alcohol Use History: None Reported Past Drug Use History: None Reported - Past Family History Father Family Medical History: No Reported History Mother Family Medical History: No Reported History Medications and Allergies Home Medications Medication Instructions Recorded Confirmed Type Acetaminophen/Diphenhydramine 1 tab PO HS PRN 06/17/17 08/09/17 History [Tylenol PM 500-25mg] Aspirin EC [Ecotrin Low Dose] 81 mg PO DAILY 06/17/17 08/09/17 History Cetirizine HCl [Zyrtec] 10 mg PO DAILY 06/17/17 08/09/17 History Metoprolol Succinate (ER) [Toprol 50 mg PO BID 06/17/17 08/09/17 History XL] Omeprazole Magnesium [Prilosec OTC] 20 mg PO DAILY 06/17/17 08/09/17 History Telmisartan [Micardis] 80 mg PO DAILY 06/17/17 08/09/17 History Sennosides-Docusate Sodium 1 tab PO BID #60 tablet 06/21/17 08/09/17 Rx [Senokot-S] amLODIPine [Norvasc] 5 mg PO HS tab 06/22/17 08/09/17 Rx Albuterol Nebulized [Ventolin 2.5 mg INHALATION RT-Q2H PRN 08/09/17 08/09/17 History Nebulized] Albuterol Sulfate [Proair Hfa] 1 - 2 puff INHALATION RT-Q6H PRN 08/09/17 History Furosemide [Lasix] 20 mg PO DAILY 08/09/17 08/09/17 History Warfarin [Coumadin] 2.5 mg PO DAILY@1800 08/09/17 08/09/17 History traMADol HCL [Ultram] 50 mg PO Q6H PRN 08/09/17 08/09/17 History Allergies Allergy/AdvReac Type Severity Reaction Status Date / Time aspirin Allergy Unknown Verified 08/09/17 09:25 codeine Allergy Unknown Verified 08/09/17 09:25 insect venom Allergy Unknown Verified 08/09/17 09:25 Penicillins Allergy Unknown Verified 08/09/17 09:25 shellfish derived [Shellfish] Allergy Unknown Verified 08/09/17 09:25 Physical Exam Vitals: Vital Signs Temp Pulse Pulse Resp BP BP Pulse Ox 08/21/17 12:17 96 08/21/17 12:02 96 08/21/17 11:45 97.1 F L 78 20 142/75 95 08/21/17 08:00 97.9 F 87 20 142/67 94 L 08/21/17 07:42 92 08/21/17 07:32 92 08/21/17 07:31 92 08/21/17 07:21 88 08/21/17 04:00 96.9 F L 76 22 160/77 90 L 08/21/17 03:58 84 08/21/17 03:45 80 08/21/17 00:01 76 08/21/17 00:00 97.0 F L 77 20 160/75 90 L 08/20/17 23:49 76 08/20/17 20:01 98 08/20/17 20:00 96.7 F L 89 21 128/66 91 L 08/20/17 19:36 96 08/20/17 15:47 97.3 F L 94 78 20 128/60 95 08/20/17 15:39 94 Intake and Output 08/20/17 08/21/17 08/21/17 22:59 06:59 14:59 Intake Total 900 300 100 Output Total 200 Balance 900 100 100 Intake: IV 800 300 Sodium Chloride 0.9% 1, 800 300 000 ml @ 100 mls/hr IV . Q10H [facility] Rx#:[id number] Oral 100 100 Output: Urine 200 Other: Voiding Method Bedpan Bedpan # Voids 1 Weight 57.5 kg 57.5 kg Patient Weight 08/22/17 06:59 Weight 57.5 kg - Constitutional General appearance: mild distress, no acute distress - Respiratory Respiratory: bilateral: rales, rhonchi, wheezing - Cardiovascular Rhythm: regular Heart sounds: normal: S1, S2 Results 08/20/17 04:40 08/21/17 06:04 Comprehensive Metabolic Panel 08/21/17 Range/Units 06:04 Sodium 148 H (137-145) mmol/L Potassium 3.1 L (3.5-5.1) mmol/L Chloride 99 (98-107) mmol/L Carbon Dioxide 46 H* (22-30) mmol/L BUN 42 H (7-17) mg/dL Creatinine 0.83 (0.52-1.04) mg/dL Glucose 153 H (74-99) mg/dL Calcium 9.3 (8.4-10.2) mg/dL Current Medications Generic Name Dose Route Start Last Admin Trade Name Freq PRN Reason Stop Dose Admin Acetazolamide Sodium 250 mg 08/21/17 14:00 Diamox IV Q12HR [facility] Albuterol Sulfate 2.5 mg 08/09/17 12:22 08/21/17 03:44 Ventolin Nebulized INHALATION 2.5 mg RT-Q2H PRN Administration Shortness Of Breath Albuterol/Ipratropium 3 ml 08/09/17 12:00 08/21/17 11:31 Duoneb 0.5 Mg-3 Mg/3 Ml Soln INHALATION 3 ml RT-QID [facility] Administration Alprazolam 0.25 mg 08/16/17 12:40 08/18/17 23:36 Xanax PO 0.25 mg TID PRN Administration Anxiety Amlodipine Besylate 5 mg 08/18/17 21:00 08/20/17 20:42 Norvasc PO 5 mg HS J[facility]ON Administration Aspirin 81 mg 08/14/17 09:00 08/21/17 09:00 Aspirin PO 81 mg DAILY JASON Administration Budesonide 1 mg 08/12/17 20:00 08/21/17 07:21 Pulmicort INHALATION 1 mg RT-BID JASON Administration Enoxaparin Sodium 50 mg 08/18/17 18:00 08/21/17 06:27 Lovenox SQ 50 mg Q12H [facility] Administration Fluconazole 100 mg 08/12/17 13:15 08/21/17 09:00 Diflucan PO 100 mg DAILY J[facility]ON Administration Formoterol Fumarate 20 mcg 08/12/17 20:00 08/21/17 07:21 Perforomist INHALATION 20 mcg RT-BID J[facility]ON Administration Meropenem 1 gm/ Sodium 100 mls @ 200 mls/hr 08/19/17 16:30 08/21/17 09:20 Chloride IVPB 200 mls/hr Q8HR J[facility] Administration Sodium Chloride 1,000 mls @ 50 mls/hr 08/20/17 16:45 08/20/17 16:36 Saline 0.45% IV 50 mls/hr .Q20H [facility] Administration Insulin Aspart 0 unit 08/09/17 12:30 08/21/17 12:19 Novolog SQ 5 unit ACHS JASON Administration Protocol Iron/B12/Vitamin C/Folic Acid 1 each 08/14/17 19:15 08/21/17 09:00 Chromagen Lf PO 1 each DAILY J[facility]ON Administration Losartan Potassium 12.5 mg 08/19/17 09:00 08/21/17 09:00 Cozaar PO 12.5 mg DAILY J[facility] Administration Methylprednisolone Sodium Succinate 40 mg 08/14/17 18:00 08/21/17 12:19 Solu-Medrol IV 40 mg Q6HR J[facility] Administration Metoprolol Tartrate 25 mg 08/15/17 21:00 08/21/17 09:00 Lopressor PO 25 mg BID JASON Administration Miscellaneous Information 1 each 08/14/17 08:27 Potassium Per Protocol MISCELLANE DAILY PRN Per Protocol Protocol Miscellaneous Information 1 each 08/15/17 11:04 Magnesium Per Protocol MISCELLANE DAILY PRN Per Protocol Protocol Pantoprazole Sodium 40 mg 08/16/17 07:30 08/21/17 06:27 Protonix PO 40 mg [id number] JASON Administration Potassium Chloride 20 meq 08/20/17 11:30 08/21/17 09:00 K-Dur 20 PO 20 meq BID JASON Administration Senna/Docusate Sodium 1 each 08/09/17 21:00 08/21/17 09:00 Senokot-S PO 1 each BID [facility] Administration Spironolactone 50 mg 08/22/17 09:00 Aldactone PO DAILY J[facility] Tramadol HCl 50 mg 08/09/17 12:22 08/20/17 09:35 Ultram PO 50 mg Q6H PRN Administration Pain Intake and Output 08/20/17 08/21/17 08/21/17 22:59 06:59 14:59 Intake Total 900 300 100 Output Total 200 Balance 900 100 100 Intake: IV 800 300 Sodium Chloride 0.9% 1, 800 300 000 ml @ 100 mls/hr IV . Q10H [facility] Rx#:[id number] Oral 100 100 Output: Urine 200 Other: Voiding Method Bedpan Bedpan # Voids 1 Weight 57.5 kg 57.5 kg Patient Weight 08/22/17 06:59 Weight 57.5 kg 08/20/17 04:40 08/21/17 06:04 Assessment and Plan Assessment: Assessment #1 acute respiratory failure of unknown etiology at this point #2 COPD exacerbation #3 pneumonia #4 debilitation Plan #1 we will schedule the patient to undergo surface echo with a bubble study #2 I am going to start the patient on diuretics with Aldactone. I do feel that she has a component of congestive heart failure in addition to her COPD exacerbation. Her potassium earlier today was very low. #3 I would get a BMP as well #4 possibly she needs transesophageal echocardiogram as well either as inpatient or outpatient #5 follow-up with the patient.
--- NOTE | 2017-08-21 16:24 | P.PN ---
Subjective Progress Note Date: 08/21/17 Principal diagnosis: Acute on chronic hypoxic respiratory failure secondary to acute exacerbation of COPD This is a 68-year-old female who is quite familiar to my service, I saw this patient until on her last admission for shortness of breath which was felt to be related to COPD and pneumonia involving the left lower lobe. Patient was treated and she was eventually discharged home. During her last admission, she was also worked up for pulmonary embolism, and the workup was negative. Patient had hip surgery, and she remains on anticoagulation therapy in the form of within which is therapeutic with INR of 2.5 today. Patient also describes intermittent episodes of cough, and she was noted to have low pulse oximetry before she came into the ER were and her pulse oximetry was in the 60s. Patient was placed on a nonrebreather, and as she was transferred to [facility], she was placed on BiPAP, and ABG was done while on BiPAP. Her BiPAP settings were on the percent FiO2, IPAP of 12 and EPAP of 5. ABG on Zosyn in showed a pO2 of 220 pCO2 of 51 pH of 7.44. Hence the patient will be switched from BiPAP to a nasal cannula. Chest x-ray on this admission showed no evidence of active disease. Patient denies any headaches, no blurred vision no dizziness, no fever, no chills, no hemoptysis, no chest pain. No nausea no vomiting no abdominal pain, she was mostly complaining of shortness of breath. Patient was reevaluated today on 08/10/2017, she is presently on nasal cannula, high flow, doing much better compared to how she felt yesterday. I reviewed the CT of the chest, there is no evidence of pulmonary embolism. There is evidence of postinflammatory changes noted in the left lower lobe, and to some extent some areas of pneumonitis in the left upper lobe, could be residual from her last episode of pneumonia, or could be related to rule he to aspiration pneumonia since the patient is a high risk for aspiration, not to mention that the patient has a large hiatal hernia. Considering this, patient may have to have further GI evaluations, possibly a modified barium swallow, possibly even EGD. In the meantime continue antibiotics for possible aspiration pneumonia. Clinically I feel the findings are mostly postinflammatory from the recent extensive left sided pneumonia for which the patient was treated. These findings were not appreciated on the chest x-ray, but clearly seen on the CT of the chest which is more sensitive. On 08/11/2017 patient is doing well, her FiO2 is currently at 8 L per high flow nasal cannula with O2 sat at 96%. She remains afebrile since admission. Her vital signs are stable, hemodynamics are stable. Lung sounds are positive for some scattered rhonchi, she still has a congested cough. Able to expectorate some white-yellow sputum. Sputum cultures positive for Mariaelena albicans. Urine and blood cultures show no growth. She remains on antibiotics with Rocephin, Levaquin. Continues on Symbicort, continues on steroids 60 mg every 6 hours. Overall some modest improvement was noted. On 08/18/2017 patient seen in follow-up on selective care unit. She remains on AIRVO at 25 L/m, with O2 sat at 86%. She is awake, alert, responds appropriately. Does not appear to be in any acute distress, but remains persistently hypoxemic. Otherwise remains afebrile, hemodynamically stable. Repeat CTA chest was done today, results showed no evidence of pulmonary embolism, and increasing basilar patchy infiltrates and areas of compressive atelectasis. Large fixed hiatal hernia was seen again, and the pulmonary nodule in the left upper lobe measuring 8.6 mm with slightly irregular margins that will have to be followed up on. Hilar structures showed no evidence of a mass. Patient has been diuresed on Lasix, and has now developed significant metabolic alkalosis, with CO2 at 52 on labs from 08/16/2017. Blood gases were ordered and reviewed, pH 7.61, pCO2 is 51, pO2 is 51, and bicarb is 51, this was done and FiO2 of 60%. Patient has been off her anticoagulation since last week, we will resume her Lovenox at therapeutic dose. On 08/19/2017 seen in follow-up. Remains on AIRVO with FiO2 of 80%, satting 97% . Patient is resting comfortably in bed, somewhat somnolent, but arouses easily to verbal stimuli. She has percent, and 2 granddaughters present at the bedside. They're expressing concern over patient's ongoing persistent hypoxemia , overall medical debility. There was a long discussion patient's current condition. Today we obtained CTA chest, that showed no evidence of pulmonary embolism, but there are basilar patchy infiltrates with areas of compressive atelectasis. We had ordered pulmonary perfusion scan for possible shunt were explained patient's hypoxemia. But related to patient's poor respiratory status , and inability to lie flat for the test, we will wait till tomorrow. Patient did have a barium swallow evaluation that showed positive aspiration with thin liquids and multiple episodes of penetration with multiple consistencies. Echocardiogram on 2016 has been reviewed and showed EF 55-60%, with mild to moderate pulmonary hypertension, with mild to moderate right ventricular systolic pressure 46 mmHg. Bronchial washings show Mariaelena albicans. He is afebrile. Lung sounds are positive for expiratory wheezes on the left, and crackles over right lower base, patient still has a very congested loose cough, production of small amount of weight yellow sputum. Blood work has been reviewed, WBCs 15, hemoglobin stable at 10.7, serum sodium is 145, serum potassium is 2.6, carbon dioxide is elevated, carbon dioxide is 52, creatinine 0.90. Patient still has metabolic alkalosis, yesterday we gave 2 doses of Diamox, we will give 2 more doses today. We will correct the serum potassium with potassium replacement protocol. On 08/20/2017 patient seen in follow-up. Resting quietly in bed, in no acute distress. FiO2 is currently down to 70% per high flow nasal cannula, with AIRVO. O2 sat is at 92-93%. This will be further weaned down. Patient denies any worsening dyspnea, still has pretty significantly congested nonproductive cough. Lung sounds are positive for crackles over left lower lobe, some wheezes on posterior left lower lobe, diminished on the right. Overall patient states she feels slightly better. 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 Chest x-ray was reviewed, and he was clear, with minimal plate atelectasis at the left base. Patient remains on bedrest, has been very minimally active, has significant generalized weakness. She needs aggressive pulmonary toileting, incentive spirometer, chest physiotherapy. Continue present antibiotics, bronchial washings and sputum culture showed Mariaelena albicans. Today's lab work was reviewed, WBC remain at 15.4, stable hemoglobin at 10, serum sodium is up to 147, serum potassium is 2.8 , chloride is 94, Avonex is 49, BUN is 43, and creatinine is 1. Her potassium is being corrected per protocol. Yesterday we started patient on meropenem to broaden her antibiotic coverage in addition to her fluconazole for the evidence of Mariaelena in her bronchial washings and sputum. Hemodynamically patient remains stable. Still unable to travel down to the nuclear medicine department for the pulmonary perfusion scan, as well as her repeat MBS study. She had previously was noted to be aspirating on thin liquids during the previous MBS study from 08/12/2017. For that reason patient has been initiated on nectar thick liquids. Extensive discussion was held with the patient's son and [id number], as well as the attending physician about the patient's ongoing hypoxia. On 08/21/2017 patient seen in the selective care floor. ABGs from this morning were reviewed, showing improvement of metabolic alkalosis, hypoxemia. PH was 7.56, pCO2 is 46, pO2 was 81, this was done and FiO2 of 60%. The FiO2 was weaned down to 55%. Lab work shows his sodium 148, serum potassium is 3.1, carbon dioxide is down to 46, BUN is 42, creatinine 0.83. Patient's chest x- ray was reviewed, shows chronic changes without evidence of any acute pulmonary disease. Patient is awake, alert, looking better today. She has been receiving CPT, incentive spirometer effort is 250-500 mL was. Continue with aggressive pulmonary toileting. Patient is too weak to get up out of bed. She is tolerating oral intake, currently on nectar thick liquids and soft diet. Vital signs are stable, patient remains afebrile. Lung sounds are positive for scattered rhonchi, still has some congested productive cough with small amount of clear sputum. Cardiology consult was requested in view of patient's hypoxemia. The plan is for patient to undergo bubble echo study at the bedside today. Objective - Vital Signs Vital signs: Vital Signs Temp 96.9 F L 08/21/17 15:31 Pulse 86 08/21/17 15:31 Resp 20 08/21/17 15:31 BP 143/65 08/21/17 15:31 Pulse Ox 93 L 08/21/17 15:31 Intake & Output 08/20/17 08/21/17 08/21/17 18:59 06:59 18:59 Intake Total 700 1100 700 Output Total 400 200 Balance 300 900 700 Weight 58 kg 57.5 kg 57.5 kg Intake: IV 1100 Sodium Chloride 0.9% 1, 1100 000 ml @ 100 mls/hr IV . Q10H [facility] Rx#:[id number] Intake, IV Titration 400 500 Amount Meropenem 1 gm In Sodium 100 100 Chloride 0.9% 100 ml @ 200 mls/hr IVPB Q8HR [facility] Rx#:[id number] Potassium Chloride 10 meq 300 In Water For Injection 1 100ml.bag @ 100 mls/hr IVPB Q1H [facility] Rx#: [id number] Sodium Chloride 0.45% 1, 400 000 ml @ 50 mls/hr IV . Q20H [facility] Rx#:[id number] Oral 300 200 Output: Urine 400 200 Other: Voiding Method Bedpan # Voids 1 3 # Bowel Movements 2 - Exam GENERAL EXAM: Alert, fairly comfortable in no apparent distress. Currently is on AIRVO at 55 l/min, FiO2 of 70%. HEAD: Normocephalic. EYES: Normal reaction of pupils, equal size. NOSE: Clear with pink turbinates. THROAT: No erythema or exudates. NECK: No masses, no JVD. CHEST: No chest wall deformity. LUNGS: Equal air entry, diminished at the bases, and a few scattered rhonchi. Loose congested productive cough. CVS: S1 and S2 normal with no audible murmur, regular rhythm. ABDOMEN: No hepatosplenomegaly, normal bowel sounds, no guarding or rigidity. SPINE: No scoliosis or deformity SKIN: No rashes CENTRAL NERVOUS SYSTEM: No focal deficits, tone is normal in all 4 extremities. EXTREMITIES: There is no peripheral edema. No clubbing, no cyanosis. Peripheral pulses are intact. - Labs CBC & Chem 7: 08/20/17 04:40 08/21/17 06:04 Labs: Abnormal Lab Results - Last 24 Hours (Table) 08/20/17 08/20/17 08/21/17 Range/Units 16:37 21:17 05:55 ABG pH (7.35-7.45) ABG pCO2 (35-45) mmHg ABG pO2 (83-108) mmHg ABG HCO3 (21-25) mmol/L ABG Total CO2 (19-24) mmol/L ABG O2 Saturation (94-97) % Sodium (137-145) mmol/L Potassium (3.5-5.1) mmol/L Carbon Dioxide (22-30) mmol/L BUN (7-17) mg/dL Glucose (74-99) mg/dL POC Glucose (mg/dL) 162 H 196 H 158 H (75-99) mg/dL 08/21/17 08/21/17 08/21/17 Range/Units 06:04 07:00 11:54 ABG pH 7.56 H (7.35-7.45) ABG pCO2 46 H (35-45) mmHg ABG pO2 81 L (83-108) mmHg ABG HCO3 41 H* (21-25) mmol/L ABG Total CO2 42 H (19-24) mmol/L ABG O2 Saturation 97.1 H (94-97) % Sodium 148 H (137-145) mmol/L Potassium 3.1 L (3.5-5.1) mmol/L Carbon Dioxide 46 H* (22-30) mmol/L BUN 42 H (7-17) mg/dL Glucose 153 H (74-99) mg/dL POC Glucose (mg/dL) 200 H (75-99) mg/dL Assessment and Plan Plan: Assessment: Impression: 1 acute on chronic hypoxic respiratory failure secondary to acute exacerbation of COPD, limited bilateral infiltrates. However this appears to be out of proportion to the patient's current level of persistent hypoxia. This is still currently under investigation, patient has undergone extensive pulmonary workup , CT chest was negative for PE. Pulmonary perfusion scan is on hold, due to patient's marginal respiratory status and high oxygen demand. Cardiology was consulted, and bubble echocardiogram will be done at the bedside. 2 recent history of left lower lobe pneumonia, healthcare acquired, resolved, and workup on her last admission for pulmonary embolism was negative. 3 history of left hip fracture requiring hemiarthroplasty, Coumadin is currently on hold 4 history of hypertension 5 history of chronic ongoing tobacco dependence. 6 possible aspiration pneumonia, although the findings could be related to her recent episode of extensive pneumonia involving the left lung. That is the findings could be postinflammatory in nature. But the patient is truly a high risk for aspiration. And she has a large hiatal hernia noted on the CT of the chest. She did have a modified barium swallow on 08/11/2017 showed aspiration with thin liquids, and multiple episodes of penetration with multiple consistencies. Recommendation: Continue pulmonary toileting, CPT every hour, incentive spirometer. Continue holding the diuretics, today's ABG BMP showed improvement in the degree of metabolic alkalosis. Chest x-ray from 08/21/2017 has been reviewed, shows no active pulmonary abnormality. Continue meropenem and Diflucan, Continue weaning FiO2, to maintain O2 sat at 90%. Patient needs physical therapy, increase activity. 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 Pulmonary perfusion scan remains on hold, cardiology has been consulted, patient is expected ventricle bubble echo study at the bedside today. I perf camen ormed a history & physical examination of the patient and discussed their management with my nurse practitioner, Candace Traylor. I reviewed the nurse practitioner's note and agree with the documented findings and plan of care. Lung sounds are positive for scattered rhonchi. The findings and the impression was discussed with the patient. I attest to the documentation by the nurse practitioner. Time with Patient: Less than 30
[2017-08-21 16:43] LABS: Glucose,Whole Blood 183 mg/dL (75-99)
--- NOTE | 2017-08-21 17:25 | PN ---
PROGRESS NOTE DATE OF SERVICE: 08/21/2017 Age [age] years old white female . DATA: She is 5 foot 1 inches and she is a 57.5 kg, BSA 1.56 m2, BMI 24.0 kg/m2. ALLERGY: ALLERGIES AND ADVERSE EFFECT WAS MENTIONED ASPIRIN. However, she is on aspirin now and did not have an affect her and hopefully that will be taken away and CODEINE, INSECT VENOM, PENICILLIN, SHELLFISH AND DERIVATIVES. The patient seen today and evaluated and discussed with her the plan of care. She appeared to be gradual improvement today and gradual weaning off by the Pulmonary Dr. Rodriguez. She has no edema of the lower extremities and she is able to sit up in the bedside from the physical therapy point of view, not yet ambulatory. Her vital signs: Her temperature 96.9, and pulse rate is 86 per minute and regular, respiratory rate 20 and blood pressure 143/65 and her mean blood pressure 91 and her oxygen was on 50%. She still on the high-flow and her pulse ox 93% and doing gradual weaning. The laboratories and the laboratory indicating that his ABGs today on the . This is the date of service is August 21, 2017. Her ABG was still metabolic alkalosis with a pH of 7.56 and which was done at 7:00 am in the morning and her CO2 was 41 and her PO2 was 81. Her saturation was 97 on 60 FIO2 subsequently addressed and decreased. Prior to that on the 6:00 am she had another one and another chemistry profile and chemistry profile showed a sodium 148 and potassium was low and we still continue supplementation, however, is better improved yesterday and 3.1. Her carbon dioxide was 46, which carbon dioxide retention with the BUN of 42, creatinine is 0.83 with the estimated glomerular filtration rate more than 60. Her glucose 153 and her blood sugar has been monitored and covered to scale., her calcium is 9.3. Her beta natriuretic peptide was 946. Next on the imaging she had today chest x-ray and chest x-ray showed that no evidence of pneumonia and which is a great finding at this time with the presence of chronic changes without evidence of acute pulmonary disease. She was seen by the cardiology team, Dr. Caro, outside sales professional and his impression at this time that she had acute respiratory failure of unknown etiology and COPD exacerbation. Pneumonia has been cleared and debility. He will be ordering the echo with the bubble study and he started her on Aldactone and the patient maybe had a component of congestive heart failure, probably with the exacerbation of COPD and he ordered BMP as well as need transesophageal echocardiography inpatient or outpatient in the future. Patient is seen today and examined. She is awake, alert. Her caregiver at bedside as well as her granddaughter as well and she is rubbing . HEENT was negative and she is awake, alert, as mentioned above. The neck was supple and no evidence of JVD now and no evidence of congestive heart failure on the chest x-ray. The heart was regular sinus rhythm and the abdomen was soft. Positive bowel sounds and her blood pressure is fairly well controlled and the abdomen is soft. Positive bowel sounds. No organ enlargement and she had chronic DVT and she is currently on anticoagulant twice a day per Dr. Rodriguez. She has also history of the aspiration to liquid and as well as history of echocardiogram was done in the previous admission, which indicating normal stable systolic function. The extremities: No edema and positive pulses. With the underlying assessment as mentioned before, still has: 1. Acute respiratory failure was hypoxic with high-flow oxygen. 2. History on prior admission with left lung pneumonia and that was completely resolved in the current chest x-ray. 3. 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 4. She had chronic tobacco dependency. However, she stopped after her last admission. 5. She had as mentioned underlying post inflammatory and could be still be showing pulmonary embolism versus atelectasis considered. However could not be proven by the CT scan angiogram in the face of persistent chronic DVT. 6. The underlying congestive heart failure, diastolic, acute that could be present and due to the pulmonary effect and pulmonary hypertension and which probably in no appropriate to consider that with her oxygen demand and supply with the high oxygen flow. PLAN: The planning is the patient once she has improved and able to go to a jail, probably the patient will be benefit of also associated diagnosis severe debility and deconditioning with the chronic illness and need Shelter for rehab and evaluation and continuing the ambulation and for further care, we will be planning for jail [facility] or [facility] when that is available to them. We will continue the care. MMODL / IJN: [id number] /
[2017-08-21 20:42] LABS: Glucose,Whole Blood 283 mg/dL (75-99)
[2017-08-21] MEDS: amLODIPine 5 MG TAB PO SCH (21:23)
[2017-08-21] MEDS: SODIUM CHLORIDE 0.45% 1,000 ML IV SCH (21:29)
[2017-08-22] MEDS: ALBUTEROL NEBULIZED 2.5 MG/3 ML INHALATION PRN (03:26)
[2017-08-22 06:07] LABS: Glucose,Whole Blood 168 mg/dL (75-99)
[2017-08-22] MEDS: PANTOPRAZOLE 40 MG TABLET PO SCH (06:27)
[2017-08-22] MEDS: methylPREDNISolone SOD SUCCI 40 MG/ML 1 ML VIAL IV SCH ×3 (06:27→17:21)
[2017-08-22] MEDS: INSULIN ASPART 100 UNIT/ML 1 ML 10 ML VIAL SQ SCH ×4 (06:27→22:01)
[2017-08-22] MEDS: ENOXAPARIN 60 MG/0.6 ML SYRINGE SQ SCH ×2 (06:27→18:03)
[2017-08-22] MEDS: BUDESONIDE 1 MG/2 ML NEBU INHALATION SCH ×2 (07:34→21:05)
[2017-08-22] MEDS: FORMOTEROL FUMARATE 20 MCG/2 ML NEBU INHALATION SCH ×2 (07:34→21:05)
[2017-08-22] MEDS: IPRATROPIUM-ALBUTEROL 3 ML NEB INHALATION SCH ×4 (07:34→21:05)
--- NOTE | 2017-08-22 08:18 | ECHOF ---
Referral Reason:limited echo....bubble study MEASUREMENTS -------- HEIGHT: 154.9 cm WEIGHT: 57.2 kg BP: FINDINGS -------- Sinus rhythm. Limited Study Overall left ventricular systolic function is normal with, an EF between 60 - 65 %. Contrast study was performed with 2 iv injections of 8 ccs of agitated normal saline, at rest, and wi th cough. Interatrial and interventricular septum intact. SUBOPTIMAL ECHO IMAGES, CONSIDER REPEAT STIDY OR DAVID CONCLUSIONS -------- 1. Sinus rhythm. 2. Limited Study 3. Overall left ventricular systolic function is normal with, an EF between 60 - 65 %. 4. Contrast study was performed with 2 iv injections of 8 ccs of agitated normal saline, at rest, and with cough. 5. Interatrial and interventricular septum intact. POWER AND RECOVERY SUPERINTENDENT: Jacqui Soto RDCS
[2017-08-22] MEDS: MEROPENEM 1 GM in SODIUM CHLORIDE 0.9% 100 ML IVPB SCH ×2 (08:51→15:53)
[2017-08-22] MEDS: POTASSIUM CHLORIDE ER 20 MEQ TAB.ER PO SCH ×2 (08:56→22:04)
[2017-08-22] MEDS: IRON AG/C/B12/CA/SUC.ACID/STOM 1 EACH TAB PO SCH (08:56)
[2017-08-22] MEDS: SPIRONOLACTONE 25 MG TAB PO SCH (08:56)
[2017-08-22] MEDS: LOSARTAN 25 MG TAB PO SCH (08:56)
[2017-08-22] MEDS: ASPIRIN 81 MG PO SCH (08:56)
[2017-08-22] MEDS: SODIUM CHLORIDE 0.45% 1,000 ML IV SCH (08:57)
[2017-08-22] MEDS: FLUCONAZOLE 100 MG TAB PO SCH (08:58)
[2017-08-22] MEDS: SENNOSIDES-DOCUSATE SODIUM 1 EACH TAB PO SCH ×2 (08:58→21:55)
[2017-08-22] MEDS: METOPROLOL TARTRATE 25 MG TAB PO SCH ×2 (08:58→22:03)
--- NOTE | 2017-08-22 09:53 | XR ---
EXAMINATION TYPE: XR chest 1V portable DATE OF EXAM: 08/22/2017 HISTORY: Shortness of breath. REFERENCE: Previous study dated 08/21/2017. FINDINGS: The lungs are overinflated. The heart is mildly enlarged. There is some scarring at the lef t lung base. I do not see evidence of pneumonia or edema. IMPRESSION: 1. COPD. 2. MILD CARDIOMEGALY. 3. SCARRING VERSUS ATELECTASIS, LEFT LUNG BASE.
[2017-08-22] MEDS: traMADol 50 MG TAB PO PRN (11:05)
[2017-08-22] MEDS: ALPRAZolam 0.25 MG TAB PO PRN (11:07)
[2017-08-22 12:00] LABS: Glucose,Whole Blood 223 mg/dL (75-99)
--- NOTE | 2017-08-22 13:23 | P.PN ---
Subjective Progress Note Date: 08/22/17 This is a 68-year-old female who is quite familiar to my service, I saw this patient until on her last admission for shortness of breath which was felt to be related to COPD and pneumonia involving the left lower lobe. Patient was treated and she was eventually discharged home. During her last admission, she was also worked up for pulmonary embolism, and the workup was negative. Patient had hip surgery, and she remains on anticoagulation therapy in the form of within which is therapeutic with INR of 2.5 today. Patient also describes intermittent episodes of cough, and she was noted to have low pulse oximetry before she came into the ER were and her pulse oximetry was in the 60s. Patient was placed on a nonrebreather, and as she was transferred to [facility], she was placed on BiPAP, and ABG was done while on BiPAP. Her BiPAP settings were on the percent FiO2, IPAP of 12 and EPAP of 5. ABG on Zosyn in showed a pO2 of 220 pCO2 of 51 pH of 7.44. Hence the patient will be switched from BiPAP to a nasal cannula. Chest x-ray on this admission showed no evidence of active disease. Patient denies any headaches, no blurred vision no dizziness, no fever, no chills, no hemoptysis, no chest pain. No nausea no vomiting no abdominal pain, she was mostly complaining of shortness of breath. Patient was reevaluated today on 08/10/2017, she is presently on nasal cannula, high flow, doing much better compared to how she felt yesterday. I reviewed the CT of the chest, there is no evidence of pulmonary embolism. There is evidence of postinflammatory changes noted in the left lower lobe, and to some extent some areas of pneumonitis in the left upper lobe, could be residual from her last episode of pneumonia, or could be related to rule he to aspiration pneumonia since the patient is a high risk for aspiration, not to mention that the patient has a large hiatal hernia. Considering this, patient may have to have further GI evaluations, possibly a modified barium swallow, possibly even EGD. In the meantime continue antibiotics for possible aspiration pneumonia. Clinically I feel the findings are mostly postinflammatory from the recent extensive left sided pneumonia for which the patient was treated. These findings were not appreciated on the chest x-ray, but clearly seen on the CT of the chest which is more sensitive. On 08/11/2017 patient is doing well, her FiO2 is currently at 8 L per high flow nasal cannula with O2 sat at 96%. She remains afebrile since admission. Her vital signs are stable, hemodynamics are stable. Lung sounds are positive for some scattered rhonchi, she still has a congested cough. Able to expectorate some white-yellow sputum. Sputum cultures positive for Mariaelena albicans. Urine and blood cultures show no growth. She remains on antibiotics with Rocephin, Levaquin. Continues on Symbicort, continues on steroids 60 mg every 6 hours. Overall some modest improvement was noted. On 08/18/2017 patient seen in follow-up on selective care unit. She remains on AIRVO at 25 L/m, with O2 sat at 86%. She is awake, alert, responds appropriately. Does not appear to be in any acute distress, but remains persistently hypoxemic. Otherwise remains afebrile, hemodynamically stable. Repeat CTA chest was done today, results showed no evidence of pulmonary embolism, and increasing basilar patchy infiltrates and areas of compressive atelectasis. Large fixed hiatal hernia was seen again, and the pulmonary nodule in the left upper lobe measuring 8.6 mm with slightly irregular margins that will have to be followed up on. Hilar structures showed no evidence of a mass. Patient has been diuresed on Lasix, and has now developed significant metabolic alkalosis, with CO2 at 52 on labs from 08/16/2017. Blood gases were ordered and reviewed, pH 7.61, pCO2 is 51, pO2 is 51, and bicarb is 51, this was done and FiO2 of 60%. Patient has been off her anticoagulation since last week, we will resume her Lovenox at therapeutic dose. On 08/19/2017 seen in follow-up. Remains on AIRVO with FiO2 of 80%, satting 97% . Patient is resting comfortably in bed, somewhat somnolent, but arouses easily to verbal stimuli. She has percent, and 2 granddaughters present at the bedside. They're expressing concern over patient's ongoing persistent hypoxemia , overall medical debility. There was a long discussion patient's current condition. Today we obtained CTA chest, that showed no evidence of pulmonary embolism, but there are basilar patchy infiltrates with areas of compressive atelectasis. We had ordered pulmonary perfusion scan for possible shunt were explained patient's hypoxemia. But related to patient's poor respiratory status , and inability to lie flat for the test, we will wait till tomorrow. Patient did have a barium swallow evaluation that showed positive aspiration with thin liquids and multiple episodes of penetration with multiple consistencies. Echocardiogram on 2016 has been reviewed and showed EF 55-60%, with mild to moderate pulmonary hypertension, with mild to moderate right ventricular systolic pressure 46 mmHg. Bronchial washings show Mariaelena albicans. He is afebrile. Lung sounds are positive for expiratory wheezes on the left, and crackles over right lower base, patient still has a very congested loose cough, production of small amount of weight yellow sputum. Blood work has been reviewed, WBCs 15, hemoglobin stable at 10.7, serum sodium is 145, serum potassium is 2.6, carbon dioxide is elevated, carbon dioxide is 52, creatinine 0.90. Patient still has metabolic alkalosis, yesterday we gave 2 doses of Diamox, we will give 2 more doses today. We will correct the serum potassium with potassium replacement protocol. On 08/20/2017 patient seen in follow-up. Resting quietly in bed, in no acute distress. FiO2 is currently down to 70% per high flow nasal cannula, with AIRVO. O2 sat is at 92-93%. This will be further weaned down. Patient denies any worsening dyspnea, still has pretty significantly congested nonproductive cough. Lung sounds are positive for crackles over left lower lobe, some wheezes on posterior left lower lobe, diminished on the right. Overall patient states she feels slightly better. 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 Chest x-ray was reviewed, and he was clear, with minimal plate atelectasis at the left base. Patient remains on bedrest, has been very minimally active, has significant generalized weakness. She needs aggressive pulmonary toileting, incentive spirometer, chest physiotherapy. Continue present antibiotics, bronchial washings and sputum culture showed Mariaelena albicans. Today's lab work was reviewed, WBC remain at 15.4, stable hemoglobin at 10, serum sodium is up to 147, serum potassium is 2.8 , chloride is 94, Avonex is 49, BUN is 43, and creatinine is 1. Her potassium is being corrected per protocol. Yesterday we started patient on meropenem to broaden her antibiotic coverage in addition to her fluconazole for the evidence of Mariaelena in her bronchial washings and sputum. Hemodynamically patient remains stable. Still unable to travel down to the nuclear medicine department for the pulmonary perfusion scan, as well as her repeat MBS study. She had previously was noted to be aspirating on thin liquids during the previous MBS study from 08/12/2017. For that reason patient has been initiated on nectar thick liquids. Extensive discussion was held with the patient's son and [id number], as well as the attending physician about the patient's ongoing hypoxia. On 08/21/2017 patient seen in the selective care floor. ABGs from this morning were reviewed, showing improvement of metabolic alkalosis, hypoxemia. PH was 7.56, pCO2 is 46, pO2 was 81, this was done and FiO2 of 60%. The FiO2 was weaned down to 55%. Lab work shows his sodium 148, serum potassium is 3.1, carbon dioxide is down to 46, BUN is 42, creatinine 0.83. Patient's chest x- ray was reviewed, shows chronic changes without evidence of any acute pulmonary disease. Patient is awake, alert, looking better today. She has been receiving CPT, incentive spirometer effort is 250-500 mL was. Continue with aggressive pulmonary toileting. Patient is too weak to get up out of bed. She is tolerating oral intake, currently on nectar thick liquids and soft diet. Vital signs are stable, patient remains afebrile. Lung sounds are positive for scattered rhonchi, still has some congested productive cough with small amount of clear sputum. Cardiology consult was requested in view of patient's hypoxemia. The plan is for patient to undergo bubble echo study at the bedside today. On 08/22/2017 the patient is being seen in follow-up follow-up. Patient is doing essentially the same as yesterday. Oxygen flows at 50 L/m nasal cannula to maintain a saturation above 90%. She is using incentive spirometer. She has a congested cough that she is unable to bring up much of sputum. She is still pulling very low volumes and I asked. CPT is being done to her chest. Cardiology repeated echocardiogram and the patient has a preserved LV function. Her repeat chest x-ray from today shows COPD and mild cardiomegaly. There is some scarring versus atelectasis in left lung base. No other acute inflammatory is otherwise are noted. Oral intake is diminished. The patient is quite weak. She remains on Lovenox for bilateral lower extremity DVT. Objective - Vital Signs Vital signs: Vital Signs Temp 97 F L 08/22/17 08:00 Pulse 82 08/22/17 12:00 Resp 19 08/22/17 12:00 BP 137/68 08/22/17 12:00 Pulse Ox 93 L 08/22/17 12:00 Intake & Output 08/21/17 08/22/17 08/22/17 18:59 06:59 18:59 Intake Total 960 400 90 Balance 960 400 90 Weight 57.5 kg 58 kg Intake: Intake, IV Titration 500 400 Amount Meropenem 1 gm In Sodium 100 Chloride 0.9% 100 ml @ 200 mls/hr IVPB Q8HR JASON Rx#:[id number] Sodium Chloride 0.45% 1, 400 400 000 ml @ 50 mls/hr IV . Q20H JASON Rx#:[id number] Oral 460 90 Other: Voiding Method Bedpan # Voids 3 4 0 # Bowel Movements 2 3 0 - Exam GENERAL EXAM: Alert, fairly comfortable in no apparent distress. Currently is on AIRVO at 55 l/min, FiO2 of 70%. HEAD: Normocephalic. EYES: Normal reaction of pupils, equal size. NOSE: Clear with pink turbinates. THROAT: No erythema or exudates. NECK: No masses, no JVD. CHEST: No chest wall deformity. LUNGS: Equal air entry, diminished at the bases, and a few scattered rhonchi. Loose congested productive cough. CVS: S1 and S2 normal with no audible murmur, regular rhythm. ABDOMEN: No hepatosplenomegaly, normal bowel sounds, no guarding or rigidity. SPINE: No scoliosis or deformity SKIN: No rashes CENTRAL NERVOUS SYSTEM: No focal deficits, tone is normal in all 4 extremities. EXTREMITIES: There is no peripheral edema. No clubbing, no cyanosis. Peripheral pulses are intact. - Labs CBC & Chem 7: 08/20/17 04:40 08/21/17 06:04 Labs: Abnormal Lab Results - Last 24 Hours (Table) 08/21/17 08/21/17 08/22/17 Range/Units 16:41 20:20 05:51 POC Glucose (mg/dL) 183 H 283 H 168 H (75-99) mg/dL 08/22/17 Range/Units 11:50 POC Glucose (mg/dL) 223 H (75-99) mg/dL Assessment and Plan Plan: Impression: 1 severe hypoxic respiratory failure requiring high flow oxygen at 15 L per minute nasal cannula. The patient has chronic hypoxic respiratory failure however there has been obvious acute decompensation causing worsening in the oxygenation. As such further workup including a CAT scan of the chest was done that showed no evidence of any pulmonary embolism. There is bilateral lower lobe pulmonary infiltrates/pneumonia and atelectasis. Patient is being treated with broad-spectrum antibiotics. Also the patient was found to have lower extremity DVT bilaterally and currently she is on therapeutic dose of Lovenox. Also the patient is being aggressively given CPT and pulmonary toileting and use of incentive spirometer regarding mucous plugs and chest congestion. A previous bronchoscopies yielded no significant microbial cultures. The patient is quite debilitated. She is quite weak. She is having a poor effort on the incentive spirometer. We will try to wean down the FiO2 as tolerated. She is also and accommodation bronchodilators and systemic steroids. Her most recent chest x-ray from today shows no acute abnormalities 2 recent history of left lower lobe pneumonia, healthcare acquired, resolved, and workup on her last admission for pulmonary embolism was negative. 3 history of left hip fracture requiring hemiarthroplasty, Coumadin is currently on hold 4 history of hypertension 5 history of chronic ongoing tobacco dependence. 6 possible aspiration pneumonia, although the findings could be related to her recent episode of extensive pneumonia involving the left lung. That is the findings could be postinflammatory in nature. But the patient is truly a high risk for aspiration. And she has a large hiatal hernia noted on the CT of the chest. She did have a modified barium swallow on 08/11/2017 showed aspiration with thin liquids, and multiple episodes of penetration with multiple consistencies. 7 chronic metabolic alkalosis exacerbated further by use of diuresis currently on Diamox. Recommendation: Continue following this patient. Continue same treatment. Aggressive pulmonary toileting. Wean down FiO2 as tolerated. The patient was placed on Diamox for metabolic alkalosis and this will be discontinued tomorrow. We'll repeat labs in a.m. We'll continue to follow.
--- NOTE | 2017-08-22 14:50 | PN ---
PROGRESS NOTE Ms. Varma is a 76-year-old female who presented with symptoms of progressive dyspnea. She is status post hip surgery. She has a history of obstructive lung disease. Her left ventricular systolic function has been normal in the past. She is feeling slightly better today and is anxious to leave the hospital. She denies any symptoms of chest pain. She denies any dizziness or palpitation. She continues to be congested. She continues to be at this time on amlodipine 5 mg daily, aspirin once a day, losartan 12 .5 mg daily, methylprednisolone, metoprolol tartrate 25 mg twice a day and Aldactone 50 mg daily. PHYSICAL EXAMINATION: Blood pressure 137/60 with a heart in the 80s. LUNGS: With decreased air exchange. No wheezes. HEART: Regular rhythm S1, S2. No S3. No rub appreciated with a systolic murmur. ABDOMEN: Soft, nontender. EXTREMITIES: No significant edema. LAB DATA: Lab data revealed a BUN and creatinine 42 and 0.8. Potassium 3.1, that was yesterday. She had a chest x-ray today that showed COPD and mild cardiomegaly. IMPRESSION: 1. Hypoxemia, probably related to chronic obstructive pulmonary disease. There is no clear evidence to suggest congestive heart failure and fluid overload at this point. The patient had a preserved systolic function. 2. History of chronic obstructive pulmonary disease and prior history of chronic tobacco use. 3. Status post left hip hemiarthroplasty. 4. History of hypertension. RECOMMENDATION: From the cardiac standpoint, we will continue on the present medical regimen. She has been seen by Dr. Rodriguez. We will follow her renal function and electrolytes closely and depending on her progress, further recommendation will be made. She will undergo bubble study to rule out any intracardiac shunting. MMODL / IJN: [id number] /
--- NOTE | 2017-08-22 15:11 | PN ---
PROGRESS NOTE DATE OF SERVICE: 08/22/2017 Her age is 76 years old and . Patient is seen today and evaluated and currently discussed with her the plan. Currently, today her temperature was 97 axillary at the time of seeing her, blood pressure 137/68, and mean pressure 91. Currently she is on oxygen high flow 50% and the pulse ox is 93, and she is in the process of weaning by Dr. Rodriguez, pulmonary, with the high-flow oxygen. On the laboratories she has ABGs today. The last one was done not today but yesterday and her pH was 7.56, and with the respiratory alkalosis with the pCO2 46 and the PO2 81 and the saturation was 97.1, and she was on the high-flow of 60 and the cut her down to the 50. Her electrolyte was indicating the sodium that was and this ABGs was on the August 21 and we do not have any added. On the physical examination the patient was conscious, alert, and she is still suffering from the hypoxemia is severe and she had also a chest x-ray today and chest x- ray showed COPD, mild cardiomegaly, scarring versus atelectasis in the left lung base. The patient also seen by Dr. Rodriguez, the Pulmonary as well as the Cardiology, Dr. Weinstein. The pulmonary standpoint impression is of severe hypoxic respiratory failure with the high-flow oxygen at 15 L/minute with nasal cannula. The patient has also chronic hypoxic respiratory failure and obvious acute decompensation with worsening of her oxygenation. No evidence of pulmonary embolism and she had bilateral lower lobe pulmonary infiltrate pneumonia, atelectasis was questionable and she is treated with the antibiotic broad spectrum as well as Lovenox. She has pulmonary toileting, use incentive spirometry regarding the mucus secretion with the plugs and chest congestion. She has the previous bronchoscopy with no significant antimicrobial and the patient is quite debilitated, quite weak and she is having poor effort on the incentive spirometry and we tried to wean her of the FiO2 as tolerated. She had bronchodilator as well as systemic steroid. She had recent history of lower lobe pneumonia and she had history of left hip fracture with requiring hemiarthroplasty. The Coumadin is has been suspended, but she is on Lovenox twice a day for the underlying chronic DVT. She has a history of hypertension and history of tobacco use. She had underlying aspiration pneumonia could not be excluded, but currently she is resolved. She has a chronic metabolic alkalosis and she is on Diamox versus respiratory alkalosis. Currently pulmonary tried weaning her off. PHYSICAL EXAMINATION: Patient is conscious, alert. HEENT was negative. Neck was supple and she had bilateral rhonchi of the chest and the heart was regular sinus rhythm and the abdomen was soft. Positive bowel sounds. She had a bowel movement yesterday and the day before, and she had the enema the day before requested by the patient. EXTREMITIES: No edema and we have bilateral chronic DVT. PLAN: The finding as mentioned above and the plan is continuing the respiratory maintenance and weaning her of the oxygen. No other data to indicate doing any more procedures. She is a diabetic and diabetes controlled with insulin coverage. We will plan for a CBC with differential in a.m. MMODL / IJN: [id number] /
[2017-08-22 15:39] LABS: ALT 77 U/L (9-52); AST 34 U/L (14-36); Albumin 2.7 g/dL (3.5-5.0); Alkaline Phosphatase 67 U/L (38-126); Anion Gap 4 mmol/L; Blood Urea Nitrogen 38 mg/dL (7-17); Calcium 9.3 mg/dL (8.4-10.2); Carbon Dioxide 39 mmol/L (22-30); Chloride 107 mmol/L (98-107); Glucose 140 mg/dL (74-99); Potassium 3.8 mmol/L (3.5-5.1); Sodium 150 mmol/L (137-145); Total Bilirubin 0.4 mg/dL (0.2-1.3); Total Protein 5.1 g/dL (6.3-8.2)
[2017-08-22 17:05] LABS: Glucose,Whole Blood 189 mg/dL (75-99)
[2017-08-22 20:51] LABS: Glucose,Whole Blood 153 mg/dL (75-99)
[2017-08-22] MEDS: amLODIPine 5 MG TAB PO SCH (22:03)
[2017-08-23] MEDS: MEROPENEM 1 GM in SODIUM CHLORIDE 0.9% 100 ML IVPB SCH ×4 (00:17→23:31)
[2017-08-23] MEDS: methylPREDNISolone SOD SUCCI 40 MG/ML 1 ML VIAL IV SCH ×5 (00:17→23:24)
[2017-08-23] MEDS: ALBUTEROL NEBULIZED 2.5 MG/3 ML INHALATION PRN (04:31)
[2017-08-23] MEDS ORDERED: ONDANSETRON 4 MG/2 ML VIAL IVP PRN (05:59)
[2017-08-23] MEDS: ENOXAPARIN 60 MG/0.6 ML SYRINGE SQ SCH ×2 (06:12→17:40)
[2017-08-23] MEDS: PANTOPRAZOLE 40 MG TABLET PO SCH (06:13)
[2017-08-23 06:15] LABS: Glucose,Whole Blood 317 mg/dL (75-99)
[2017-08-23] MEDS: SODIUM CHLORIDE 0.45% 1,000 ML IV SCH (06:18)
[2017-08-23] MEDS: INSULIN ASPART 100 UNIT/ML 1 ML 10 ML VIAL SQ SCH ×4 (06:24→22:07)
--- NOTE | 2017-08-23 07:14 | XR ---
EXAMINATION TYPE: XR chest 1V portable DATE OF EXAM: 08/23/2017 HISTORY: follow up bilateral infiltrates. REFERENCE: Previous study dated 08/22/2017. FINDINGS: Lung volumes are prominent. Heart size upper limits of normal. There is a left basilar infi ltrate. There is a small left effusion. IMPRESSION: 1. COPD. 2. BORDERLINE CARDIOMEGALY. 3. WORSENING LEFT BASILAR INFILTRATE WITH A SMALL ASSOCIATED EFFUSION.
[2017-08-23 07:31] LABS: Anion Gap 5 mmol/L; Blood Urea Nitrogen 36 mg/dL (7-17); Carbon Dioxide 36 mmol/L (22-30); Chloride 107 mmol/L (98-107); Glucose 292 mg/dL (74-99); Potassium 3.7 mmol/L (3.5-5.1); Sodium 148 mmol/L (137-145)
[2017-08-23] MEDS: FORMOTEROL FUMARATE 20 MCG/2 ML NEBU INHALATION SCH ×2 (07:55→20:30)
[2017-08-23] MEDS: IPRATROPIUM-ALBUTEROL 3 ML NEB INHALATION SCH ×4 (07:55→20:30)
[2017-08-23] MEDS: BUDESONIDE 1 MG/2 ML NEBU INHALATION SCH ×2 (07:55→20:30)
[2017-08-23] MEDS: ASPIRIN 81 MG PO SCH (08:27)
[2017-08-23] MEDS: POTASSIUM CHLORIDE ER 20 MEQ TAB.ER PO SCH ×2 (08:27→22:07)
[2017-08-23] MEDS: SPIRONOLACTONE 25 MG TAB PO SCH (08:27)
[2017-08-23] MEDS: LOSARTAN 25 MG TAB PO SCH (08:28)
[2017-08-23] MEDS: METOPROLOL TARTRATE 25 MG TAB PO SCH ×2 (08:28→22:03)
[2017-08-23] MEDS: SENNOSIDES-DOCUSATE SODIUM 1 EACH TAB PO SCH ×2 (08:28→22:03)
[2017-08-23] MEDS: IRON AG/C/B12/CA/SUC.ACID/STOM 1 EACH TAB PO SCH (08:28)
[2017-08-23] MEDS: FLUCONAZOLE 100 MG TAB PO SCH (08:28)
[2017-08-23 12:11] LABS: Glucose,Whole Blood 202 mg/dL (75-99)
--- NOTE | 2017-08-23 12:24 | PN ---
PROGRESS NOTE DATE OF SERVICE: August 23, 2017 She is a 76-year-old white female, . Patient is seen today and evaluated and she is still on high-flow oxygen. In spite that, she gradually weaning it off. Currently on the vital signs is indicating that her temperature was 99.5 and axillary. She also had the pulse rate 91, respiratory rate 22, and blood pressure was 126/60 with a mean 82. Her oxygen level on rate 35, and FiO2 of 43. She is 89-88. Thus, her electrolytes today indicating sodium 148. She is still hypernatremic. Potassium 3.7, chloride 107, carbon dioxide 36, an anion gap of 5, BUN of 36, and creatinine 0.61 with a estimated glomerular filtration rate for non- more than 60. Her blood sugar 90-92, but she is on steroids as well and she is diabetic. Calcium is 9.3, and her AST was 34, but that is on August 22 with the ALT as 77 and alkaline phosphatase 67, total protein 5.1, and albumin was 2.7. Questionable the protein calorie deficiency is mild, considered and we will obtain prealbumin. On the examination, she had a chest x-ray today and the chest x-ray was indicating that COPD, cardiomegaly, borderline worsening of the left basilar infiltrate with the small association of effusion. EXAMINATION: Patient is conscious and she is alert and she has a high flow of oxygen. She has a mild mouth breathing and the tongue was dry. The chest was crackling bilateral probably may need deep suction. The heart was regular sinus rhythm. The abdomen was soft, nontender, positive bowel sounds. EXTREMITIES: No edema. ASSESSMENT: 1. She has underlying cough, severe hypoxic respiratory, severe hypoxic respiratory failure and requiring high-flow oxygen and the Pulmonary Dr. Rodriguez has been trying to wean her off, but the response is very complicated in the patient history. He has been taken all the precautions and we are following his recommendation. 2. She is also on the Lovenox as well for underlying DVT chronic bilaterally. 3. She is a diabetic with hyperglycemia, covered with insulin to scale. 4. Underlying aspiration could not be proven and the repeat the test could not be done because of her generalized weakness. We will try in the weekdays if we able to repeat the aspiration as suspicious for her recurrent high-flow oxygen and hypoxia. 5. No evidence of diarrhea at this point, and she is on antibiotic. 6. Her blood pressure is controlled and she is on meropenem 1 g and every 8 hours. She is also on inhalation therapy. She is on Lovenox q.12 hours as well and she is on losartan 12.5, JESI inhibitor as well and beta blockers and potassium replacement added to the Spironolactone. She is also on a PPI, pantoprazole as well. We will continue home followup and will see her next week if able to repeat the speech evaluation with modified barium swallow. MMODL / IJN: [id number] /
--- NOTE | 2017-08-23 13:46 | P.PN ---
Subjective Progress Note Date: 08/23/17 This is a 68-year-old female who is quite familiar to my service, I saw this patient until on her last admission for shortness of breath which was felt to be related to COPD and pneumonia involving the left lower lobe. Patient was treated and she was eventually discharged home. During her last admission, she was also worked up for pulmonary embolism, and the workup was negative. Patient had hip surgery, and she remains on anticoagulation therapy in the form of within which is therapeutic with INR of 2.5 today. Patient also describes intermittent episodes of cough, and she was noted to have low pulse oximetry before she came into the ER were and her pulse oximetry was in the 60s. Patient was placed on a nonrebreather, and as she was transferred to [facility], she was placed on BiPAP, and ABG was done while on BiPAP. Her BiPAP settings were on the percent FiO2, IPAP of 12 and EPAP of 5. ABG on Zosyn in showed a pO2 of 220 pCO2 of 51 pH of 7.44. Hence the patient will be switched from BiPAP to a nasal cannula. Chest x-ray on this admission showed no evidence of active disease. Patient denies any headaches, no blurred vision no dizziness, no fever, no chills, no hemoptysis, no chest pain. No nausea no vomiting no abdominal pain, she was mostly complaining of shortness of breath. Patient was reevaluated today on 08/10/2017, she is presently on nasal cannula, high flow, doing much better compared to how she felt yesterday. I reviewed the CT of the chest, there is no evidence of pulmonary embolism. There is evidence of postinflammatory changes noted in the left lower lobe, and to some extent some areas of pneumonitis in the left upper lobe, could be residual from her last episode of pneumonia, or could be related to rule he to aspiration pneumonia since the patient is a high risk for aspiration, not to mention that the patient has a large hiatal hernia. Considering this, patient may have to have further GI evaluations, possibly a modified barium swallow, possibly even EGD. In the meantime continue antibiotics for possible aspiration pneumonia. Clinically I feel the findings are mostly postinflammatory from the recent extensive left sided pneumonia for which the patient was treated. These findings were not appreciated on the chest x-ray, but clearly seen on the CT of the chest which is more sensitive. On 08/11/2017 patient is doing well, her FiO2 is currently at 8 L per high flow nasal cannula with O2 sat at 96%. She remains afebrile since admission. Her vital signs are stable, hemodynamics are stable. Lung sounds are positive for some scattered rhonchi, she still has a congested cough. Able to expectorate some white-yellow sputum. Sputum cultures positive for Mariaelena albicans. Urine and blood cultures show no growth. She remains on antibiotics with Rocephin, Levaquin. Continues on Symbicort, continues on steroids 60 mg every 6 hours. Overall some modest improvement was noted. On 08/18/2017 patient seen in follow-up on selective care unit. She remains on AIRVO at 25 L/m, with O2 sat at 86%. She is awake, alert, responds appropriately. Does not appear to be in any acute distress, but remains persistently hypoxemic. Otherwise remains afebrile, hemodynamically stable. Repeat CTA chest was done today, results showed no evidence of pulmonary embolism, and increasing basilar patchy infiltrates and areas of compressive atelectasis. Large fixed hiatal hernia was seen again, and the pulmonary nodule in the left upper lobe measuring 8.6 mm with slightly irregular margins that will have to be followed up on. Hilar structures showed no evidence of a mass. Patient has been diuresed on Lasix, and has now developed significant metabolic alkalosis, with CO2 at 52 on labs from 08/16/2017. Blood gases were ordered and reviewed, pH 7.61, pCO2 is 51, pO2 is 51, and bicarb is 51, this was done and FiO2 of 60%. Patient has been off her anticoagulation since last week, we will resume her Lovenox at therapeutic dose. On 08/19/2017 seen in follow-up. Remains on AIRVO with FiO2 of 80%, satting 97% . Patient is resting comfortably in bed, somewhat somnolent, but arouses easily to verbal stimuli. She has percent, and 2 granddaughters present at the bedside. They're expressing concern over patient's ongoing persistent hypoxemia , overall medical debility. There was a long discussion patient's current condition. Today we obtained CTA chest, that showed no evidence of pulmonary embolism, but there are basilar patchy infiltrates with areas of compressive atelectasis. We had ordered pulmonary perfusion scan for possible shunt were explained patient's hypoxemia. But related to patient's poor respiratory status , and inability to lie flat for the test, we will wait till tomorrow. Patient did have a barium swallow evaluation that showed positive aspiration with thin liquids and multiple episodes of penetration with multiple consistencies. Echocardiogram on 2016 has been reviewed and showed EF 55-60%, with mild to moderate pulmonary hypertension, with mild to moderate right ventricular systolic pressure 46 mmHg. Bronchial washings show Mariaelena albicans. He is afebrile. Lung sounds are positive for expiratory wheezes on the left, and crackles over right lower base, patient still has a very congested loose cough, production of small amount of weight yellow sputum. Blood work has been reviewed, WBCs 15, hemoglobin stable at 10.7, serum sodium is 145, serum potassium is 2.6, carbon dioxide is elevated, carbon dioxide is 52, creatinine 0.90. Patient still has metabolic alkalosis, yesterday we gave 2 doses of Diamox, we will give 2 more doses today. We will correct the serum potassium with potassium replacement protocol. On 08/20/2017 patient seen in follow-up. Resting quietly in bed, in no acute distress. FiO2 is currently down to 70% per high flow nasal cannula, with AIRVO. O2 sat is at 92-93%. This will be further weaned down. Patient denies any worsening dyspnea, still has pretty significantly congested nonproductive cough. Lung sounds are positive for crackles over left lower lobe, some wheezes on posterior left lower lobe, diminished on the right. Overall patient states she feels slightly better. 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 Chest x-ray was reviewed, and he was clear, with minimal plate atelectasis at the left base. Patient remains on bedrest, has been very minimally active, has significant generalized weakness. She needs aggressive pulmonary toileting, incentive spirometer, chest physiotherapy. Continue present antibiotics, bronchial washings and sputum culture showed Mariaelena albicans. Today's lab work was reviewed, WBC remain at 15.4, stable hemoglobin at 10, serum sodium is up to 147, serum potassium is 2.8 , chloride is 94, Avonex is 49, BUN is 43, and creatinine is 1. Her potassium is being corrected per protocol. Yesterday we started patient on meropenem to broaden her antibiotic coverage in addition to her fluconazole for the evidence of Mariaelena in her bronchial washings and sputum. Hemodynamically patient remains stable. Still unable to travel down to the nuclear medicine department for the pulmonary perfusion scan, as well as her repeat MBS study. She had previously was noted to be aspirating on thin liquids during the previous MBS study from 08/12/2017. For that reason patient has been initiated on nectar thick liquids. Extensive discussion was held with the patient's son and [id number], as well as the attending physician about the patient's ongoing hypoxia. On 08/21/2017 patient seen in the selective care floor. ABGs from this morning were reviewed, showing improvement of metabolic alkalosis, hypoxemia. PH was 7.56, pCO2 is 46, pO2 was 81, this was done and FiO2 of 60%. The FiO2 was weaned down to 55%. Lab work shows his sodium 148, serum potassium is 3.1, carbon dioxide is down to 46, BUN is 42, creatinine 0.83. Patient's chest x- ray was reviewed, shows chronic changes without evidence of any acute pulmonary disease. Patient is awake, alert, looking better today. She has been receiving CPT, incentive spirometer effort is 250-500 mL was. Continue with aggressive pulmonary toileting. Patient is too weak to get up out of bed. She is tolerating oral intake, currently on nectar thick liquids and soft diet. Vital signs are stable, patient remains afebrile. Lung sounds are positive for scattered rhonchi, still has some congested productive cough with small amount of clear sputum. Cardiology consult was requested in view of patient's hypoxemia. The plan is for patient to undergo bubble echo study at the bedside today. On 08/22/2017 the patient is being seen in follow-up follow-up. Patient is doing essentially the same as yesterday. Oxygen flows at 50 L/m nasal cannula to maintain a saturation above 90%. She is using incentive spirometer. She has a congested cough that she is unable to bring up much of sputum. She is still pulling very low volumes and I asked. CPT is being done to her chest. Cardiology repeated echocardiogram and the patient has a preserved LV function. Her repeat chest x-ray from today shows COPD and mild cardiomegaly. There is some scarring versus atelectasis in left lung base. No other acute inflammatory is otherwise are noted. Oral intake is diminished. The patient is quite weak. She remains on Lovenox for bilateral lower extremity DVT. On 08/23/2017 the patient is essentially the same a clinical grounds. From the respiratory standpoint, the patient has been weaned down to 30 L of oxygen high flow. She is having rest or secretions and cough and congestion. She is receiving vibration therapy and CPT to her chest. She is utilizing the incentive spirometer aggressively. She is on Lovenox for DVT treatment of the lower extremities bilaterally. She is on bronchodilators. She is on systemic steroids. She is weak. She is taking her diet very carefully and there is no noted aspiration at this point. Family is at the bedside. No other significant events overnight. There has been steady and slow improvement in the oxygenation over the past 3-4 days. Objective - Vital Signs Vital signs: Vital Signs Temp 99.5 F 08/23/17 08:00 Pulse 78 08/23/17 12:00 Resp 22 08/23/17 12:00 BP 128/62 08/23/17 12:00 Pulse Ox 92 L 08/23/17 12:00 Intake & Output 08/22/17 08/23/17 08/23/17 18:59 06:59 18:59 Intake Total 890 100 Balance 890 100 Weight 60 kg Intake: IV 600 50 0.9 NS 50 Sodium Chloride 0.9% 1, 600 000 ml @ 100 mls/hr IV . Q10H JASON Rx#:[id number] Intake, IV Titration 100 Amount Meropenem 1 gm In Sodium 100 Chloride 0.9% 100 ml @ 200 mls/hr IVPB Q8HR JASON Rx#:[id number] Oral 190 50 Other: # Voids 1 1 1 # Bowel Movements 0 - Exam GENERAL EXAM: Alert, fairly comfortable in no apparent distress. Currently is on AIRVO at 55 l/min, FiO2 of 70%. HEAD: Normocephalic. EYES: Normal reaction of pupils, equal size. NOSE: Clear with pink turbinates. THROAT: No erythema or exudates. NECK: No masses, no JVD. CHEST: No chest wall deformity. LUNGS: Equal air entry, diminished at the bases, and a few scattered rhonchi. Loose congested productive cough. CVS: S1 and S2 normal with no audible murmur, regular rhythm. ABDOMEN: No hepatosplenomegaly, normal bowel sounds, no guarding or rigidity. SPINE: No scoliosis or deformity SKIN: No rashes CENTRAL NERVOUS SYSTEM: No focal deficits, tone is normal in all 4 extremities. EXTREMITIES: There is no peripheral edema. No clubbing, no cyanosis. Peripheral pulses are intact. - Labs CBC & Chem 7: 08/20/17 04:40 08/23/17 06:24 Labs: Abnormal Lab Results - Last 24 Hours (Table) 08/22/17 08/22/17 08/22/17 Range/Units 15:25 16:40 20:32 Sodium 150 H (137-145) mmol/L Carbon Dioxide 39 H (22-30) mmol/L BUN 38 H (7-17) mg/dL Glucose 140 H (74-99) mg/dL POC Glucose (mg/dL) 189 H 153 H (75-99) mg/dL ALT 77 H (9-52) U/L Total Protein 5.1 L (6.3-8.2) g/dL Albumin 2.7 L (3.5-5.0) g/dL 08/23/17 08/23/17 08/23/17 Range/Units 06:07 06:24 11:37 Sodium 148 H (137-145) mmol/L Carbon Dioxide 36 H (22-30) mmol/L BUN 36 H (7-17) mg/dL Glucose 292 H (74-99) mg/dL POC Glucose (mg/dL) 317 H 202 H (75-99) mg/dL ALT (9-52) U/L Total Protein (6.3-8.2) g/dL Albumin (3.5-5.0) g/dL Assessment and Plan Plan: Impression: 1 severe hypoxic respiratory failure requiring high flow oxygen at 15 L per minute nasal cannula. The patient has chronic hypoxic respiratory failure however there has been obvious acute decompensation causing worsening in the oxygenation. As such further workup including a CAT scan of the chest was done that showed no evidence of any pulmonary embolism. There is bilateral lower lobe pulmonary infiltrates/pneumonia and atelectasis. Patient is being treated with broad-spectrum antibiotics. Also the patient was found to have lower extremity DVT bilaterally and currently she is on therapeutic dose of Lovenox. Also the patient is being aggressively given CPT and pulmonary toileting and use of incentive spirometer regarding mucous plugs and chest congestion. A previous bronchoscopies yielded no significant microbial cultures. The patient is quite debilitated. She is quite weak. She is having a poor effort on the incentive spirometer. We will try to wean down the FiO2 as tolerated. She is also and accommodation bronchodilators and systemic steroids. Her most recent chest x-ray from today shows no acute abnormalities On 08/23/2016, the patient is gradually improving in terms of her oxygenation, and she is currently at 30 L/m nasal cannula. We are continuing the same aggressive pulmonary toileting, bronchodilator therapy, steroid therapy and antibiotic therapy. 2 recent history of left lower lobe pneumonia, healthcare acquired, resolved, and workup on her last admission for pulmonary embolism was negative. 3 history of left hip fracture requiring hemiarthroplasty, Coumadin is currently on hold 4 history of hypertension 5 history of chronic ongoing tobacco dependence. 6 possible aspiration pneumonia, although the findings could be related to her recent episode of extensive pneumonia involving the left lung. That is the findings could be postinflammatory in nature. But the patient is truly a high risk for aspiration. And she has a large hiatal hernia noted on the CT of the chest. She did have a modified barium swallow on 08/11/2017 showed aspiration with thin liquids, and multiple episodes of penetration with multiple consistencies. 7 chronic metabolic alkalosis treated with Diamox and the bicarb level is down to 36. Recommendation: Continue following this patient. Continue same treatment. Aggressive pulmonary toileting. Wean down FiO2 as tolerated. The metabolic acidosis alkalosis has recovered and the patient will be taken off Diamox for now.
--- NOTE | 2017-08-23 15:57 | PN ---
PROGRESS NOTE Ms. Varma is a 76-year-old female who had progressive symptoms of dyspnea and hypoxemia. She underwent echocardiogram with bubble study that revealed no evidence of shunting. She is feeling well. She is tired the times, sleepy, but no chest pain. She has no arrhythmia. No dizziness or palpitation. She continues to be at this time on amlodipine 5 mg daily, aspirin 81 mg daily, Lovenox subcu, losartan 12.5 mg daily, Protonix, Spironolactone 50 mg daily, metoprolol tartrate 25 mg twice a day. PHYSICAL EXAMINATION: Blood pressure 128/60 with a heart in 70. LUNGS: With decreased air exchange. No wheezes or rales. HEART: Regular rhythm S1, S2. No S3. No rub. ABDOMEN: Soft, nontender. EXTREMITIES: No significant edema. LAB DATA: BUN and creatinine of 36 and 0.6, potassium 3.7. IMPRESSION: 1. Respiratory failure, improving. No evidence of intracardiac shunting. 2. History of hypertension. 3. Chronic obstructive lung disease and chronic tobacco use. 4. Status post left hip hemiarthroplasty. RECOMMENDATION: From the cardiac standpoint, she is stable. We will see her on as needed basis. Please feel free to call us for any questions. MMODL / IJN: [id number] /
[2017-08-23 17:47] LABS: Glucose,Whole Blood 194 mg/dL (75-99)
[2017-08-23] MEDS: amLODIPine 5 MG TAB PO SCH (22:03)
[2017-08-23 22:38] LABS: Glucose,Whole Blood 177 mg/dL (75-99)
[2017-08-24] MEDS: ALBUTEROL NEBULIZED 2.5 MG/3 ML INHALATION PRN ×2 (00:08→03:34)
[2017-08-24] MEDS: SODIUM CHLORIDE 0.45% 1,000 ML IV SCH ×2 (04:11→21:12)
[2017-08-24 05:52] LABS: Glucose,Whole Blood 178 mg/dL (75-99)
[2017-08-24] MEDS: methylPREDNISolone SOD SUCCI 40 MG/ML 1 ML VIAL IV SCH ×4 (06:35→23:35)
[2017-08-24] MEDS: ENOXAPARIN 60 MG/0.6 ML SYRINGE SQ SCH ×2 (06:35→17:31)
[2017-08-24] MEDS: INSULIN ASPART 100 UNIT/ML 1 ML 10 ML VIAL SQ SCH ×4 (06:35→21:13)
[2017-08-24] MEDS: PANTOPRAZOLE 40 MG TABLET PO SCH (06:36)
[2017-08-24] MEDS: FORMOTEROL FUMARATE 20 MCG/2 ML NEBU INHALATION SCH ×2 (08:49→20:51)
[2017-08-24] MEDS: BUDESONIDE 1 MG/2 ML NEBU INHALATION SCH ×2 (08:49→20:51)
[2017-08-24] MEDS: IPRATROPIUM-ALBUTEROL 3 ML NEB INHALATION SCH ×4 (08:49→20:51)
[2017-08-24] MEDS: METOPROLOL TARTRATE 25 MG TAB PO SCH ×2 (10:46→20:00)
[2017-08-24] MEDS: ASPIRIN 81 MG PO SCH (10:46)
[2017-08-24] MEDS: FLUCONAZOLE 100 MG TAB PO SCH (10:46)
[2017-08-24] MEDS: LOSARTAN 25 MG TAB PO SCH (10:46)
[2017-08-24] MEDS: SPIRONOLACTONE 25 MG TAB PO SCH (10:47)
[2017-08-24] MEDS: POTASSIUM CHLORIDE ER 20 MEQ TAB.ER PO SCH ×2 (10:47→20:00)
[2017-08-24] MEDS: SENNOSIDES-DOCUSATE SODIUM 1 EACH TAB PO SCH ×2 (10:47→20:00)
[2017-08-24] MEDS: IRON AG/C/B12/CA/SUC.ACID/STOM 1 EACH TAB PO SCH (10:49)
[2017-08-24] MEDS: MEROPENEM 1 GM in SODIUM CHLORIDE 0.9% 100 ML IVPB SCH ×3 (11:46→23:35)
[2017-08-24 12:10] LABS: Glucose,Whole Blood 222 mg/dL (75-99)
--- NOTE | 2017-08-24 12:14 | P.PN ---
Subjective Progress Note Date: 08/24/17 Principal diagnosis: acute left lower lobe pneumonia and COPD exacerbation, acute hypoxic respiratory failure This is a 68-year-old female who is quite familiar to my service, I saw this patient until on her last admission for shortness of breath which was felt to be related to COPD and pneumonia involving the left lower lobe. Patient was treated and she was eventually discharged home. During her last admission, she was also worked up for pulmonary embolism, and the workup was negative. Patient had hip surgery, and she remains on anticoagulation therapy in the form of within which is therapeutic with INR of 2.5 today. Patient also describes intermittent episodes of cough, and she was noted to have low pulse oximetry before she came into the ER were and her pulse oximetry was in the 60s. Patient was placed on a nonrebreather, and as she was transferred to [facility], she was placed on BiPAP, and ABG was done while on BiPAP. Her BiPAP settings were on the percent FiO2, IPAP of 12 and EPAP of 5. ABG on Zosyn in showed a pO2 of 220 pCO2 of 51 pH of 7.44. Hence the patient will be switched from BiPAP to a nasal cannula. Chest x-ray on this admission showed no evidence of active disease. Patient denies any headaches, no blurred vision no dizziness, no fever, no chills, no hemoptysis, no chest pain. No nausea no vomiting no abdominal pain, she was mostly complaining of shortness of breath. Patient was reevaluated today on 08/10/2017, she is presently on nasal cannula, high flow, doing much better compared to how she felt yesterday. I reviewed the CT of the chest, there is no evidence of pulmonary embolism. There is evidence of postinflammatory changes noted in the left lower lobe, and to some extent some areas of pneumonitis in the left upper lobe, could be residual from her last episode of pneumonia, or could be related to rule he to aspiration pneumonia since the patient is a high risk for aspiration, not to mention that the patient has a large hiatal hernia. Considering this, patient may have to have further GI evaluations, possibly a modified barium swallow, possibly even EGD. In the meantime continue antibiotics for possible aspiration pneumonia. Clinically I feel the findings are mostly postinflammatory from the recent extensive left sided pneumonia for which the patient was treated. These findings were not appreciated on the chest x-ray, but clearly seen on the CT of the chest which is more sensitive. On 08/11/2017 patient is doing well, her FiO2 is currently at 8 L per high flow nasal cannula with O2 sat at 96%. She remains afebrile since admission. Her vital signs are stable, hemodynamics are stable. Lung sounds are positive for some scattered rhonchi, she still has a congested cough. Able to expectorate some white-yellow sputum. Sputum cultures positive for Mariaelena albicans. Urine and blood cultures show no growth. She remains on antibiotics with Rocephin, Levaquin. Continues on Symbicort, continues on steroids 60 mg every 6 hours. Overall some modest improvement was noted. On 08/18/2017 patient seen in follow-up on selective care unit. She remains on AIRVO at 25 L/m, with O2 sat at 86%. She is awake, alert, responds appropriately. Does not appear to be in any acute distress, but remains persistently hypoxemic. Otherwise remains afebrile, hemodynamically stable. Repeat CTA chest was done today, results showed no evidence of pulmonary embolism, and increasing basilar patchy infiltrates and areas of compressive atelectasis. Large fixed hiatal hernia was seen again, and the pulmonary nodule in the left upper lobe measuring 8.6 mm with slightly irregular margins that will have to be followed up on. Hilar structures showed no evidence of a mass. Patient has been diuresed on Lasix, and has now developed significant metabolic alkalosis, with CO2 at 52 on labs from 08/16/2017. Blood gases were ordered and reviewed, pH 7.61, pCO2 is 51, pO2 is 51, and bicarb is 51, this was done and FiO2 of 60%. Patient has been off her anticoagulation since last week, we will resume her Lovenox at therapeutic dose. On 08/19/2017 seen in follow-up. Remains on AIRVO with FiO2 of 80%, satting 97% . Patient is resting comfortably in bed, somewhat somnolent, but arouses easily to verbal stimuli. She has percent, and 2 granddaughters present at the bedside. They're expressing concern over patient's ongoing persistent hypoxemia , overall medical debility. There was a long discussion patient's current condition. Today we obtained CTA chest, that showed no evidence of pulmonary embolism, but there are basilar patchy infiltrates with areas of compressive atelectasis. We had ordered pulmonary perfusion scan for possible shunt were explained patient's hypoxemia. But related to patient's poor respiratory status , and inability to lie flat for the test, we will wait till tomorrow. Patient did have a barium swallow evaluation that showed positive aspiration with thin liquids and multiple episodes of penetration with multiple consistencies. Echocardiogram on 2016 has been reviewed and showed EF 55-60%, with mild to moderate pulmonary hypertension, with mild to moderate right ventricular systolic pressure 46 mmHg. Bronchial washings show Mariaelena albicans. He is afebrile. Lung sounds are positive for expiratory wheezes on the left, and crackles over right lower base, patient still has a very congested loose cough, production of small amount of weight yellow sputum. Blood work has been reviewed, WBCs 15, hemoglobin stable at 10.7, serum sodium is 145, serum potassium is 2.6, carbon dioxide is elevated, carbon dioxide is 52, creatinine 0.90. Patient still has metabolic alkalosis, yesterday we gave 2 doses of Diamox, we will give 2 more doses today. We will correct the serum potassium with potassium replacement protocol. On 08/20/2017 patient seen in follow-up. Resting quietly in bed, in no acute distress. FiO2 is currently down to 70% per high flow nasal cannula, with AIRVO. O2 sat is at 92-93%. This will be further weaned down. Patient denies any worsening dyspnea, still has pretty significantly congested nonproductive cough. Lung sounds are positive for crackles over left lower lobe, some wheezes on posterior left lower lobe, diminished on the right. Overall patient states she feels slightly better. 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 Chest x-ray was reviewed, and he was clear, with minimal plate atelectasis at the left base. Patient remains on bedrest, has been very minimally active, has significant generalized weakness. She needs aggressive pulmonary toileting, incentive spirometer, chest physiotherapy. Continue present antibiotics, bronchial washings and sputum culture showed Mariaelena albicans. Today's lab work was reviewed, WBC remain at 15.4, stable hemoglobin at 10, serum sodium is up to 147, serum potassium is 2.8 , chloride is 94, Avonex is 49, BUN is 43, and creatinine is 1. Her potassium is being corrected per protocol. Yesterday we started patient on meropenem to broaden her antibiotic coverage in addition to her fluconazole for the evidence of Mariaelena in her bronchial washings and sputum. Hemodynamically patient remains stable. Still unable to travel down to the nuclear medicine department for the pulmonary perfusion scan, as well as her repeat MBS study. She had previously was noted to be aspirating on thin liquids during the previous MBS study from 08/12/2017. For that reason patient has been initiated on nectar thick liquids. Extensive discussion was held with the patient's son and [id number], as well as the attending physician about the patient's ongoing hypoxia. On 08/21/2017 patient seen in the selective care floor. ABGs from this morning were reviewed, showing improvement of metabolic alkalosis, hypoxemia. PH was 7.56, pCO2 is 46, pO2 was 81, this was done and FiO2 of 60%. The FiO2 was weaned down to 55%. Lab work shows his sodium 148, serum potassium is 3.1, carbon dioxide is down to 46, BUN is 42, creatinine 0.83. Patient's chest x- ray was reviewed, shows chronic changes without evidence of any acute pulmonary disease. Patient is awake, alert, looking better today. She has been receiving CPT, incentive spirometer effort is 250-500 mL was. Continue with aggressive pulmonary toileting. Patient is too weak to get up out of bed. She is tolerating oral intake, currently on nectar thick liquids and soft diet. Vital signs are stable, patient remains afebrile. Lung sounds are positive for scattered rhonchi, still has some congested productive cough with small amount of clear sputum. Cardiology consult was requested in view of patient's hypoxemia. The plan is for patient to undergo bubble echo study at the bedside today. On 08/22/2017 the patient is being seen in follow-up follow-up. Patient is doing essentially the same as yesterday. Oxygen flows at 50 L/m nasal cannula to maintain a saturation above 90%. She is using incentive spirometer. She has a congested cough that she is unable to bring up much of sputum. She is still pulling very low volumes and I asked. CPT is being done to her chest. Cardiology repeated echocardiogram and the patient has a preserved LV function. Her repeat chest x-ray from today shows COPD and mild cardiomegaly. There is some scarring versus atelectasis in left lung base. No other acute inflammatory is otherwise are noted. Oral intake is diminished. The patient is quite weak. She remains on Lovenox for bilateral lower extremity DVT. On 08/23/2017 the patient is essentially the same a clinical grounds. From the respiratory standpoint, the patient has been weaned down to 30 L of oxygen high flow. She is having rest or secretions and cough and congestion. She is receiving vibration therapy and CPT to her chest. She is utilizing the incentive spirometer aggressively. She is on Lovenox for DVT treatment of the lower extremities bilaterally. She is on bronchodilators. She is on systemic steroids. She is weak. She is taking her diet very carefully and there is no noted aspiration at this point. Family is at the bedside. No other significant events overnight. There has been steady and slow improvement in the oxygenation over the past 3-4 days. Reevaluated today on 08/24/2017, patient remains symptomatic with increased shortness of breath, cough which is productive with thick yellow greenish phlegm , remains on a relatively high FiO2 and high O2 flow via high flow cannula.last ABG on 60% FiO2 showed a pO2 of 81 pCO2 of 46 pH of 7.56. Sodium today is improving down to 148 from 150 yesterday. Renal profile is about the same.lab chest x-ray continued to show left lower lobe infiltrate. Objective - Vital Signs Vital signs: Vital Signs Temp 97.7 F 08/24/17 04:00 Pulse 72 08/24/17 09:19 Resp 22 08/24/17 04:00 BP 146/95 08/24/17 04:00 Pulse Ox 90 L 08/24/17 04:00 Intake & Output 08/23/17 08/24/17 08/24/17 18:59 06:59 18:59 Intake Total 740 550 60 Output Total 1 Balance 739 550 60 Weight 62.5 kg Intake: IV 400 450 0.9 NS 400 Sodium Chloride 0.45% 1, 450 000 ml @ 50 mls/hr IV . Q20H [facility] Rx#:[id number] Intake, IV Titration 200 100 Amount Meropenem 1 gm In Sodium 200 100 Chloride 0.9% 100 ml @ 200 mls/hr IVPB Q8HR [facility] Rx#:[id number] Oral 140 60 Output: Stool 1 Other: Voiding Method Bedpan # Voids 1 0 # Bowel Movements 0 0 - Exam GENERAL EXAM: Alert, fairly comfortable in no apparent distress. Currently is on AIRVO at 55 l/min, FiO2 of 70%. HEAD: Normocephalic. EYES: Normal reaction of pupils, equal size. NOSE: Clear with pink turbinates. THROAT: No erythema or exudates. NECK: No masses, no JVD. CHEST: No chest wall deformity. LUNGS: Equal air entry, diminished at the bases, and a few scattered rhonchi. Loose congested productive cough. CVS: S1 and S2 normal with no audible murmur, regular rhythm. ABDOMEN: No hepatosplenomegaly, normal bowel sounds, no guarding or rigidity. SPINE: No scoliosis or deformity SKIN: No rashes CENTRAL NERVOUS SYSTEM: No focal deficits, tone is normal in all 4 extremities. EXTREMITIES: There is no peripheral edema. No clubbing, no cyanosis. Peripheral pulses are intact. - Labs CBC & Chem 7: 08/20/17 04:40 08/23/17 06:24 Labs: Abnormal Lab Results - Last 24 Hours (Table) 08/23/17 08/23/17 08/23/17 Range/Units 11:37 17:19 22:02 POC Glucose (mg/dL) 202 H 194 H 177 H (75-99) mg/dL 08/24/17 Range/Units 05:50 POC Glucose (mg/dL) 178 H (75-99) mg/dL Assessment and Plan Assessment: 1 severe hypoxic respiratory failure requiring high flow oxygen at 15 L per minute nasal cannula. The patient has chronic hypoxic respiratory failure however there has been obvious acute decompensation causing worsening in the oxygenation. As such further workup including a CAT scan of the chest was done that showed no evidence of any pulmonary embolism. There is bilateral lower lobe pulmonary infiltrates/pneumonia and atelectasis. Patient is being treated with broad-spectrum antibiotics. Also the patient was found to have lower extremity DVT bilaterally and currently she is on therapeutic dose of Lovenox. Also the patient is being aggressively given CPT and pulmonary toileting and use of incentive spirometer regarding mucous plugs and chest congestion. A previous bronchoscopies yielded no significant microbial cultures. The patient is quite debilitated. She is quite weak. She is having a poor effort on the incentive spirometer. We will try to wean down the FiO2 as tolerated. She is also and accommodation bronchodilators and systemic steroids. Her most recent chest x-ray from today shows no acute abnormalities On 08/23/2016, the patient is gradually improving in terms of her oxygenation, and she is currently at 30 L/m nasal cannula. We are continuing the same aggressive pulmonary toileting, bronchodilator therapy, steroid therapy and antibiotic therapy. On 08/24/2016, slight improvement noted in the last 24 hours, but continues to cough, continues to require relatively high FiO2 and high flow nasal cannula, not quite ready for discharge planning. Doubt that the patient would even tolerate bronchoscopy considering her FiO2 requirement. 2 recent history of left lower lobe pneumonia, healthcare acquired, resolved, and workup on her last admission for pulmonary embolism was negative. 3 history of left hip fracture requiring hemiarthroplasty, Coumadin is currently on hold 4 history of hypertension 5 history of chronic ongoing tobacco dependence. 6 possible aspiration pneumonia, although the findings could be related to her recent episode of extensive pneumonia involving the left lung. That is the findings could be postinflammatory in nature. But the patient is truly a high risk for aspiration. And she has a large hiatal hernia noted on the CT of the chest. She did have a modified barium swallow on 08/11/2017 showed aspiration with thin liquids, and multiple episodes of penetration with multiple consistencies. 7 chronic metabolic alkalosis treated with Diamox and the bicarb level is down to 36. Recommendation: Continue present supportive care measures antibiotics bronchodilators, Diamox,continue Merrem, will add fluconazole since her sputum cultures and bronchial washings were strongly positive for Mariaelena albicans and Mariaelena glabrata. Time with Patient: Less than 30
[2017-08-24 13:12] VITALS: BMI 26.0
--- NOTE | 2017-08-24 14:25 | PN ---
PROGRESS NOTE DATE OF SERVICE: August 24, 2017. 76-year-old white female, . Currently patient seen, evaluated, and the patient has difficulty of weaning her of oxygen and we are still suspicious of aspiration and any aspiration can cause her recovery of the oxygen and able to decrease the oxygen level or weaning her of high- flow oxygen very difficult and we will be repeating her modified barium swallow to indicate clarification of the aspiration. Each time if she aspirated causes damage to the lung and at that time, indeed continuation of the antibiotic as well as increasing the flow of oxygen. Currently, the patient and her son and her daughter at bedside and came from the [facility]. She has her laboratory indicating that her she has hyperglycemia and covered with insulin to scale and microbiology she is on Mariaelena. They found that in the bronchial washing, Mariaelena albicans as well as Mariaelena glabrata as well and patient was covered with Diflucan. She is also on meropenem at this time and the Pulmonary is following her and today is seen by Dr. Hamilton for the pulmonary as she was followed by Dr. Rodriguez last week. Him impression at this time that is severe hypoxic respiratory failure requiring high oxygen level 15 L/minute through the nasal cannula and a slight improvement but continue to cough and continue relatively on high of FiO2 and not quite ready to be discharging and he doubt at that time for any toleration to a bronchoscopy. His recent history of left lower lobe pneumonia but she has been cleared up and she has also worked up for the PE which was negative and she had left hip fracture with hemiarthroplasty. Hypertension, currently normotensive, and she had history of tobacco use and she stopped the tobacco since her last admission and discharge and the possible aspiration pneumonia is still present and we will be planning for a repeat the modified barium swallow as the aspiration to liquid could be still the culprit for the current problem. We will continue with the current treatment and antibiotic and will follow the Pulmonary recommendation. Also I did discuss it with the dietitian with low protein and we will be obtaining pre- albumin as well. MMODL / IJN: [id number] /
[2017-08-24 17:24] LABS: Glucose,Whole Blood 241 mg/dL (75-99)
[2017-08-24] MEDS: amLODIPine 5 MG TAB PO SCH (20:00)
[2017-08-24 21:05] LABS: Glucose,Whole Blood 204 mg/dL (75-99)
[2017-08-25] MEDS: ALBUTEROL NEBULIZED 2.5 MG/3 ML INHALATION PRN ×2 (00:58→05:01)
[2017-08-25] MEDS: methylPREDNISolone SOD SUCCI 40 MG/ML 1 ML VIAL IV SCH ×2 (06:30→11:42)
[2017-08-25] MEDS: ENOXAPARIN 60 MG/0.6 ML SYRINGE SQ SCH (06:31)
[2017-08-25] MEDS: PANTOPRAZOLE 40 MG TABLET PO SCH (06:31)
[2017-08-25] MEDS: INSULIN ASPART 100 UNIT/ML 1 ML 10 ML VIAL SQ SCH ×2 (06:32→11:42)
[2017-08-25 06:34] LABS: Glucose,Whole Blood 128 mg/dL (75-99)
[2017-08-25] MEDS: ASPIRIN 81 MG PO SCH (08:16)
[2017-08-25] MEDS: IRON AG/C/B12/CA/SUC.ACID/STOM 1 EACH TAB PO SCH (08:16)
[2017-08-25] MEDS: POTASSIUM CHLORIDE ER 20 MEQ TAB.ER PO SCH (08:17)
[2017-08-25] MEDS: SPIRONOLACTONE 25 MG TAB PO SCH (08:17)
[2017-08-25] MEDS: LOSARTAN 25 MG TAB PO SCH (08:17)
[2017-08-25] MEDS: METOPROLOL TARTRATE 25 MG TAB PO SCH (08:17)
[2017-08-25] MEDS: SENNOSIDES-DOCUSATE SODIUM 1 EACH TAB PO SCH (08:17)
[2017-08-25 08:29] VITALS: BP 167/75; RESP 18; TEMP 97.1
[2017-08-25] MEDS ORDERED: FLUCONAZOLE 100 MG TAB PO SCH (09:00)
[2017-08-25] MEDS: MEROPENEM 1 GM in SODIUM CHLORIDE 0.9% 100 ML IVPB SCH (11:41)
--- NOTE | 2017-08-25 12:23 | P.PN ---
Subjective Progress Note Date: 08/25/17 Principal diagnosis: Acute exacerbation of chronic obstructive pulmonary disease, acute on chronic hypoxic respiratory failure. This is a 68-year-old female who is quite familiar to our service, I saw this patient until on her last admission for shortness of breath which was felt to be related to COPD and pneumonia involving the left lower lobe. Patient was treated and she was eventually discharged home. During her last admission, she was also worked up for pulmonary embolism, and the workup was negative. Patient had hip surgery, and she remains on anticoagulation therapy in the form of within which is therapeutic with INR of 2.5 today. Patient also describes intermittent episodes of cough, and she was noted to have low pulse oximetry before she came into the ER were and her pulse oximetry was in the 60s. Patient was placed on a nonrebreather, and as she was transferred to [facility] (formerly [facility]), she was placed on BiPAP, and ABG was done while on BiPAP. Her BiPAP settings were on the percent FiO2, IPAP of 12 and EPAP of 5. ABG on Zosyn in showed a pO2 of 220 pCO2 of 51 pH of 7.44. Hence the patient will be switched from BiPAP to a nasal cannula. Chest x-ray on this admission showed no evidence of active disease. Patient denies any headaches, no blurred vision no dizziness, no fever, no chills, no hemoptysis, no chest pain. No nausea no vomiting no abdominal pain, she was mostly complaining of shortness of breath. On 08/18/2017 patient seen in follow-up on [facility] care unit. She remains on AIRVO at 25 L/m, with O2 sat at 86%. She is awake, alert, responds appropriately. Does not appear to be in any acute distress, but remains persistently hypoxemic. Otherwise remains afebrile, hemodynamically stable. Repeat CTA chest was done today, results showed no evidence of pulmonary embolism, and increasing basilar patchy infiltrates and areas of compressive atelectasis. Large fixed hiatal hernia was seen again, and the pulmonary nodule in the left upper lobe measuring 8.6 mm with slightly irregular margins that will have to be followed up on. Hilar structures showed no evidence of a mass. Patient has been diuresed on Lasix, and has now developed significant metabolic alkalosis, with CO2 at 52 on labs from 08/16/2017. Blood gases were ordered and reviewed, pH 7.61, pCO2 is 51, pO2 is 51, and bicarb is 51, this was done and FiO2 of 60%. Patient has been off her anticoagulation since last week, we will resume her Lovenox at therapeutic dose. On 08/19/2017 seen in follow-up. Remains on AIRVO with FiO2 of 80%, satting 97% . Patient is resting comfortably in bed, somewhat somnolent, but arouses easily to verbal stimuli. She has percent, and 2 granddaughters present at the bedside. They're expressing concern over patient's ongoing persistent hypoxemia , overall medical debility. There was a long discussion patient's current condition. Today we obtained CTA chest, that showed no evidence of pulmonary embolism, but there are basilar patchy infiltrates with areas of compressive atelectasis. We had ordered pulmonary perfusion scan for possible shunt were explained patient's hypoxemia. But related to patient's poor respiratory status , and inability to lie flat for the test, we will wait till tomorrow. Patient did have a barium swallow evaluation that showed positive aspiration with thin liquids and multiple episodes of penetration with multiple consistencies. Echocardiogram on 2016 has been reviewed and showed EF 55-60%, with mild to moderate pulmonary hypertension, with mild to moderate right ventricular systolic pressure 46 mmHg. Bronchial washings show Mariaelena albicans. He is afebrile. Lung sounds are positive for expiratory wheezes on the left, and crackles over right lower base, patient still has a very congested loose cough, production of small amount of weight yellow sputum. Blood work has been reviewed, WBCs 15, hemoglobin stable at 10.7, serum sodium is 145, serum potassium is 2.6, carbon dioxide is elevated, carbon dioxide is 52, creatinine 0.90. Patient still has metabolic alkalosis, yesterday we gave 2 doses of Diamox, we will give 2 more doses today. We will correct the serum potassium with potassium replacement protocol. On 08/20/2017 patient seen in follow-up. Resting quietly in bed, in no acute distress. FiO2 is currently down to 70% per high flow nasal cannula, with AIRVO. O2 sat is at 92-93%. This will be further weaned down. Patient denies any worsening dyspnea, still has pretty significantly congested nonproductive cough. Lung sounds are positive for crackles over left lower lobe, some wheezes on posterior left lower lobe, diminished on the right. Overall patient states she feels slightly better. 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 Chest x-ray was reviewed, and he was clear, with minimal plate atelectasis at the left base. Patient remains on bedrest, has been very minimally active, has significant generalized weakness. She needs aggressive pulmonary toileting, incentive spirometer, chest physiotherapy. Continue present antibiotics, bronchial washings and sputum culture showed Mariaelena albicans. Today's lab work was reviewed, WBC remain at 15.4, stable hemoglobin at 10, serum sodium is up to 147, serum potassium is 2.8 , chloride is 94, Avonex is 49, BUN is 43, and creatinine is 1. Her potassium is being corrected per protocol. Yesterday we started patient on meropenem to broaden her antibiotic coverage in addition to her fluconazole for the evidence of Mariaelena in her bronchial washings and sputum. Hemodynamically patient remains stable. Still unable to travel down to the nuclear medicine department for the pulmonary perfusion scan, as well as her repeat MBS study. She had previously was noted to be aspirating on thin liquids during the previous MBS study from 08/12/2017. For that reason patient has been initiated on nectar thick liquids. Extensive discussion was held with the patient's son and cybjsoac-mz-jes, as well as the attending physician about the patient's ongoing hypoxia. On 08/21/2017 patient seen in the selective care floor. ABGs from this morning were reviewed, showing improvement of metabolic alkalosis, hypoxemia. PH was 7.56, pCO2 is 46, pO2 was 81, this was done and FiO2 of 60%. The FiO2 was weaned down to 55%. Lab work shows his sodium 148, serum potassium is 3.1, carbon dioxide is down to 46, BUN is 42, creatinine 0.83. Patient's chest x- ray was reviewed, shows chronic changes without evidence of any acute pulmonary disease. Patient is awake, alert, looking better today. She has been receiving CPT, incentive spirometer effort is 250-500 mL was. Continue with aggressive pulmonary toileting. Patient is too weak to get up out of bed. She is tolerating oral intake, currently on nectar thick liquids and soft diet. Vital signs are stable, patient remains afebrile. Lung sounds are positive for scattered rhonchi, still has some congested productive cough with small amount of clear sputum. Cardiology consult was requested in view of patient's hypoxemia. The plan is for patient to undergo bubble echo study at the bedside today. On 08/22/2017 the patient is being seen in follow-up follow-up. Patient is doing essentially the same as yesterday. Oxygen flows at 50 L/m nasal cannula to maintain a saturation above 90%. She is using incentive spirometer. She has a congested cough that she is unable to bring up much of sputum. She is still pulling very low volumes and I asked. CPT is being done to her chest. Cardiology repeated echocardiogram and the patient has a preserved LV function. Her repeat chest x-ray from today shows COPD and mild cardiomegaly. There is some scarring versus atelectasis in left lung base. No other acute inflammatory is otherwise are noted. Oral intake is diminished. The patient is quite weak. She remains on Lovenox for bilateral lower extremity DVT. On 08/23/2017 the patient is essentially the same a clinical grounds. From the respiratory standpoint, the patient has been weaned down to 30 L of oxygen high flow. She is having rest or secretions and cough and congestion. She is receiving vibration therapy and CPT to her chest. She is utilizing the incentive spirometer aggressively. She is on Lovenox for DVT treatment of the lower extremities bilaterally. She is on bronchodilators. She is on systemic steroids. She is weak. She is taking her diet very carefully and there is no noted aspiration at this point. Family is at the bedside. No other significant events overnight. There has been steady and slow improvement in the oxygenation over the past 3-4 days. Reevaluated today on 08/24/2017, patient remains symptomatic with increased shortness of breath, cough which is productive with thick yellow greenish phlegm , remains on a relatively high FiO2 and high O2 flow via high flow cannula.last ABG on 60% FiO2 showed a pO2 of 81 pCO2 of 46 pH of 7.56. Sodium today is improving down to 148 from 150 yesterday. Renal profile is about the same.lab chest x-ray continued to show left lower lobe infiltrate. The patient is seen again today 08/25/2017 in follow-up on the selective care unit. She continues to require high flow oxygenation via the AirVo system. She is at 50% FiO2 with a flow rate of 30. She is maintaining O2 saturations at 90. She remains quite weak and tired. Her work of breathing remains quite difficult. The plan was for barium swallow today to determine if the patient may be aspirating. She is declining to go through any further procedures. She is requesting to be allowed to be kept comfortable only. Family is at the bedside. Objective - Vital Signs Vital signs: Vital Signs Temp 97.1 F L 08/25/17 08:00 Pulse 78 08/25/17 11:43 Resp 18 08/25/17 11:43 BP 167/75 08/25/17 08:00 Pulse Ox 90 L 08/25/17 08:00 Intake & Output 08/24/17 08/25/17 08/25/17 18:59 06:59 18:59 Intake Total 930 900 Balance 930 900 Weight 62.5 kg 66.5 kg Intake: IV 600 800 Sodium Chloride 0.45% 1, 600 800 000 ml @ 50 mls/hr IV . Q20H JASON Rx#:[id number] Intake, IV Titration 100 100 Amount Meropenem 1 gm In Sodium 100 100 Chloride 0.9% 100 ml @ 200 mls/hr IVPB Q8HR JASON Rx#:[id number] Oral 230 Other: Voiding Method Bedpan # Voids 1 2 # Bowel Movements 0 1 - Exam GENERAL EXAM: Weak and tired, cachectic. Currently on a AirVo 30 L/m, FiO2 50%. HEAD: Normocephalic. EYES: Normal reaction of pupils, equal size. NOSE: Clear with pink turbinates. THROAT: No erythema or exudates. NECK: No masses, no JVD. CHEST: No chest wall deformity. LUNGS: Equal air entry, diminished at the bases, few rhonchi, congestive cough with production of white and yellow sputum CVS: S1 and S2 normal with no audible murmur, regular rhythm. ABDOMEN: No hepatosplenomegaly, normal bowel sounds, no guarding or rigidity. SPINE: No scoliosis or deformity SKIN: No rashes CENTRAL NERVOUS SYSTEM: No focal deficits, tone is normal in all 4 extremities. EXTREMITIES: There is no peripheral edema. No clubbing, no cyanosis. Peripheral pulses are intact. - Labs CBC & Chem 7: 08/20/17 04:40 08/23/17 06:24 Labs: Abnormal Lab Results - Last 24 Hours (Table) 08/24/17 08/24/17 08/24/17 Range/Units 11:59 16:57 21:04 POC Glucose (mg/dL) 222 H 241 H 204 H (75-99) mg/dL 08/25/17 Range/Units 06:31 POC Glucose (mg/dL) 128 H (75-99) mg/dL Microbiology - Last 24 Hours (Table) 08/13/17 11:00 Acid Fast Bacilli Smear - Final Bronchial Washings - Left Acid Fast Bacilli Culture - Preliminary Assessment and Plan Assessment: Impression: 1 severe hypoxic respiratory failure requiring high flow oxygen via AirVo. The patient has chronic hypoxic respiratory failure however there has been obvious acute decompensation causing worsening in the oxygenation. As such further workup including a CAT scan of the chest was done that showed no evidence of any pulmonary embolism. There is bilateral lower lobe pulmonary infiltrates/ pneumonia and atelectasis. Patient is being treated with broad-spectrum antibiotics. Also the patient was found to have lower extremity DVT bilaterally and currently she is on therapeutic dose of Lovenox. Also the patient is being aggressively given CPT and pulmonary toileting and use of incentive spirometer regarding mucous plugs and chest congestion. A previous bronchoscopies yielded no significant microbial cultures. The patient is quite debilitated. She is quite weak. She is having a poor effort on the incentive spirometer. We will try to wean down the FiO2 as tolerated. She is also and accommodation bronchodilators and systemic steroids. Her most recent chest x-ray from today shows no acute abnormalities On 08/23/2017, the patient is gradually improving in terms of her oxygenation, and she is currently at 30 L/m nasal cannula. We are continuing the same aggressive pulmonary toileting, bronchodilator therapy, steroid therapy and antibiotic therapy. On 08/24/2017, slight improvement noted in the last 24 hours, but continues to cough, continues to require relatively high FiO2 and high flow nasal cannula, not quite ready for discharge planning. Doubt that the patient would even tolerate bronchoscopy considering her FiO2 requirement. On 08/25/2017 there is been very little improvement. The patient is refusing barium swallow to evaluate for aspiration. She is refusing any further treatments. She is requested to be placed on comfort care. Her family is at the bedside. They're all in agreement. 2 recent history of left lower lobe pneumonia, healthcare acquired, resolved, and workup on her last admission for pulmonary embolism was negative. 3 history of left hip fracture requiring hemiarthroplasty, Coumadin is currently on hold 4 history of hypertension 5 history of chronic ongoing tobacco dependence. 6 possible aspiration pneumonia, although the findings could be related to her recent episode of extensive pneumonia involving the left lung. That is the findings could be postinflammatory in nature. But the patient is truly a high risk for aspiration. And she has a large hiatal hernia noted on the CT of the chest. She did have a modified barium swallow on 08/11/2017 showed aspiration with thin liquids, and multiple episodes of penetration with multiple consistencies. 7 chronic metabolic alkalosis treated with Diamox and the bicarb level is down to 36. Plan: The patient was seen and evaluated by Dr. Hamilton. The family and the patient have requested hospice/comfort care. We will not perform any more procedures or interventions on her per their request. Hospice referral is in place.. We' ll sign off the case. I, the cosigning physician, have performed a history and physical examination on the patient. Lung sounds have bilateral scattered rhonchi more so on the left lung base.. Maintaining O2 saturations in the 90's on AirVo at 30 l/min and 50% Fi02. I have discussed the assessment and plan of care with my nurse practitioner, Tisha Carpenter. I attest the above documented note as dictated by her.
[2017-08-25] MEDS: BUDESONIDE 1 MG/2 ML NEBU INHALATION SCH (12:41)
[2017-08-25] MEDS: FORMOTEROL FUMARATE 20 MCG/2 ML NEBU INHALATION SCH (12:41)
[2017-08-25] MEDS: IPRATROPIUM-ALBUTEROL 3 ML NEB INHALATION SCH ×2 (12:41→13:35)
[2017-08-25 13:50] VITALS: PULSE 84
[2017-08-25] MEDS ORDERED: ONDANSETRON 4 MG/2 ML VIAL IVP PRN (13:50)
[2017-08-25] MEDS ORDERED: SCOPOLAMINE 1.5MG/72HR PATCH TRANSDERM PRN (13:50)
[2017-08-25] MEDS ORDERED: LORazepam 2 MG/ML INJ IV PRN (13:50)
[2017-08-25] MEDS ORDERED: BISACODYL 10 MG SUPP RECTAL PRN (13:57)
[2017-08-25] MEDS ORDERED: MORPHINE SULFATE (100 MG/2 ML) 100 MG in SODIUM CHLORIDE 0.9% 100 ML IV SCH (14:00)
[2017-08-25] MEDS ORDERED: ACETAMINOPHEN SUPPOSITORY 650 MG SUPP RECTAL PRN (14:01)
== END 2017-08-25 13:34 | disposition hospice, inpatient (51) | DRG 166 ==
LOC: EC 08:44 → 6SEL 10:41
PROVIDERS: ADMIT Internal Medicine; ATTEND Internal Medicine
PROC: 0B9J8ZX Drainage of Left Lower Lung Lobe, Via Natural or Artificial Opening Endoscopic, Diagnostic (ICD-10-PCS; principal; 2017-08-09)
PROC: 5A09357 Assistance with Respiratory Ventilation, Less than 24 Consecutive Hours, Continuous Positive Airway Pressure (ICD-10-PCS; 2017-08-13)
DX: J69.0 Pneumonitis due to inhalation of food and vomit (principal); J96.21 Acute and chronic respiratory failure with hypoxia; I50.31 Acute diastolic (congestive) heart failure; E87.4 Mixed disorder of acid-base balance; I82.403 Acute embolism and thrombosis of unspecified deep veins of lower extremity, bilateral; E87.0 Hyperosmolality and hypernatremia; J44.1 Chronic obstructive pulmonary disease with (acute) exacerbation; J98.11 Atelectasis; I95.9 Hypotension, unspecified; Z51.5 Encounter for palliative care; E11.65 Type 2 diabetes mellitus with hyperglycemia; I08.3 Combined rheumatic disorders of mitral, aortic and tricuspid valves; I11.0 Hypertensive heart disease with heart failure; D63.8 Anemia in other chronic diseases classified elsewhere; D50.9 Iron deficiency anemia, unspecified; F17.200 Nicotine dependence, unspecified, uncomplicated; E78.5 Hyperlipidemia, unspecified; E87.6 Hypokalemia; I25.10 Atherosclerotic heart disease of native coronary artery without angina pectoris; I27.20 Pulmonary hypertension, unspecified; K21.9 Gastro-esophageal reflux disease without esophagitis; K44.9 Diaphragmatic hernia without obstruction or gangrene; M19.90 Unspecified osteoarthritis, unspecified site; M81.0 Age-related osteoporosis without current pathological fracture; T38.0X5A Adverse effect of glucocorticoids and synthetic analogues, initial encounter; R91.1 Solitary pulmonary nodule; Z79.01 Long term (current) use of anticoagulants; Z79.82 Long term (current) use of aspirin; Z79.899 Other long term (current) drug therapy; Z86.718 Personal history of other venous thrombosis and embolism; Z87.01 Personal history of pneumonia (recurrent); Z96.642 Presence of left artificial hip joint; Z88.0 Allergy status to penicillin; Z88.5 Allergy status to narcotic agent; Z88.6 Allergy status to analgesic agent; Z91.038 Other insect allergy status; Z91.013 Allergy to seafood
CPT/HCPCS: 31624; 36415; 36600; 71010; 71045; 71275; 74230; 80048; 80053; 81001; 82550; 82553; 82607; 82728; 82805; 83036; 83540; 83550; 83605; 83735; 83880; 84132; 84484; 85025; 85045; 85379; 85610; 85730; 87040; 87070; 87086; 87102; 87116; 87205; 87206; 87252; 87496; 87498; 87502; 87529; 87798; 88108; 88305; 89050; 93005; 93306; 93970; 94640; 94644; 94660; 94667; 94668; 94760; 96361; 96374; 96375; 99291

== ENCOUNTER 2017-08-25 13:41 | Inpatient (IN) | payer MEDICAID ==
[2017-08-25 14:05] VITALS: BMI 27.6
[2017-08-25] MEDS ORDERED: LORazepam 2 MG/ML INJ IV PRN (14:05)
[2017-08-25] MEDS ORDERED: ACETAMINOPHEN SUPPOSITORY 650 MG SUPP RECTAL PRN (14:05)
[2017-08-25] MEDS ORDERED: SCOPOLAMINE 1.5MG/72HR PATCH TRANSDERM PRN (14:05)
[2017-08-25] MEDS ORDERED: ONDANSETRON 4 MG/2 ML VIAL IVP PRN (14:05)
[2017-08-25] MEDS ORDERED: MORPHINE SULFATE (100 MG/2 ML) 100 MG in SODIUM CHLORIDE 0.9% 100 ML IV SCH (14:15)
--- NOTE | 2017-08-25 21:47 | PN ---
PROGRESS NOTE She is a 76-year-old. NEW DATA: She is NO CODE. DATA: 5 foot 1 inches, weight 66.5 kg, BSA 1.66 m2. BMI 27.7 kg per square m. SHE HAS ALLERGIC TO CODEINE, INSECT VENOM AND PENICILLIN AND SHELLFISH DERIVATIVES. On seeing the patient today, they found that her son and the family and her daughter around the bed and the patient with the family decided to be NO-CODE and just palliative care with hospice and apparently the because of the failure of the therapy of oxygen for weaning her and the prognosis is very poor and also we have the issue of the swallowing and aspiration and continuous trauma to the lung and at the same time they could not do the test again as I talked to the speech therapist and stated that they discussed with the therapy, they could not do the test on high-flow oxygen at that time will not be appropriate at the same time. However, the first one showed that aspiration with fluid and they started the thick but the patient is coughing with each time to drink anything. The family the reached the decision that NO CODE, COMFORT CARE and HOSPICE. At that time, consultation with [facility] hospice group and they came and evaluated the patient and they will be starting today with the cleaning the medication and only morphine for improving the lung and scopolamine for the expected secretion and nausea and vomiting injection with Zofran. This is end of life and possibility once the patient taken off the high-flow probably the demise and patient will with the no supportive oxygen. We will stop any blood draws and the patient will be on Hospice until the Hospice approach if she need to be moved to a skilled nursing or continued in the hospital. On seeing her today she was somnolent, sleepy, but able to wake up and answer and her lungs is bilateral crackles and rhonchi. The heart was regular sinus and abdomen was soft. Positive bowel sounds and extremities no edema. Currently on the laboratory shows no result and high-flow oxygen was removed and the patient only observed by her nurses and the hospice has been ordering the hospice routine care was applied with the agreement of the family and the son and daughter. With the grave prognosis. Length of discussion at least 35 minutes. BHUMIKA / VERONIQUEN: [id number] /
[2017-08-25 22:06] VITALS: RESP 8
--- NOTE | 2017-08-26 15:00 | P.DS ---
Providers Date of admission: 08/25/17 13:41 Expected date of discharge: 08/25/17 Attending physician: Benigno Salinas Primary care physician: Benigno Salinas There is a dictation on the discharge note: Admit physician MD Zaina,FACP. Date of service 08/26/2017. Patient at 10:30 PM on 08/25/2017 Patient was on hospice. She was comfort only and a high oxygen flow has been discontinued with the clearance from the pulmonary on the request of the patient and the family her son and her daughter. Dictation on 08/25/2017 considered for discharge, any status of progress note with the same diagnosis and hospice care. Plan - Discharge Summary New Discharge Prescriptions: No Action Acetaminophen/Diphenhydramine [Tylenol PM 500-25mg] 1 tab PO HS PRN PRN Reason: Insomnia Aspirin EC [Ecotrin Low Dose] 81 mg PO DAILY Cetirizine HCl [Zyrtec] 10 mg PO DAILY Metoprolol Succinate (ER) [Toprol XL] 50 mg PO BID Omeprazole Magnesium [Prilosec OTC] 20 mg PO DAILY Telmisartan [Micardis] 80 mg PO DAILY Sennosides-Docusate Sodium [Senokot-S] 1 tab PO BID #60 tablet amLODIPine [Norvasc] 5 mg PO HS tab traMADol HCL [Ultram] 50 mg PO Q6H PRN PRN Reason: Pain Warfarin [Coumadin] 2.5 mg PO DAILY@1800 Albuterol Sulfate [Proair Hfa] 1 - 2 puff INHALATION RT-Q6H PRN PRN Reason: Shortness Of Breath Albuterol Nebulized [Ventolin Nebulized] 2.5 mg INHALATION RT-Q2H PRN PRN Reason: Shortness Of Breath Furosemide [Lasix] 20 mg PO DAILY Discharge Medication List Acetaminophen/Diphenhydramine [Tylenol PM 500-25mg] 1 tab PO HS PRN 06/17/17 [ History] Aspirin EC [Ecotrin Low Dose] 81 mg PO DAILY 06/17/17 [History] Cetirizine HCl [Zyrtec] 10 mg PO DAILY 06/17/17 [History] Metoprolol Succinate (ER) [Toprol XL] 50 mg PO BID 06/17/17 [History] Omeprazole Magnesium [Prilosec OTC] 20 mg PO DAILY 06/17/17 [History] Telmisartan [Micardis] 80 mg PO DAILY 06/17/17 [History] Sennosides-Docusate Sodium [Senokot-S] 1 tab PO BID #60 tablet 06/21/17 [Rx] amLODIPine [Norvasc] 5 mg PO HS tab 06/22/17 [Rx] Albuterol Nebulized [Ventolin Nebulized] 2.5 mg INHALATION RT-Q2H PRN 08/09/17 [ History] Albuterol Sulfate [Proair Hfa] 1 - 2 puff INHALATION RT-Q6H PRN 08/09/17 [ History] Furosemide [Lasix] 20 mg PO DAILY 08/09/17 [History] Warfarin [Coumadin] 2.5 mg PO DAILY@1800 08/09/17 [History] traMADol HCL [Ultram] 50 mg PO Q6H PRN 08/09/17 [History] Discharge Disposition: - Preliminary Cause of Preliminary Cause of : Severe hypoxemia, emphysema, bronchitis, COPD, required high flow oxygen.
== END 2017-08-25 22:30 | disposition expired | DRG 189 ==
LOC: 6SEL 13:41 → UNDODISIN 08-26 06:28 → 5MS5E 08-27 10:26 → 6SEL 08-27 10:26
PROVIDERS: ADMIT Internal Medicine; ATTEND Internal Medicine
DX: J96.21 Acute and chronic respiratory failure with hypoxia (principal); I27.20 Pulmonary hypertension, unspecified; I11.9 Hypertensive heart disease without heart failure; I08.3 Combined rheumatic disorders of mitral, aortic and tricuspid valves; J44.9 Chronic obstructive pulmonary disease, unspecified; Z66 Do not resuscitate; Z91.038 Other insect allergy status; Z88.5 Allergy status to narcotic agent; Z88.0 Allergy status to penicillin; Z91.013 Allergy to seafood; Z88.6 Allergy status to analgesic agent; I25.10 Atherosclerotic heart disease of native coronary artery without angina pectoris; M81.0 Age-related osteoporosis without current pathological fracture; Z86.718 Personal history of other venous thrombosis and embolism; Z87.891 Personal history of nicotine dependence; Z96.642 Presence of left artificial hip joint